=== PATIENT | male | born 1955 | race Caucasian/White ===

== ENCOUNTER 2023-03-21 21:50 | Outpatient (REF) | payer MEDICARE, SELFPAY | END 2023-03-21 21:51 | disposition home or self-care (01) | LOC: LAB 21:50 | PROVIDERS: PCP Internal Medicine; Visit Provider Internal Medicine | DX: N39.0 Urinary tract infection, site not specified (principal) | CPT/HCPCS: 87086; 87150; 87186 ==

== ENCOUNTER 2023-05-19 14:03 | Observation (INO) | payer MEDICARE, SELFPAY ==
[2023-05-19] VITALS (22 sets, daily range): BP systolic 132–186; BP diastolic 87–101; PULSE 75–129; RESP 13–24; TEMP 36.4–36.9; O2SAT 94–99; BMI 35.9; BMI 35.3
--- NOTE | 2023-05-19 14:08 | ECG_ITS ---
[facility] Test Date: 2023-05-19 Pat Name: SUSANNE GARCIA Department: Room: - Gender: Male Perch Machine Inspector: : 1955 Requested By: SHAIKH CELESTINO Order Number: [id number] Reading MD: JAMEL ARAIZA Measurements Intervals [place] Rate: 125 P: -30 CA: 144 QRS: 58 QRSD: 88 T: 58 QT: 298 QTc: 372 Interpretive Statements 1120 Sinus tachycardia 1574 with frequent ventricular premature complexes 4068 Nonspecific Twave abnormality 9140 abnormal rhythm ECG No previous ECG available for comparison Electronically Signed On 05-20-2023 7:05:56 EDT by JAMEL ARAIZA
--- NOTE | 2023-05-19 14:08 | ED.CHESTPAI1 ---
HPI - Chest Pain General Chief Complaint: Chest Pain Stated Complaint: chest pain Time Seen by Provider: 05/19/23 14:07 History of Present Illness HPI narrative: patient is a 68-year-old male with a history of hypertension, hyperlipidemia presents to the Emergency Room for an episode of feeling clammy with the low blood pressure and chest tightness that began just prior to arrival. He states he and his for [employer] when he had this episode, he states he is feeling better at this time. He states the chest tightness has been coming and going for a while, but it seems to be lasting longer recently. He has not had any fevers, cough, congestion. He denies any peripheral edema. He has no history of coronary artery disease or CVA. He is not a smoker. no medications taken prior to arrival Risk Factors Coronary artery disease risk factors: hyperlipidemia and hypertension Related Data Home Medications Medication Instructions Recorded Confirmed alfuzosin 10 mg tablet,extended 10 mg PO DAILY 05/19/23 05/19/23 release 24 hr allopurinol 300 mg tablet 300 mg PO DAILY 05/19/23 05/19/23 atorvastatin 20 mg tablet 20 mg PO DAILY 05/19/23 05/19/23 losartan 100 mg tablet 100 mg PO DAILY 05/19/23 05/19/23 Allergies Allergy/AdvReac Type Severity Reaction Status Date / Time Penicillins Allergy Severe Verified 05/19/23 14:05 sulfamethoxazole Allergy Severe Verified 05/19/23 14:12 [From Bactrim] trimethoprim [From Bactrim] Allergy Severe Verified 05/19/23 14:12 Review of Systems ROS Constitutional Denies: fever or chills Ears, nose, mouth, and throat Denies: throat pain Cardiovascular Reports: chest pain Respiratory Denies: shortness of breath or cough Gastrointestinal Denies: nausea or vomiting Musculoskeletal Denies: back pain, neck pain or extremity swelling Neurological Denies: headache Hematologic/Lymphatic Denies: easy bruising Allergic/Immunologic Denies: hives PFSH PFSH Social History Smoking status: Never smoker Exam Narrative Exam Narrative: Gen.: Awake, alert, in no distress Head: Normocephalic, atraumatic ENT: Moist mucous membranes Respiratory: No respiratory distress, lungs clear bilaterally Cardio: Regular rate and rhythm Gastrointestinal: Abdomen is soft, nondistended and nontender to palpation Extremities: Moves extremities equally, no pedal edema Psych: Normal mood and affect Neuro: No focal neuro deficit Skin: Warm, dry, intact Constitutional Vital Signs, click to edit/add: Last Vital Signs Temp 97.5 F L 05/19/23 14:06 Pulse 108 H 05/19/23 16:00 Resp 16 05/19/23 16:00 BP 156/91 H 05/19/23 16:00 Pulse Ox 94 L 05/19/23 16:00 O2 Del Method Room Air 05/19/23 14:06 Course Vital Signs Vital signs: Vital Signs Temperature 97.5 F L 05/19/23 14:06 Pulse Rate 129 H 05/19/23 14:06 Respiratory Rate 20 05/19/23 14:06 Blood Pressure 186/96 H 05/19/23 14:06 Pulse Oximetry 97 05/19/23 14:06 Oxygen Delivery Method Room Air 05/19/23 14:06 Temperature 97.5 F L 05/19/23 14:06 Pulse Rate 108 H 05/19/23 16:00 Respiratory Rate 16 05/19/23 16:00 Blood Pressure 156/91 H 05/19/23 16:00 Pulse Oximetry 94 L 05/19/23 16:00 Oxygen Delivery Method Room Air 05/19/23 14:06 MDM - Chest Pain MDM Narrative Medical decision making narrative: patient with risk factors, no severe chest pain in the Emergency Room but he was tachycardic. He was treated with aspirin and fluids with some improvement. CTA of the chest with no evidence of acute process. Repeat troponin is pending. Case was discussed with Dr. De La Vega who revealed that the patient has had a stress test in the last year, he is agreeable to admission, patient will be admitted to stepdown for further evaluation and treatment with cardiac rule out. Stable at this time on reevaluation by attending physician. Medical Records Data Attestation: I reviewed the patient's medical records. Lab Data Attestation: I reviewed the patient's lab results. Labs: Lab Results 05/19/23 05/19/23 Range/Units 14:16 15:41 WBC 10.0 (4.0-11.0) 10^3/uL RBC 5.38 (4.70-6.10) 10^6/uL Hgb 16.3 (14.0-18.0) g/dL Hct 48.4 (42.0-54.0) % MCV 90.0 (80.0-94.0) fL MCH 30.3 (25.9-34.0) pg MCHC 33.7 (29.9-35.2) g/dL RDW 12.9 (11.0-15.0) % Plt Count 179 (150-450) 10^3/uL MPV 11.5 (9.5-13.5) fL Neut % (Auto) 66.5 (43.0-75.0) % Lymph % (Auto) 23.5 (20.5-60.0) % [place] % (Auto) 8.8 (1.7-12.0) % Eos % (Auto) 0.4 L (0.9-7.0) % Baso % (Auto) 0.3 (0.2-2.0) % Neut # (Auto) 6.7 H (1.4-6.5) 10^3/uL Lymph # (Auto) 2.4 (1.2-3.8) 10^3/uL [place] # (Auto) 0.9 H (0.3-0.8) 10^3/uL Eos # (Auto) 0.0 (0.0-0.7) 10^3/uL Baso # (Auto) 0.0 (0.0-0.1) 10^3/uL Abs Immat Gran (auto) 0.05 H (0.00-0.03) 10^3/uL Imm/Tot Granulo (auto) 0.5 (0.0-0.5) % PT 10.6 (9.0-11.6) sec INR 1.00 APTT 25.2 (22.3-36.2) sec Sodium 137 (136-145) mmol/L Potassium 3.0 L (3.5-5.1) mmol/L Chloride 100 (98-107) mmol/L Carbon Dioxide 29.4 (21.0-32.0) mmol/L Anion Gap 10.6 BUN 14.0 (7.0-18.0) mg/dL Creatinine 1.25 (0.70-1.30) mg/dL Est GFR ( Amer) >60 (>=60) Est GFR (Non-Af Amer) 58 L (>=60) BUN/Creatinine Ratio 11.2 Glucose 166 H (74-106) mg/dL Calcium 9.3 (8.5-10.1) mg/dL Total Bilirubin 1.3 H (0.2-1.0) mg/dL AST 22 (15-37) U/L ALT 37 (16-63) U/L Alkaline Phosphatase 81 (46-116) U/L Troponin I High Sens 8.5 8.4 (4.0-76.1) pg/mL NT-Pro-B Natriuret Pep 9.0 (<=900.0) pg/mL Total Protein 7.1 (6.4-8.2) g/dL Albumin 4.2 (3.4-5.0) g/dL Globulin 2.9 g/dL Albumin/Globulin Ratio 1.[address] scan - chest: Attestation: I have reviewed the pertinent imaging results. Radiologist's impression: Procedure: CT angio chest EXAM: CT angio chest; [id number] REASON FOR EXAM: PE, Tachycardia, chest pain/hypotension TECHNIQUE: Helical CT images of the chest were obtained after the administration of IV contrast. Multiplanar reformats and maximum intensity projection images were created at the scanner. Dose reduction technique used: Automated exposure control and/or adjustment of the mA and/or kV according to patient size and/or use of iterative reconstruction technique. COMPARISON: None. FINDINGS: Technical quality: Adequate. Chest: Support devices: None. Visualized Thyroid: No nodules. Chest wall: Within normal limits. Maryuri/mediastinum/esophagus: No mass. Thoracic lymph nodes: No enlarged supraclavicular, mediastinal, hilar or axillary lymph nodes. Heart and vasculature: -No pulmonary artery filling defect to suggest pulmonary embolism. -No pericardial effusion or aortic aneurysm. -Severe coronary artery calcifications versus stents. Visualized portions of the upper abdomen: Within normal limits. Musculoskeletal: No acute abnormality or suspicious osseous lesion. Lungs/airways: -No significant nodule or infiltrate. -The central airways are patent. Pleura: No pleural effusion or pneumothorax. IMPRESSION: Negative exam. No pulmonary embolism or any acute cardiopulmonary abnormality demonstrated. Electronically authenticated by: SALVADOR REENE Date: 05/19/2023 15:56 ECG Data Attestation: I personally reviewed and interpreted this ECG as follows: (sinus tachycardia at a rate of 125, frequent PVCs with no acute ST elevation. EKG reviewed by attending physician) ECG interpretation date: 05/19/23 ECG interpretation time: 14:18 Heart Score History: Moderatly Suspicious ECG: Normal Age: >65 years Risk Factors: >3 Risk Factors/ HX of CAD:2 Troponin: <Normal Limit Total Heart Score Recommendations & Risks:: 5 Discharge Plan Discharge Chief Complaint: Chest Pain Clinical Impression: Chest pain Time of Disposition Decision: 16:13 Prescriptions / Home Meds: No Action allopurinol 300 mg tablet 300 mg PO DAILY losartan 100 mg tablet 100 mg PO DAILY atorvastatin 20 mg tablet 20 mg PO DAILY alfuzosin 10 mg tablet extended release 24 hr 10 mg PO DAILY Stand Alone Forms: Portal Instructions Referrals: Shaikh De La Vega MD [Primary Care Provider] - 1 week
[2023-05-19] MEDS: 0.9 % SODIUM CHLORIDE 1,000 ML 1000 ML IV (14:23)
[2023-05-19] MEDS: ASPIRIN 81 MG TAB.CHEW 162 MG PO (14:24)
[2023-05-19 14:25] LABS: Basophils Percent Auto 0.3 % (0.2-2.0); Eosinophils Percent Auto 0.4 % (0.9-7.0); Hematocrit 48.4 % (42.0-54.0); Hemoglobin 16.3 g/dL (14.0-18.0); Immature Granulocytes Abs Auto 0.05 10^3/uL (0.00-0.03); Immature Granulocytes Pct Auto 0.5 % (0.0-0.5); Lymphocytes Absolute Auto 2.4 10^3/uL (1.2-3.8); Lymphocytes Percent Auto 23.5 % (20.5-60.0); Mean Corpuscular HGB Conc 33.7 g/dL (29.9-35.2); Mean Corpuscular Hemoglobin 30.3 pg (25.9-34.0); Mean Platelet Volume 11.5 fL (9.5-13.5); Monocytes Absolute Auto 0.9 10^3/uL (0.3-0.8); Monocytes Percent Auto 8.8 % (1.7-12.0); Neutrophils Absolute Auto 6.7 10^3/uL (1.4-6.5); Neutrophils Percent Auto 66.5 % (43.0-75.0); Platelet Count 179 10^3/uL (150-450); Red Blood Count 5.38 10^6/uL (4.70-6.10); Red Cell Distribution Width 12.9 % (11.0-15.0)
[2023-05-19 14:40] LABS: Partial Thromboplastin Time 25.2 sec (22.3-36.2); Prothrombin Time 10.6 sec (9.0-11.6)
[2023-05-19 15:03] LABS: Alanine Aminotransferase 37 U/L (16-63); Albumin Globulin Ratio 1.4; Albumin Level 4.2 g/dL (3.4-5.0); Alkaline Phosphatase 81 U/L (46-116); Anion Gap 10.6; Aspartate Amino Transferase 22 U/L (15-37); BUN Creatinine Ratio 11.2; Bilirubin Total 1.3 mg/dL (0.2-1.0); Calcium 9.3 mg/dL (8.5-10.1); Carbon Dioxide 29.4 mmol/L (21.0-32.0); Chloride 100 mmol/L (98-107); Estimated GFR (African America >60 (>=60); Estimated GFR (Non-African Ame 58 (>=60); Globulin 2.9 g/dL; Glucose 166 mg/dL (74-106); Sodium 137 mmol/L (136-145); Total Protein 7.1 g/dL (6.4-8.2); Troponin I High Sensitivity 8.5 pg/mL (4.0-76.1)
--- NOTE | 2023-05-19 15:39 | CT_ITS ---
The [address] [address] Patient Name: SUSANNE GARCIA MRN: [id number] date: 1955 Sex: M Assigned Patient Location: ER Current Patient Location: Accession/Order Number: [id number] Exam Date: 05/19/2023 15:30 Report Date: 05/19/2023 15:56 At the request of: JEMAL ANDREW Procedure: CT angio chest EXAM: CT angio chest; [id number] REASON FOR EXAM: PE, Tachycardia, chest pain/hypotension TECHNIQUE: Helical CT images of the chest were obtained after the administration of IV contrast. Multiplanar reformats and maximum intensity projection images were created at the scanner. Dose reduction technique used: Automated exposure control and/or adjustment of the mA and/or kV according to patient size and/or use of iterative reconstruction technique. COMPARISON: None. FINDINGS: Technical quality: Adequate. Chest: Support devices: None. Visualized Thyroid: No nodules. Chest wall: Within normal limits. Maryuri/mediastinum/esophagus: No mass. Thoracic lymph nodes: No enlarged supraclavicular, mediastinal, hilar or axillary lymph nodes. Heart and vasculature: -No pulmonary artery filling defect to suggest pulmonary embolism. -No pericardial effusion or aortic aneurysm. -Severe coronary artery calcifications versus stents. Visualized portions of the upper abdomen: Within normal limits. Musculoskeletal: No acute abnormality or suspicious osseous lesion. Lungs/airways: -No significant nodule or infiltrate. -The central airways are patent. Pleura: No pleural effusion or pneumothorax. CT/CT angio chest IMPRESSION: Negative exam. No pulmonary embolism or any acute cardiopulmonary abnormality demonstrated. Electronically authenticated by: SALVADOR RENEE Date: 05/19/2023 15:56
[2023-05-19 16:13] LABS: Troponin I High Sensitivity 8.4 pg/mL (4.0-76.1)
--- NOTE | 2023-05-19 17:05 | CA_ITS ---
Patient: SUSANNE GARCIA Exam Date: 05/20/2023 : 1955 Gender:M Ordering : SHAIKH Miguel TIRADO . Admission #: [id number] Family : Order #: [id number] CLICK HERE TO VIEW EXAM ECHOCARDIOGRAM REPORT PROCEDURE: CA ECHO DOPPLER COMPLETE INDICATIONS: chest pain COMPARISON: None. DESCRIPTION: COMPLETE ECHOCARDIOGRAM Real-time transthoracic echocardiography with 2D, M-mode, spectral and color flow Doppler performed. QUALITY: Technical quality was good. LEFT VENTRICLE: Normal chamber size. Mild concentric left ventricular hypertrophy. LV EF: Global left ventricular systolic function is normal. Calculated left ventricular ejection fraction is 57%. No significant wall motion abnormalities. DIASTOLIC: Diastolic function is indeterminate. ATRIAL SEPTUM: Inadequately seen. LEFT ATRIUM: Normal chamber size. RIGHT ATRIUM: Mild dilatation. RIGHT VENTRICLE: Normal chamber size. Normal right ventricular systolic function. TRICUSPID VALVE: Normal mobility and thickness. No stenosis with trivial regurgitation. No evidence of pulmonary hypertension. RVSP 25mmHg MITRAL VALVE: Normal mobility and thickness. No evidence of mitral valve stenosis. There is no mitral annular calcification. Trivial mitral regurgitation. AORTIC VALVE: Normal trileaflet appearance. Normal leaflet mobility. No evidence of aortic valve stenosis. No aortic regurgitation. AORTIC ROOT: Normal diameter and appearance. PULMONIC VALVE: Normal thickness and mobility. No stenosis. Mild regurgitation. PERICARDIUM: Anterior free space; trivial effusion versus fat pad. IVC: Not well visualized. CONCLUSION: 1. Global left ventricular systolic function is normal; visually estimated ejection fraction is 55 to 60% 2. Left ventricular wall thickness is mildly increased 3. Diastolic function is indeterminate 4. Right atrium is mildly dilated 5. Right ventricle is normal in size and systolic function 6. Mild pulmonic regurgitation 7. Anterior free space; trivial effusion versus fat pad Adult Echocardiography Procedure Report Left Ventricle LVEDD (3.7 - 5.6 cm): 4.61 cm LVESD (2.2 - 4.0 cm): 3.11 cm LVIVS thickness (0.6 - 1.2 cm): 1.34 cm LVPW thickness (0.5 - 1.0 cm): 1.32 cm e': 0.06 m/s E - e': 8.19 LVOT Max Gradient: 2.04 mm[Hg] LVOT Area (cm2): 0.71 m/s Peak Velocity (LVOT): 0.71 m/s Mean Velocity (LVOT): 0.47 m/s LVOT Diameter 2.21 cm Left Ventricular Ejection Fraction: 57.03 % Left Atrium LA Volume Index (2D A2C): 33.50 ml/m2 Left Atrium Systolic Dimension: 3.82 cm Mitral Valve MV E to A Ratio: 0.64 Mitral Valve A-Wave Peak Velocity: 0.75 m/s Mitral Valve E-Wave Peak Velocity: 0.48 m/s Right Ventricle RV Internal Diastolic Dimension: 3.57 cm Aorta AO Root Diam: 3.22 cm Ascending Ao Diam: 3.14 cm Aortic Valve AoV Area (Peak Rangel): 2.82 cm2, 2.82 cm2 AoV Area (VTI): 2.62 cm2, 2.62 cm2 Peak Velocity(Antegrade Flow): 0.97 m/s Peak Gradient(Antegrade Flow): 3.77 mm[Hg] Mean Velocity(Antegrade Flow): 0.66 m/s Mean Gradient(Antegrade Flow): 2.00 mm[Hg] Velocity Time Integral: 18.72 cm Tricuspid Valve Peak Velocity (Regurgitant Flow): 2.23 m/s, 2.38 m/s Pulmonic Valve Mean Gradient: 1.15 mm[Hg], 1.13 mm[Hg], 2.68 mm[Hg] Mean Velocity: 0.53 m/s, 0.52 m/s, 0.78 m/s Peak Velocity: 0.79 m/s Peak Gradient: 1.55 mm[Hg], 1.55 mm[Hg], 5.01 mm[Hg] Right Atrium Right Atrium Systolic Pressure: 50.87 ml, 50.87 ml Dictated by: Rowena Sauer M.D. on 05/20/2023 at 15:13 Approved by: Rowena Sauer M.D. on 05/20/2023 at 15:20
[2023-05-19] MEDS: POTASSIUM CHLORIDE 10 MEQ ER TABLET 40 MEQ PO (17:48)
[2023-05-19 18:01] LABS: Estimated Average Glucose 114 mg/dL; Glycohemoglobin A1C 5.6 % (4.5-6.2)
[2023-05-19 21:12] LABS: Glucometer 96 mg/dL (74-106)
[2023-05-19] MEDS: ENOXAPARIN SODIUM 40 MG/0.4 ML SYRINGE SUBQ (21:12)
[2023-05-19] MEDS: CARVEDILOL 25 MG TABLET PO (21:12)
[2023-05-20] VITALS (11 sets, daily range): BP systolic 138–177; BP diastolic 84–99; PULSE 74–93; RESP 16–18; TEMP 36.6; O2SAT 95–97
[2023-05-20 05:46] LABS: Alanine Aminotransferase 31 U/L (16-63); Albumin Globulin Ratio 1.5; Albumin Level 3.8 g/dL (3.4-5.0); Alkaline Phosphatase 68 U/L (46-116); Anion Gap 9.1; Aspartate Amino Transferase 18 U/L (15-37); BUN Creatinine Ratio 13.6; Bilirubin Total 1.4 mg/dL (0.2-1.0); Calcium 8.4 mg/dL (8.5-10.1); Carbon Dioxide 31.5 mmol/L (21.0-32.0); Chloride 104 mmol/L (98-107); Estimated GFR (African America >60 (>=60); Estimated GFR (Non-African Ame >60 (>=60); Globulin 2.5 g/dL; Glucose 105 mg/dL (74-106); Potassium 3.6 mmol/L (3.5-5.1); Sodium 141 mmol/L (136-145); Total Protein 6.3 g/dL (6.4-8.2)
[2023-05-20 08:08] LABS: Glucometer 109 mg/dL (74-106)
--- NOTE | 2023-05-20 08:51 | CM.NOTE ---
Medicare Outpatient Observation Notice discussed with pt, pt verbalizes understanding and signs paper. Original given to pt and copy placed on pt's chart.
[2023-05-20] MEDS: ALLOPURINOL 300 MG TABLET PO (10:01)
[2023-05-20] MEDS: ALFUZOSIN HCL 10 MG TAB.ER.24H PO (10:01)
[2023-05-20] MEDS: HYDROCHLOROTHIAZIDE 25 MG TABLET PO (10:02)
[2023-05-20] MEDS: ATORVASTATIN CALCIUM 20 MG TABLET PO (10:02)
[2023-05-20] MEDS: CARVEDILOL 25 MG TABLET PO (10:02)
[2023-05-20] MEDS: LOSARTAN POTASSIUM 50 MG TABLET 100 MG PO (10:04)
--- NOTE | 2023-05-20 11:36 | CM.NOTE ---
Rounds made with ron Sharma to discharge pt to home. No discharge needs identified.
--- NOTE | 2023-05-20 12:10 | PM.HP ---
H&P: HPI History of Present Illness Chief complaint: Chest pain Narrative: HPI and Hospital Course 68 y o m with hx of HTN, HLD presents with chest discomfort, associated diaphoresis, palpitations that resolved on its own but wanted to come to ED just to be sure. He reports intermittent chest discomfort and chest tightness usually associated with food intake. At the same time, he has noticed on his smart watch that his heart rates regularly goes upto 140/150 range with exertion and when that happens he feels chest pressure. He is otherwise fairly active and exercise regularly. He had Holter monitor placed last year for intermittent palpitations that showed frequent PVCs but no SVT. He also had outpatient exercise stress test and an ECHO that was unremarkable. However, he was unable to achieve target HR on it. Given his symptoms, risk factors, I ordered a nuclear stress test but he refused because of claustrophobia and mentioned that he can't even if he was given an anxiolytic prior. Patient since admission has been in NSR, remained chest pain free and negative cardiac markers. 2D ECHO also is negative for any sig structural abnormality. Patient also seems to have an underlying anxiety disorder but is not on any medications for it. On arrival because of Sinus tachycardia - ED ordered CTA to r/o PE. CTA chest was negative for any PE but showed severe coronary vascular calcifications. 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 Admission Diagnosis Chest pain r/o ACS HTN HLD BPH Discharge diagnosis as above Discharge status stable Review of Systems ROS Status of ROS 10 or more systems reviewed and unremarkable except as noted in history and below [facility] Medical History Surgical History Social History (Updated 05/20/23 @ 12:21 by Shaikh Ceferino MD) Within the past year, how often did you have a drink containing alcohol: never Score interpretation: A score less than 4 is consistent with normal alcohol consumption. Smoking status: Never smoker Non-prescribed substance use: denies use Previous occupational history: retired Known occupational exposures/hazards: No Highest level of school completed/degree received: high school graduate Little interest or pleasure in doing things: not at all Feeling down, depressed, or hopeless: not at all Feel stressed/tense/nervous/anxious/difficulty sleeping: not at all Do you think of yourself as: straight/heterosexual Gender Identity: male Meds Home Medications and Allergies Home Medications Medication Instructions Recorded Confirmed Type alfuzosin 10 mg tablet,extended 10 mg PO DAILY 05/19/23 05/19/23 History release 24 hr allopurinol 300 mg tablet 300 mg PO DAILY 05/19/23 05/19/23 History atorvastatin 20 mg tablet 20 mg PO DAILY 05/19/23 05/19/23 History losartan 100 mg tablet 100 mg PO DAILY 05/19/23 05/19/23 History carvedilol 25 mg tablet 25 mg PO BID #60 tabs 05/20/23 Rx hydrochlorothiazide 25 mg tablet 25 mg PO DAILY #30 tabs 05/20/23 Rx potassium chloride 20 mEq 20 meq PO DAILY #30 tabs 05/20/23 Rx tablet,extended release Allergies Allergy/AdvReac Type Severity Reaction Status Date / Time Penicillins Allergy Severe Verified 05/19/23 14:05 sulfamethoxazole Allergy Severe Verified 05/19/23 14:12 [From Bactrim] trimethoprim [From Bactrim] Allergy Severe Verified 05/19/23 14:12 Exam Constitutional Vital Signs, click to edit/add: Last Vital Signs Temp 97.8 F 05/20/23 09:08 Pulse 78 05/20/23 10:16 Resp 18 05/20/23 09:08 BP 177/99 H 05/20/23 10:02 Pulse Ox 96 05/20/23 09:08 O2 Del Method Room Air 05/20/23 09:08 Documenting provider has reviewed patient's vital signs: yes Common normals: no apparent distress and oriented x3 General appearance: cooperative HENMT Common normals: normocephalic and head/scalp atraumatic Head and scalp: normocephalic and atraumatic Eye Common normals: conjunctivae normal and no scleral icterus Conjunctiva: conjunctiva(e) normal Respiratory Common normals: normal respiratory effort and clear to auscultation bilaterally Effort & inspection: able to speak in complete sentences Auscultation: clear to auscultation bilaterally Cardio Common normals: regular rate, S1 normal heart sound and S2 normal heart sound Rate: regular rate Heart sounds: S1 normal and S2 normal GI Common normals: Normal to inspection, nondistended, normoactive bowel sounds present, soft to palpation, non-tender and no hepatosplenomegaly Palpation: soft and no hepatosplenomegaly Extremity Common normals: no clubbing, cyanosis or edema Neuro Common normals: oriented x3, moves all extremities and no focal motor deficits Psych Common normals: mental status grossly normal, denies hallucinations, denies homicidal ideation and denies suicidal ideation Results Labs Labs: Short CBC 05/19/23 Range/Units 14:16 WBC 10.0 (4.0-11.0) 10^3/uL Hgb 16.3 (14.0-18.0) g/dL Hct 48.4 (42.0-54.0) % Plt Count 179 (150-450) 10^3/uL BMP 05/19/23 05/20/23 14:16 04:53 Sodium 137 141 Potassium 3.0 L 3.6 Chloride 100 104 Carbon Dioxide 29.4 31.5 BUN 14.0 12.0 Creatinine 1.25 0.88 Glucose 166 H 105 Calcium 9.3 8.4 L Liver Function 05/19/23 05/20/23 Range/Units 14:16 04:53 Total Bilirubin 1.3 H 1.4 H (0.2-1.0) mg/dL AST 22 18 (15-37) U/L ALT 37 31 (16-63) U/L Alkaline Phosphatase 81 68 (46-116) U/L Albumin 4.2 3.8 (3.4-5.0) g/dL Assessment and Plan Assessment and Plan (1) Chest pain: Qualifiers: Chest pain type: unspecified Qualified Code(s): R07.9 - Chest pain, unspecified (2) HTN (hypertension), benign: (3) High cholesterol: Plan EKG, tele, Trop and 2D ECHO - all unremarkable. Remains CP free since admission. Normal ETT 07/20. CTA chest negative for PE. But shows extensive coronary calcifications. Since, he has noticed intermittent palpitations and tachycardia with HR in 140-150 range - will d/c the patient with Holter monitor. No abnormality noted on Tele while inpatient. F.u next week as outpatient. Instructed to return to ED if persistent CP SOB, palpitations or abnormal HR.
--- NOTE | 2023-05-20 12:15 | CA_ITS ---
The [facility] Test Date: 2023-08-15 Pat Name: SUSANNE GARCIA Department: Room: [facility] Gender: Male Consignee: : 1955 Requested By: [id number] Order Number: [id number] Reading MD: JAMEL ARAIZA Interpretive Statements Predominant rhythm is sinus with average rate of 72 bpm Tachycardia - max rate of 175 bpm (associated with PSVT) - 3 episodes of PSVT with longest duration of 7 beats - longest episode of 1min 11sec with rates between 102-103 bpm Bradycardia - min rate of 42 bpm - 1 pause of 2.5sec duration Ventricular ectopy - 581 total (<1%) - 579 PVC - 2 couplets Patient triggered events: none Impression: Predominant rhythm is sinus with first degree AV block and average rate of 72 bpm Fastest rate of 175 bpm(PSVT) and slowest rate of 42 bpm 579 PVC, 2 couplets No atrial fib 1 pause of 2.5sec duration Electronically Signed On 08-18-2023 7:30:22 EST by JAMEL ARAIZA
--- NOTE | 2023-05-23 14:44 | CM.DCFOLLOWU ---
Person spoke with: pt's , pt was driving How are you feeling? well How is your pain? no pain Did you understand your discharge instructions? yes Do you have any questions about your discharge instructions? no Were you given any prescriptions at discharge? yes Were you able to get your prescriptions filled? only able to get one filled, the 2 others were not received by [facility]. Pt's has called Dr. De La Vega's office and left message. Will send a message to Dr. De La Vega as well to notify him. Do you understand how to take your medications as ordered? yes Do you have any questions about your follow up appointment and do you plan to keep your follow up appointment? no questions, will follow up Is there anything else that you would like to discuss? no, appreciative of care received at [facility] Questions/Comments/Concerns/Other:
== END 2023-05-20 12:20 | disposition home or self-care (01) ==
LOC: ER 16:15 → ICU 16:58
PROVIDERS: Physician Assistant; Admitting Provider Internal Medicine; Emergency Provider Emergency Medicine; PCP Internal Medicine; Visit Provider Internal Medicine
DX: R07.9 Chest pain, unspecified (principal); I10 Essential (primary) hypertension; E78.00 Pure hypercholesterolemia, unspecified; N40.0 Benign prostatic hyperplasia without lower urinary tract symptoms; Z79.899 Other long term (current) drug therapy
CPT/HCPCS: 36415; 71275; 80053; 82948; 83036; 83880; 84484; 85025; 85610; 85730; 93005; 93242; 93306; 94761; 96372; 99285; G0378; Q9967

== ENCOUNTER 2023-07-26 10:27 | Emergency (ER) | payer MEDICARE, SELFPAY ==
[2023-07-26] VITALS (16 sets, daily range): BP systolic 153–210; BP diastolic 83–131; PULSE 69–81; RESP 10–25; TEMP 36.4; O2SAT 95–98; BMI 35.3
--- NOTE | 2023-07-26 10:50 | ECG_ITS ---
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
--- NOTE | 2023-07-26 10:51 | ED_ITS ---
HPI - General Adult General Chief complaint: Weakness Stated complaint: GENERAL WEAKNESS Time Seen by Provider: 07/26/23 10:43 Source: patient and family Mode of arrival: walk-in Limitations: no limitations History of Present Illness HPI narrative: 68-year-old male presents for intermittent palpitations and dizziness. This has been an ongoing issue apparently for years. He was admitted to this hospital last month and he states they ran a lot of tests and didn't find anything. He has not been on any new medications in the past few days and nothing out of the ordinary has been happening in his life. Related Data Home Medications Medication Instructions Recorded Confirmed alfuzosin 10 mg tablet,extended 10 mg PO DAILY 05/19/23 07/26/23 release 24 hr allopurinol 300 mg tablet 300 mg PO DAILY 05/19/23 07/26/23 atorvastatin 20 mg tablet 20 mg PO DAILY 05/19/23 07/26/23 losartan 100 mg tablet 100 mg PO DAILY 05/19/23 07/26/23 pantoprazole 40 mg tablet,delayed 40 mg PO DAILY 07/26/23 07/26/23 release Previous Rx's Medication Instructions Recorded carvedilol 25 mg tablet 25 mg PO BID #60 tabs 05/20/23 potassium chloride 20 mEq 20 meq PO DAILY #30 tabs 05/20/23 tablet,extended release Allergies Allergy/AdvReac Type Severity Reaction Status Date / Time Penicillins Allergy Severe Verified 05/19/23 14:05 sulfamethoxazole Allergy Severe Verified 05/19/23 14:12 [From Bactrim] trimethoprim [From Bactrim] Allergy Severe Verified 05/19/23 14:12 Review of Systems ROS Narrative A ten point review of systems is negative except as noted above. [facility] Medical History Surgical History Social History (Updated 05/20/23 @ 12:21 by Shaikh Ceferino MD) Within the past year, how often did you have a drink containing alcohol: never Score interpretation: A score less than 4 is consistent with normal alcohol consumption. Smoking status: Never smoker Non-prescribed substance use: denies use Previous occupational history: retired Known occupational exposures/hazards: No Highest level of school completed/degree received: high school graduate Little interest or pleasure in doing things: not at all Feeling down, depressed, or hopeless: not at all Feel stressed/tense/nervous/anxious/difficulty sleeping: not at all Do you think of yourself as: straight/heterosexual Gender Identity: male Exam Narrative Exam Narrative: Nurses note and vital signs reviewed and patient is not hypoxic. General: The patient appears well and in no apparent distress. Patient is resting comfortably on cart. Skin: Warm, dry, no pallor noted. There is no rash noted. Head: Normocephalic, atraumatic Eye: Normal conjunctiva, no drainage Ears, Nose, Mouth, and Throat: oral mucosa is moist. Nares patent. Cardiovascular: Regular Rate and Rhythm Respiratory: Patient is in no distress, no accessory muscle use, lungs are clear to auscultation, no wheezing, rales or rhonchi Back: non-tender GI: soft and nontender Musculoskeletal: The patient has no evidence of calf tenderness, no pitting edema, symmetrical pulses noted bilaterally Neurological: A&O, normal speech Psychiatric: Cooperative Constitutional Vital Signs, click to edit/add: Last Vital Signs Temp 97.6 F 07/26/23 10:31 Pulse 74 07/26/23 11:50 Resp 25 H 07/26/23 11:50 BP 153/88 H 07/26/23 11:41 Pulse Ox 97 07/26/23 11:50 O2 Del Method Room Air 07/26/23 10:31 Course Vital Signs Vital signs: Vital Signs Temperature 97.6 F 07/26/23 10:31 Pulse Rate 76 07/26/23 10:31 Respiratory Rate 18 07/26/23 10:31 Pulse Oximetry 98 07/26/23 10:31 Oxygen Delivery Method Room Air 07/26/23 10:31 Temperature 97.6 F 07/26/23 10:31 Pulse Rate 74 07/26/23 11:50 Respiratory Rate 25 H 07/26/23 11:50 Blood Pressure 153/88 H 07/26/23 11:41 Pulse Oximetry 97 07/26/23 11:50 Oxygen Delivery Method Room Air 07/26/23 10:31 Medical Decision Making MDM Narrative Medical decision making narrative: The patient has had some PVCs here and at times had bigeminy. His laboratory analysis is negative and he had a recent echo that was showing no acute findings. 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 Treatment diagnosis and follow-up were discussed with the patient and his . Differential Diagnosis Differential Diagnosis: PVCs, fibrillation, atrial flutter Lab Data Lab results reviewed: Yes I reviewed the patient's lab results Labs: Lab Results 07/26/23 Range/Units 10:45 WBC 7.5 (4.0-11.0) 10^3/uL RBC 5.38 (4.70-6.10) 10^6/uL Hgb 15.8 (14.0-18.0) g/dL Hct 48.0 (42.0-54.0) % MCV 89.2 (80.0-94.0) fL MCH 29.4 (25.9-34.0) pg MCHC 32.9 (29.9-35.2) g/dL RDW 13.2 (11.0-15.0) % Plt Count 144 L (150-450) 10^3/uL MPV 11.8 (9.5-13.5) fL Neut % (Auto) 63.5 (43.0-75.0) % Lymph % (Auto) 24.9 (20.5-60.0) % [place] % (Auto) 9.2 (1.7-12.0) % Eos % (Auto) 1.2 (0.9-7.0) % Baso % (Auto) 0.4 (0.2-2.0) % Neut # (Auto) 4.7 (1.4-6.5) 10^3/uL Lymph # (Auto) 1.9 (1.2-3.8) 10^3/uL [place] # (Auto) 0.7 (0.3-0.8) 10^3/uL Eos # (Auto) 0.1 (0.0-0.7) 10^3/uL Baso # (Auto) 0.0 (0.0-0.1) 10^3/uL Abs Immat Gran (auto) 0.06 H (0.00-0.03) 10^3/uL Imm/Tot Granulo (auto) 0.8 H (0.0-0.5) % Sodium 139 (136-145) mmol/L Potassium 3.5 (3.5-5.1) mmol/L Chloride 100 (98-107) mmol/L Carbon Dioxide 29.9 (21.0-32.0) mmol/L Anion Gap 12.6 BUN 11.0 (7.0-18.0) mg/dL Creatinine 0.93 (0.70-1.30) mg/dL Est GFR ( Amer) >60 (>=60) Est GFR (Non-Af Amer) >60 (>=60) BUN/Creatinine Ratio 11.8 Glucose 154 H (74-106) mg/dL Calcium 8.7 (8.5-10.1) mg/dL TSH 4.059 H (0.358-3.740) uIU/mL Imaging Data Chest x-ray: Radiologist's impression: Procedure: XR chest 1V EXAMINATION: XR chest 1V HISTORY: palpitations COMPARISON: No relevant comparison available. FINDINGS: LUNGS: Underexpanded lungs. No significant pulmonary parenchymal abnormalities. VASCULATURE: No increased pulmonary vasculature. PLEURA: No pneumothorax, effusion, or pleural thickening. CARDIAC: No cardiomegaly or cardiac silhouette abnormality. MEDIASTINUM: No visible mass or adenopathy. BONES: No fracture or visible bone lesion. OTHER: Negative. IMPRESSION: 1. Low lung volume examination; no appreciable acute cardiopulmonary process. Electronically authenticated by: SIMONE CALIX Date: 07/26/2023 11:35 ECG Data Attestation: I personally reviewed and interpreted this ECG as follows: (EKG on my interpretation shows sinus rhythm with PVCs) Discharge Plan Discharge Chief Complaint: Weakness Clinical Impression: Frequent PVCs Patient Disposition: Home, Self-Care Time of Disposition Decision: 11:53 Condition: Good Mode of Transportation: Private Vehicle Prescriptions / Home Meds: No Action pantoprazole 40 mg tablet,delayed release (DR/EC) 40 mg PO DAILY allopurinol 300 mg tablet 300 mg PO DAILY losartan 100 mg tablet 100 mg PO DAILY atorvastatin 20 mg tablet 20 mg PO DAILY alfuzosin 10 mg tablet extended release 24 hr 10 mg PO DAILY carvedilol 25 mg tablet 25 mg PO BID Qty: 60 0RF Rx Instructions: must administer with a meal/food potassium chloride 20 mEq tablet extended release 20 meq PO DAILY Qty: 30 0RF Instructions: Premature Ventricular Contractions (ED) Additional Instructions: Follow-up with your machine riveter Stand Alone Forms: Portal Instructions Referrals: Shaikh De La Vega MD [Primary Care Provider] - 1 week Discharge Date/Time: 07/26/23 12:23
--- NOTE | 2023-07-26 11:00 | XR_ITS ---
The [address] [address] Patient Name: SUSANNE GARCIA MRN: [id number] date: 1955 Sex: M Assigned Patient Location: ER Current Patient Location: ER Accession/Order Number: [id number] Exam Date: 07/26/2023 10:55 Report Date: 07/26/2023 11:35 At the request of: CAROL SURESH Procedure: XR chest 1V EXAMINATION: XR chest 1V HISTORY: palpitations COMPARISON: No relevant comparison available. FINDINGS: LUNGS: Underexpanded lungs. No significant pulmonary parenchymal abnormalities. VASCULATURE: No increased pulmonary vasculature. PLEURA: No pneumothorax, effusion, or pleural thickening. CARDIAC: No cardiomegaly or cardiac silhouette abnormality. MEDIASTINUM: No visible mass or adenopathy. BONES: No fracture or visible bone lesion. OTHER: Negative. XR/XR chest 1V IMPRESSION: 1. Low lung volume examination; no appreciable acute cardiopulmonary process. Electronically authenticated by: SIMONE CALIX Date: 07/26/2023 11:35
[2023-07-26 11:01] LABS: Basophils Percent Auto 0.4 % (0.2-2.0); Eosinophils Absolute Auto 0.1 10^3/uL (0.0-0.7); Eosinophils Percent Auto 1.2 % (0.9-7.0); Hemoglobin 15.8 g/dL (14.0-18.0); Immature Granulocytes Abs Auto 0.06 10^3/uL (0.00-0.03); Immature Granulocytes Pct Auto 0.8 % (0.0-0.5); Lymphocytes Absolute Auto 1.9 10^3/uL (1.2-3.8); Lymphocytes Percent Auto 24.9 % (20.5-60.0); Mean Corpuscular HGB Conc 32.9 g/dL (29.9-35.2); Mean Corpuscular Hemoglobin 29.4 pg (25.9-34.0); Mean Corpuscular Volume 89.2 fL (80.0-94.0); Mean Platelet Volume 11.8 fL (9.5-13.5); Monocytes Absolute Auto 0.7 10^3/uL (0.3-0.8); Monocytes Percent Auto 9.2 % (1.7-12.0); Neutrophils Absolute Auto 4.7 10^3/uL (1.4-6.5); Neutrophils Percent Auto 63.5 % (43.0-75.0); Platelet Count 144 10^3/uL (150-450); Red Blood Count 5.38 10^6/uL (4.70-6.10); Red Cell Distribution Width 13.2 % (11.0-15.0); White Blood Count 7.5 10^3/uL (4.0-11.0)
[2023-07-26 11:32] LABS: Anion Gap 12.6; BUN Creatinine Ratio 11.8; Calcium 8.7 mg/dL (8.5-10.1); Carbon Dioxide 29.9 mmol/L (21.0-32.0); Chloride 100 mmol/L (98-107); Estimated GFR (African America >60 (>=60); Estimated GFR (Non-African Ame >60 (>=60); Glucose 154 mg/dL (74-106); Potassium 3.5 mmol/L (3.5-5.1); Sodium 139 mmol/L (136-145); Thyroid Stimulating Hormone 4.059 uIU/mL (0.358-3.740)
== END 2023-07-26 12:23 | disposition home or self-care (01) ==
PROVIDERS: Emergency Provider Emergency Medicine; PCP Internal Medicine
DX: I49.3 Ventricular premature depolarization (principal); Z79.899 Other long term (current) drug therapy
CPT/HCPCS: 36415; 71045; 80048; 84443; 85025; 93005; 99285

== ENCOUNTER 2023-10-03 08:53 | Outpatient (OUT) | payer MEDICARE, SELFPAY ==
--- OUTSIDE RECORDS SUMMARY | 2023-10-03 08:55 | XMS_ITS | CCD ---
Author Name Unknown Address [address] [facility] [address] [place] [address] Organization [facility] Care Team Providers Care Director Of Rehabilitative Services Name Role Phone Famónicad, Martinez Unavailable Unavailable Unavailable Farhana Polo Unavailable Haley Veridn Unavailable Aime Uribe II Referring Unavailable Rony ASKEW, Aime Attending Unavailable RONY ASKEW, Dr. SALOMON Attending Unavaila manoj URIBE II, Dr. SALOMON Referring Unavaila ble FAWWAD, MARTINEZ Primary Care Physician FAWWAD, MARTINEZ H Attending Unavailable FAWWAD, MARTINEZ H Admitting Unavailable FAWWAD, MARTINEZ H Consulting Unavailable FAWWAD, MARTINEZ H Primary Care Unavailable FAWWAD, MARTINEZ H Admitting Unavailable FAWWAD, MARTINEZ H Attending Unavailable FAWWAD, MARTINEZ H Consulting Unavailable FAWWAD, MARTINEZ H Primary Care Unavailable FAWWAD, MARTINEZ H Admitting Unavailable FAWWAD, MARTINEZ H Attending Unavailable FAWWAD, MARTINEZ H Consulting Unavailable FAWWAD, MARTINEZ H Primary Care Unavailable ALMA Nguyen, DR WEBB Consulting Unavailable ALMA ., DR WEBB Admitting Unavailable ALMA Nguyen, DR WEBB Attending Unavailable FAWWAD, MARTINEZ H Primary Care Unavailable AICHHOLZ, [facility] CONSULTANT YANNI Admitting Unavailable AICHHOLZ, [facility] CONSULTANT YANNI Attending Unavailable AICHHOLZ, [facility] CONSULTANT YANNI Consulting Unavailable FAWWAD, MARTINEZ H Primary Care Unavailable FAWWAD, MARTINEZ H Attending Unavailable FAWWAD, MARTINEZ H Admitting Unavailable FAWWAD, MARTINEZ H Consulting Unavailable FAWWAD, MARTINEZ H Primary Care Unavailable DR SIMONE CALIX Consulting Unavailable FAWWAD, MARTINEZ H Attending Unavailable FAWWAD, MARTINEZ H Admitting Unavailable FAWWAD, MARTINEZ H Primary Care Unavailable FAWWAD, MARTINEZ H Consulting Unavailable FAWWAD, MARTINEZ H Primary Care Unavailable FAWWAD, MARTINEZ H Admitting Unavailable FAWWAD, MARTINEZ H Attending Unavailable FAWWAD, MARTINEZ H Consulting Unavailable FAWWAD, MARTINEZ H Attending Unavailable FAWWAD, MARTINEZ H Admitting Unavailable FAWWAD, MARTINEZ H Consulting Unavailable FAWWAD, MARTINEZ H Primary Care Unavailable Isidro CHAPIN Attending Unavailable ALMA, Isidro Alvarado Attending Unavailable FAWWAD, MARTINEZ Primary Care Unavailable Isidro CHAPIN Attending Unavailable FAWWAD, MARTINEZ Primary Care Unavailable Isidro CHAPIN Attending Unavailable FAWWAD, MARTINEZ Primary Care Unavailable FAWWAD, MARTINEZ Referring Unavailable Allergies Allergy Classification Reported Allergen(s) Allergy Type Date of Onset Reaction(s) Facility (8 sources) Penicillins; Translations: [Penicillins] Allergy to drug (finding) Difficulty breathing (finding) [facility] (2 sources) Penicillin V Drug Allergy [facility] Other (1 source) Penicillin Drug Allergy [facility] Other (2 sources) Sulfamethoxazole / Trimethoprim; Translations: [sulfamethoxazole-tr imethoprim] Drug Allergy Skin irritation (disorder) [facility] Medications Current Medications Medication Drug Class(es) Dates Sig (Normalized) Sig (Original) 24 hr alfuzosin hydrochloride 10 mg extended release oral tablet (4 sources) alpha-Adrenergic Brooke Start: 07-29-2023 take 1 tablet by mouth once daily alfuzosin 10 mg ER Tab 10 mg = 1 tab(s), Oral, Daily, # 90 tab(s), Refills(s) 3, Pharmacy: [facility] [id number], 184, cm, 07/29/23 8:36:00 EST, Height/Length Dosing, 122.5, kg, 07/29/23 8:36:00 EST, Weight Dosing Start Date: 07/29/23 Status: Ordered Start: 10-29-2022 take 1 tablet by sujit th once daily alfuzosin 10 mg ER Tab 10 mg = 1 tab(s), Oral, Daily, # 30 tab(s), Refills(s) 11, Pharmacy: [facility] [id number], 184, cm, 10/29/22 9:27:00 EST, Height/Length Dosing, 122, kg, 10/29/22 9:27:00 EST, Weight Dosing Start Date: 10/29/22 Status: Ordered Allopurinol (4 sources) Xanthine Oxidase Inhibitor Start: 10-29-2022 allopurinol 300 mg, Refills(s) 0 Start Date: 10/29/22 Status: Ordered Start: 10-29-2022 allopurinol Re fills(s) 0 Start Date: 10/29/22 Status: Ordered take 1 tablet by sujit th every twenty-four hours Allopurinol 300 MG 1 tablet Orally Once a day Active amLODIPine 5 mg oral tablet (1 source) Dihydropyridine Calcium Channel Brooke Start: 01-10-2023 amLODIPine 5 mg Tab Refills(s) 0 Start Date: 01/10/23 Status: Ordered Atenolol (2 sources) beta-Adrenergic Brooke Start: 10-29-2022 atenol ol 100 mg, Refills(s) 0 Start Date: 10/29/22 Status: Ordered Start: 10-29-2022 atenolol Refil ls(s) 0 Start Date: 10/29/22 Status: Ordered atorvastatin (10 sources) HMG-CoA Reductase Inhibitor Start: 10-29-2022 atorvastatin 20 mg, Refills(s) 0 Start Date: 10/29/22 Status: Ordered Start: 10-29-2022 atorvastatin R efills(s) 0 Start Date: 10/29/22 Status: Ordered Atorvastatin Joaquin cium Active take 1 tablet by sujit th at bedtime Atorvastatin Calcium 20 MG Oral Tablet TAKE 1 TABLET AT BEDTIME. Quantity: 0 Refills: 0 Ordered: 29-Mar-2022 DO Active carvedilol 25 mg oral tablet (2 sources) alpha-Adrenergic Brooke, beta-Adrenergic Brooke Start: 07-29-2023 carvedilol 25 mg Tab Refills(s) 0 Start Date: 07/29/23 Status: Ordered take 1 tablet by sujit th every twelve hours Carvedilol 12.5 MG 1 tablet with food Orally Twice a day Active famotidine 40 mg oral tablet (5 sources) Histamine-2 Receptor Antagonist Start: 01-10-2023 famotidine 40 mg Tab Refills(s) 0 Start Date: 01/10/23 Status: Ordered Start: 04-23-2022 take 1 tablet by sujit th once daily Famotidine 40 MG Oral Tablet TAKE 1 TABLET DAILY. Quantity: 90 Refills: 3 Ordered: 23-Apr-2022 Aime Uribe MD Start : 23-Apr-2022 Active Famotidine Not-T aking Famotidine Activ e Losartan (4 sources) Angiotensin 2 Receptor Brooke Start: 10-29-2022 losartan 100 mg, Refills(s) 0 Start Date: 10/29/22 Status: Ordered Start: 10-29-2022 losartan Refil ls(s) 0 Start Date: 10/29/22 Status: Ordered take 1 tablet by sujit every twenty-four hours Losartan Potassium 100 MG 1 tablet Orally Once a day Active ofloxacin 3 mg/ml ophthalmic solution (1 source) Quinolone Antimicrobial Start: 03-07-2023 Ofloxacin 0.3 % 10 drops into affected ear Otic Once a day for 7 day(s) Feb, Active pantoprazole 40 mg delayed release oral tablet (1 source) Proton Pump Inhibitor Start: 07-29-[address] Tab Refills(s) 0 Start Date: 07/29/23 Status: Ordered Paxlovid (300/100) 20 x 150 MG & 10 x 100MG (1 source) Paxlovid (300/10 0) 20 x 150 MG & 10 x 100MG as directed Orally twice daily for 5 days Active potassium chloride 20 meq oral tablet (8 sources) Start: 07-29-2023 Potassium Chlo ride (Eqv-K-Tab) 20 mEq oral tablet, extended release Refills(s) 0 Start Date: 07/29/23 Status: Ordered Klor-Con M20 20 MEQ Oral for 90 Days Not-Taking sulfamethoxazole 800 mg / trimethoprim 160 mg oral tablet (1 source) Dihydrofolate Reductase Inhibitor Antibacterial, Sulfonamide Antimicrobial Start: 10-29-2022 take 1 tablet by mouth twice daily Bactrim D.S. 800 mg-160 mg Tab 1 tab(s), Oral, BID, 42 tab(s), Refill(s) 0, [facility] [id number], 184, cm, 10/29/22 9:27:00 EST, Height/Length Dosing, 122, kg, 10/29/22 9:27:00 EST, Weight Dosing Start Date: 10/29/22 Status: Ordered Completed/Discontinued Medications Medication Drug Class(es) Dates Sig (Normalized) Sig (Original) Atenolol / Chlorthalidone (7 sources) Thiazide-like Diuretic, beta-Adrenergic Brooke Atenolol-Chlorthali done Not-Taking Atenolol-Chlorth alidone Active take 1 tablet by mouth once lu y Atenolol-Chlorthalidone 100-25 MG Oral Tablet TAKE 1 TABLET DAILY. Quantity: 0 Refills: 0 Ordered: 29-Mar-2022 DO Active predniSONE 10 mg oral tablet (2 sources) Start: 05-27-2022 take 3 tablets by mouth every twenty-four hours prednisone 10 MG 3 tablets Orally daily for 5 days Apr, Not-Taking Problems Active Problems Problem Classification Problem Date Documented Da te Episodic/Chronic Calculus of urinary tract (6 sources) History of calculus of kidney; Translations: [Personal history of urinary calculi] Onset: 10-29-2022 Episodic Cardiac dysrhythmias (5 sources) Ventricular premature beats; Translations: [Other premature beats] Onset: 04-21-2022 Chronic Cardiac dysrhythmias (7 sources) Intermittent palpitations; Translations: [Palpitations] Onset: 02-09-2022 10-22-2022 Episodic Disorders of lipid metabolism (5 sources) Hyperlipidemia; Translations: [Other and unspecified hyperlipidemia] Onset: 06-03-2022 Chronic Essential hypertension (8 sources) Hypertensive disorder; Translations: [Unspecified essential hypertension] Onset: 02-11-2022 10-22-2022 Chronic Gout and other crystal arthropathies (10 sources) Gout; Translations: [Gout, unspecified] Onset: 05-31-2022 Chronic Hyperplasia of prostate (10 sources) Benign prostatic hypertrophy with outflow obstruction; Translations: [Benign prostatic hyperplasia with lower urinary tract symptoms] Onset: 10-29-2022 Chronic Inflammatory conditions of male genital organs (4 sources) Prostatitis; Translations: [Inflammatory disease of prostate, unspecified] Onset: 10-29-2022 Episodic Nonspecific chest pain (5 sources) Chest pain; Translations: [Other chest pain] Onset: 04-21-2022 Episodic Other ear and sense organ disorders (1 source) Swimmer's ear, right ear Episodic Other ear and sense organ disorders (1 source) Impacted cerumen, right ear Episodic Other male genital disorders (2 sources) H/O: male genital disorder; Translations: [Personal history of other diseases of male genital organs] Onset: 01-10-2023 Episodic Other male genital disorders (1 source) History of prostatitis 07-29-2023 Episodic Other non-traumatic joint disorders (3 sources) Knee pain 10-22-2022 Episodic Other nutritional; endocrine; and metabolic disorders (7 sources) Obesity; Translations: [Obesity, unspecified] 10-22-2022 Chronic Other nutritional; endocrine; and metabolic disorders (1 source) Obese class II; Translations: [Body mass index (BMI) 36.0-36.9, adult] Onset: 01-10-2023 Chronic Other screening for suspected conditions (not mental disorders or infectious disease) (1 source) Encounter for screening for malignant neoplasm of prostate; Translations: [Screening for malignant neoplasm done] Onset: 07-29-2023 Episodic Unclassified (1 source) Patient encounter status 07-29-2023 Urinary tract infections (10 sources) Recurrent urinary tract infection; Translations: [Urinary tract infectious disease] Onset: 09-16-2022 10-29-2022 Episodic Past or Other Problems Problem Classification Problem Date Documented Date Episodic/Chronic Fluid and electrolyte disorders (5 sources) Hypokalemia; Translations: [HYPOKALEMIA] Onset: 04-12-2022 Episodic Genitourinary symptoms and ill-defined conditions (4 sources) Unspecified symptoms and signs involving the genitourinary system; Translations: [UNS SYMPTOMS SIGNS INVLV SYSTEM] Onset: 09-09-2022 Episodic Immunizations and screening for infectious disease (4 sources) Patient encounter status; Translations: [Other specified vaccination] Resolved: 03-29-2022 Episodic Other non-traumatic joint disorders (4 sources) Pain in right knee; Translations: [PAIN IN RIGHT KNEE] Onset: 06-23-2022 Episodic Unclassified (4 sources) Never smoked tobacco; Translations: [Never a smoker] Unclassified (1 source) Contact with and (suspected) exposure to covid-19 Z20.822 Onset: 05-14-2022 Resolved: 05-14-2022 Viral infection (1 source) COVID-19 Onset: 05-14-2022 Resolved: 05-14-2022 Results Test Name Value Interpretation Reference Range Facility Ambulatory Visit Summaryon 1 09-29-2022 Ambulatory Visit Summary SUSANNE GARCIA :1955 Visit Date:07/29/2023 Ambulatory Visit Instructions Your Diagnosis BPH with urinary obstruction History of kidney stones History of prostatitis Screening PSA (prostate specific antigen) Tests Performed Urnls Dip Stick Auto w/o Microscopy POC [id number] Your Care Team Attending Physician - Isidro CHAPIN MD Primary Care Physician - SHAIKH DE LA VEGA MD This Is Your Medications List alfuzosin (alfuzosin 10 mg ER Tab) Contact prescribing physician if questions or concerns allopurinol atorvastatin carvedilol (carvedilol 25 mg Tab) losartan pantoprazole (Pantoprazole [address] Tab) potassium chloride (Potassium Chloride (Eqv-K-Tab) 20 mEq oral tablet, extended release) Procedures Performed Foot, Tonsillectomy. Discharge Vitals Heart Rate (Peripheral) 79 Respiratory Rate 16 Blood Pressure 132/89 Height 184 cm Height 72 in Weight 122.5 kg Weight 269.5 lb BMI 36.18 What to do next Scheduled Follow-Up Appointments Tuesday 8:45 AM EST With: ALMA RAE, Isidro Alvarado Where: [facility] Patient Educationon 07-29-20 23 Patient Education Urology Benign Prostatic Hyperplasia Benign prostatic hyperplasia (BPH) is an enlarged prostate gland that is caused by the normal aging process. The prostate may get bigger as a man gets older. The condition is not caused by cancer. The prostate is a walnut-sized gland that is involved in the production of semen. It is located in front of the rectum and below the bladder. The bladder stores urine. The urethra carries stored urine out of the body. An enlarged prostate can press on the urethra. This can make it harder to pass urine. The buildup of urine in the bladder can cause infection. Back pressure and infection may progress to bladder damage and kidney (renal) failure. What are the causes? This condition is part of the normal aging process. However, not all men develop problems from this condition. If the prostate enlarges away from the urethra, urine flow will not be blocked. If it enlarges toward the urethra and compresses it, there will be problems passing urine. What increases the risk? This condition is more likely to develop in men older than 50 years. What are the signs or symptoms? Symptoms of this condition include: ? Getting up often during the night to urinate. ? Needing to urinate frequently during the day. ? Difficulty starting urine flow. ? Decrease in size and strength of your urine stream. ? Leaking (dribbling) after urinating. ? Inability to pass urine. This needs immediate treatment. ? Inability to completely empty your bladder. ? Pain when you pass urine. This is more common if there is also an infection. ? Urinary tract infection (UTI). How is this diagnosed? This condition is diagnosed based on your medical history, a physical exam, and your symptoms. Tests will also be done, such as: ? A post-void bladder scan. This measures any amount of urine that may remain in your bladder after you finish urinating. ? A digital rectal exam. In a rectal exam, your health care provider checks your prostate by putting a lubricated, gloved finger into your rectum to feel the back of your prostate gland. This exam detects the size of your gland and any abnormal lumps or growths. ? An exam of your urine (urinalysis). ? A prostate specific antigen (PSA) screening. This is a blood test used to screen for prostate cancer. ? An ultrasound. This test uses sound waves to electronically produce a picture of your prostate gland. Your health care provider may refer you to a specialist in kidney and prostate diseases (urologist). How is this treated? Once symptoms begin, your health care provider will monitor your condition (active surveillance or watchful waiting). Treatment for this condition will depend on the severity of your condition. Treatment may include: ? Observation and yearly exams. This may be the only treatment needed if your condition and symptoms are mild. ? Medicines to relieve your symptoms, including: ? Medicines to shrink the prostate. ? Medicines to relax the muscle of the prostate. ? Surgery in severe cases. Surgery may include: ? Prostatectomy. In this procedure, the prostate tissue is removed completely through an open incision or with a laparoscope or robotics. ? Transurethral resection of the prostate (TURP). In this procedure, a tool is inserted through the opening at the tip of the penis (urethra). It is used to cut away tissue of the inner core of the prostate. The pieces are removed through the same opening of the penis. This removes the blockage. ? Transurethral incision (TUIP). In this procedure, small cuts are made in the prostate. This lessens the prostate's pressure on the urethra. ? Transurethral microwave thermotherapy (TUMT). This procedure uses microwaves to create heat. The heat destroys and removes a small amount of prostate tissue. ? Transurethral needle ablation (TUNA). This procedure uses radio frequencies to destroy and remove a small amount of prostate tissue. ? Interstitial laser coagulation (ILC). This procedure uses a laser to destroy and remove a small amount of prostate tissue. ? Transurethral electrovaporization (TUVP). This procedure uses electrodes to destroy and remove a small amount of prostate tissue. ? Prostatic urethral lift. This procedure inserts an implant to push the lobes of the prostate away from the urethra. Follow these instructions at home: ? Take fixz-gfl-nfvwndi and prescription medicines only as told by your health care provider. ? Monitor your symptoms for any changes. Contact your health care provider with any changes. ? Avoid drinking large amounts of liquid before going to bed or out in public. ? Avoid or reduce how much caffeine or alcohol you drink. ? Give yourself time when you urinate. ? Keep all follow-up visits. This is important. Contact a health care provider if: ? You have unexplained back pain. ? Your symptoms do not get better with treatment. ? You develop side effects from the medicine (more content not included)... Normal [facility] Urology Office/Clinic Noteon 07-29-2023 Urology Office/Clinic Note Chief Complaint BPH with urinary obstruction HPI Staff Pt is here for 6 month f/u. Previous dx of BPH with urinary obstruction, hx of kidney stones and hx of prostatitis. Dysuria: no Incomplete bladder emptying: pt feels he is emptying well Hematuria: no Frequency: no Urgency: no Nocturia: 0-1x Stream: good steady stream Leaking: no Post void dripping: no Wearing pads/ Depends: no Urge incontinence: no Stress incontinence: no Incontinence without Sensory Awareness: no Abdominal pain: no Flank pain: no Sexual complaints: no History of Present Illness Tests reviewed: reviewed UA. I have reviewed the previous health record information and history for this patient from Dr. Chapin. I have reviewed and verified the staff HPI to be accurate for this encounter. There have been no associated fever, chills, flank pain, or blood in the urine. Denies any urinary infections since last encounter. Review of Systems PHQ Score Initial Depression Screen Score: 0 SCORE ROS - Provider Constitutional: denies weight loss, denies hot flashes. Eyes: denies eye problems. Gastrointestinal: denies nausea, denies vomiting. Cardiovascular: denies chest pain or angina. Integumentary: no dryness Musculoskeletal: denies musculoskeletal symptoms. ENMT: denies otolaryngeal symptoms. Respiratory: no shortness of breath. Heme/Lymph: denies easy bleeding tendency, denies easy bruising tendency. Psychiatric: no confusion, no anxiety. Genitourinary: See HPI. Physical Exam Vitals & Measurements HR: 79(Peripheral) RR: 16 BP: 132/89 HT: 72 in HT: 184 cm WT: 122.5 kg WT: 269.5 lb BMI: 36.18 General Appearance: alert, no distress, well nourished, well developed male. Genitourinary: normal scrotum, normal testes, normal urethra, normal epididymis, normal vas deferens/spermatic cord. Flank Pain: none. Bladder: nonpalpable. Assessment/Plan Pt here with today 1. BPH with urinary obstruction (N40.1: Benign prostatic hyperplasia with lower urinary tract symptoms) Pt continues Alfuzosin 10mg qd. Denies issues with stream or emptying. Typically gets up once during the night, sometimes none. Nocturia has improved since starting med. Denies side effects. Refill sent today to pharm on file. -Cont Alfuzosin as directed -Follow up in 1 year 2. History of kidney stones (Z87.442: Personal history of urinary calculi) Last stone episode was years ago. No recent imaging. Denies pain. Pt states he drinks 1 bottle of powerade and usually a few bottles of water. Recommended pt to increase fluid intake to ten to twelve 16oz bottles a day; preferably water, clear pop, and sugar free lemonade. 3. History of prostatitis (Z87.438: Personal history of other diseases of male genital organs) No recent infections. UA today neg. Asymptomatic. 4. Screening PSA (prostate specific antigen) (Z12.5: Encounter for screening for malignant neoplasm of prostate) PSA: 12/23/22 - 0.79 [place] 01/10/23: 40g, benign -Cont to monitor PSA -PSA prior to 1 year appt Follow-up With When Contact Information ALMA RAE, Isidro Alvarado, [address] [place] [address]- Additional Instructions: 1 year w/ PSA Patient Education Benign Prostatic Hyperplasia I, Melanie Waterman, personally scribed for Dr. Chapin on 07/29/2023 09:08:49. . Documentation recorded by the scribe, Melanie Waterman, accurately reflects the services(s) I performed and decisions made by me. Authenticated by Dr. Chapin on 07/29/2023 09:11:33. Problem List/Past Medical History Ongoing BPH with urinary obstruction Gout History of kidney stones History of prostatitis Hypertension Intermittent palpitations Obesity Prostatitis Recurrent UTI Right knee pain Screening PSA (prostate specific antigen) UTI (urinary tract infection) Historical No qualifying data Procedure/Surgical History Foot, Tonsillectomy. Medications alfuzosin 10 mg ER Tab, 10 mg= 1 tab(s), Oral, Daily, 11 refills allopurinol, 300 mg atorvastatin, 20 mg carvedilol 25 mg Tab losartan, 100 mg Pantoprazole [address] Tab Potassium Chloride (Eqv-K-Tab) 20 mEq oral tablet, extended release Allergies Bactrim (Skin irritation) penicillins (Difficulty breathing) Social History Tobacco Never (less than 100 in lifetime) Tobacco Use:. Never Smokeless Tobacco Use:., 01/10/2023 Family History Hypertension: Negative: Mother, Father and Sister. Immunizations Vaccine Date Status SARS-CoV-2 (COVID-19) [id number] 07/28/2022 Recorded influenza virus vaccine, inactivated 06/17/2022 Recorded SARS-CoV-2 (COVID-19) mRNA BNT-162b2 vax 06/09/2021 Recorded influenza virus vaccine, inactivated 05/29/2021 Recorded influenza virus vaccine, inactivated 05/15/2021 Recorded SARS-CoV-2 (COVID-19) mRNA BNT-162b2 vax 11/26/2020 Recorded SARS-CoV-2 (COVID-19) mRNA BNT-162b2 vax 11/05/2020 Recor (more content not included)... Normal [facility] Comment on above: Result Comment: Elec tronically Signed By: Isidro CHAPIN MD\.br\Date and Time Signed: 07/29/23 09:11 EST\.br\Electronically Co-Signed By: Melanie Waterman\.br\Date and Time Co-Signed: 07/29/23 09:09 EST CBC AUTO DIFFon 01-26-2023 BASO # 0.0 103/ul Normal 0.0-0.[address] [facility] Comment on above: Performed By: #### C MP, URIC, LIPID #### [facility] [address] [place] [address] Dr. Toma Lemon Basophils/100 WBC (Bld) 0.5 % Normal 0.2-2.[address] [facility] Comment on above: Performed By: #### C MP, URIC, LIPID #### [facility] [address] [place] [address] Dr. Toma Lemon EO # 0.1 103/ul Normal 0.0-0.[address] [facility] Comment on above: Performed By: #### C MP, URIC, LIPID #### [facility] [address] [place] [address] Dr. Toma Lemon Eosinophils/100 WBC (Bld) 1.0 % Normal 0.9-7.[address] [facility] Comment on above: Performed By: #### C MP, URIC, LIPID #### [facility] [address] [place] [address] Dr. Toma Lemon Erythrocyte distribution width (RBC) [Ratio] 12.9 % Normal 11.0-15.[address] [facility] Comment on above: Performed By: #### C MP, URIC, LIPID #### [facility] [address] [address] [address] Toma Lemon Hematocrit (Bld) [Volume fraction] 47.8 % Normal 42.0-54.[address] [facility] Comment on above: Performed By: #### C MP, URIC, LIPID #### [facility] [address] [address] Dr. Toma Lemon Hemoglobin (Bld) [Mass/Vol] 15.7 g/dL Normal 14.0-18.[address] [facility] Comment on above: Performed By: #### C MP, URIC, LIPID #### [facility] [address] [address] [address] Toma Lemon IG # 0.03 10e3/ul Normal 0.00-0.[address] [facility] Comment on above: Performed By: #### C MP, URIC, LIPID #### [facility] [address] [place] [address] Dr. Toma Lemon IG % 0.5 % Normal 0.0-0.[address] [facility] Comment on above: Performed By: #### C MP, URIC, LIPID #### [facility] [address] [address] [address] Toma Lemon LYMPH # 2.1 103/ul Normal 1.2-3.[address] [facility] Comment on above: Performed By: #### C MP, URIC, LIPID #### [facility] [address] [address] [address] Toma Lemon Lymphocytes/100 WBC (Bld) 35.1 % Normal 20.5-60.[address] [facility] Comment on above: Performed By: #### C MP, URIC, LIPID #### [facility] [address] [address] [address] Toma Lemon MANUAL DIFF REQ NO Normal [facility] Comment on above: Performed By: #### C MP, URIC, LIPID #### [facility] [address] [address] [address] Toma Lemon MCH (RBC) [Entitic mass] 29.7 pg Normal 25.9-34.[address] [facility] Comment on above: Performed By: #### C MP, URIC, LIPID #### [facility] [address] [place] [address] Dr. Toma Lemon MCHC (RBC) [Mass/Vol] 32.8 g/dL Normal 29.9-35.[address] [facility] Comment on above: Performed By: #### C MP, URIC, LIPID #### [facility] [address] [place] [address] Dr. Toma Lemon MCV (RBC) [Entitic vol] 90.5 fL Normal 80.0-94.[address] [facility] Comment on above: Performed By: #### C MP, URIC, LIPID #### [facility] [address] [place] [address] Dr. Toma Lemon MONO # 0.6 103/ul Normal 0.3-0.[address] [facility] Comment on above: Performed By: #### C MP, URIC, LIPID #### [facility] [address] [place] [address] Dr. Toma Lemon Monocytes/100 WBC (Bld) 9.7 % Normal 1.7-12.[address] [facility] Comment on above: Performed By: #### C MP, URIC, LIPID #### [facility] [address] [place] [address] Dr. Toma Lemon NEUT # 3.1 103/ul Normal 1.4-6.[address] [facility] Comment on above: Performed By: #### C MP, URIC, LIPID #### [facility] [address] [place] [address] Dr. Toma Lemon Neutrophils/100 WBC (Bld) 53.2 % Normal 43.0-75.0 [facility] Comment on above: Performed By: #### C MP, URIC, LIPID #### [facility] [address] [place] [address] Dr. Toma Lemon Platelet mean volume (Bld) [Entitic vol] 11.0 fL Normal 9.5-13.[address] [facility] Comment on above: Performed By: #### C MP, URIC, LIPID #### [facility] [address] [place], [place] [id number] Dr. Toma Lemon PLT 150 103/ul Normal 150-450 [facility] Comment on above: Performed By: #### C MP, URIC, LIPID #### [facility] [address] [address] [address] Toma Lemon RBC 5.28 106/ul Normal 4.70-6.10 [facility] Comment on above: Performed By: #### C MP, URIC, LIPID #### [facility] [address] [address] [address] Toma Lemon WBC 5.9 103/ul Normal 4.0-11.0 [facility] Comment on above: Performed By: #### C MP, URIC, LIPID #### [facility] [address] [address] [address] Toma Lemon LIPID PROFILEon 01-26-2023 CHOL-HDL RATIO NORM SEE BELOW Normal [facility] Comment on above: Result Comment: 3.3 - 4.4 LOW RISK 4.4 - 7.1 AVERAGE RISK 7.1 - 11.0 MODERATE RISK >11.0 HIGH RISK Performed By: #### C MP, URIC, LIPID #### [facility] [address] [address] [address] Toma Lemon Cholesterol [Mass/Vol] 171 mg/dL Normal <=[address] [facility] Comment on above: Performed By: #### C MP, URIC, LIPID #### [facility] [address] [address] [address] Toma Lemon Cholesterol in HDL [Mass/Vol] 36 mg/dL Critically low 40-60 [facility] Comment on above: Performed By: #### C MP, URIC, LIPID #### [facility] [address] [address] [address] Toma Lemon Cholesterol in LDL [Mass/Vol] 90.0 mg/dL Normal [facility] Comment on above: Performed By: #### C MP, URIC, LIPID #### [facility] [address] [place] [address] Dr. Toma Lemon Cholesterol.total /Cholesterol in HDL [Mass ratio] 4.8 {ratio} Normal [facility] Comment on above: Performed By: #### C MP, URIC, LIPID #### [facility] [address] [address] [address] Toma Lemon HDL NORMAL > or = 60 mg/dl - LO W CARDIOVASCULAR RISK <40 mg/dl - HIGH CARDIOVASCULAR RISK Normal [facility] Comment on above: Performed By: #### C MP, URIC, LIPID #### [facility] [address] [address] [address] Toma Lemon LDL CALC NORMAL SEE BELOW Normal [facility] Comment on above: Result Comment: <100 mg/dl OPTIMAL 100 - 129 mg/dl NEAR OR ABOVE OPTIMAL 130 - 159 mg/dl BORDERLINE HIGH 160 - 189 mg/dl HIGH >190 mg/dl VERY HIGH Performed By: #### C MP, URIC, LIPID #### [facility] [address] [address] [address] Toma Lemon Triglyceride [Mass/Vol] 225 mg/dL Critically high <=[address] [facility] Comment on above: Performed By: #### C MP, URIC, LIPID #### [facility] [address] [address] [address] Toma Lemon VLDL CALC 45.0 mg/dL Normal [facility] Comment on above: Performed By: #### C MP, URIC, LIPID #### [facility] [address] [address] [address] Toma Lemon PROF 14(COMP METB)on 023 Albumin [Mass/Vol] 4.1 g/dL Normal 3.4-5.[address] [facility] Comment on above: Performed By: #### C MP, URIC, LIPID #### [facility] [address] [address] [address] Toma Lemon Albumin/Globulin [Mass ratio] 1.4 {ratio} Normal [facility] Comment on above: Performed By: #### C MP, URIC, LIPID #### [facility] [address] [address] [address] Toma Lemon ALP [Catalytic activity/Vol] 63 U/L Normal 46-[address] [facility] Comment on above: Performed By: #### C MP, URIC, LIPID #### [facility] [address] [address] [address] Toma Lemon ALT [Catalytic activity/Vol] 38 U/L Normal 16-63 [facility] Comment on above: Performed By: #### C MP, URIC, LIPID #### [facility] [address] [address] [address] Toma Lemon Anion gap [Moles/Vol] 13.2 mmol/L Normal [facility] Comment on above: Performed By: #### C MP, URIC, LIPID #### [facility] [address] [address] [address] Toma Lemon AST [Catalytic activity/Vol] 22 U/L Normal 15-37 [facility] Comment on above: Performed By: #### C MP, URIC, LIPID #### [facility] [address] [place] [address] Dr. Toma Lemon Bilirubin [Mass/Vol] 1.1 mg/dL Critically high 0.2-1.[address] [facility] Comment on above: Performed By: #### C MP, URIC, LIPID #### [facility] [address] [address] [address] Toma Lemon Calcium [Mass/Vol] 8.8 mg/dL Normal 8.5-10.1 [facility] Comment on above: Performed By: #### C MP, URIC, LIPID #### [facility] [address] [address] [address] Toma Lemon Chloride [Moles/Vol] 102 mmol/L Normal 98-107 [facility] Comment on above: Performed By: #### C MP, URIC, LIPID #### [facility] [address] [address] [address] Toma Lemon CO2 [Moles/Vol] 29.9 mmol/L Normal 21.0-32.0 [facility] Comment on above: Performed By: #### C MP, URIC, LIPID #### [facility] [address] [address] [address] Toma Lemon Creatinine [Mass/Vol] 0.91 mg/dL Normal 0.70-1.30 [facility] Comment on above: Performed By: #### C MP, URIC, LIPID #### [facility] [address] [address] [address] Toma Lemon EGFR-AF CROATIAN >60 Normal >=60 [facility] Comment on above: Performed By: #### C MP, URIC, LIPID #### [facility] [address] [address] [address] Toma Lemon EGFR-NON AF CROATIAN >60 Normal >=[address] [facility] Comment on above: Performed By: #### C MP, URIC, LIPID #### [facility] [address] [address] [address] Toma Lemon Globulin (S) [Mass/Vol] 2.9 g/dL Normal [facility] Comment on above: Performed By: #### C MP, URIC, LIPID #### [facility] [address] [address] [address] Toma Lemon Glucose [Mass/Vol] 120 mg/dL Critically high 74-[address] [facility] Comment on above: Performed By: #### C MP, URIC, LIPID #### [facility] [address] [address] [address] Toma Lemon Potassium [Moles/Vol] 4.1 mmol/L Normal 3.5-5.[address] [facility] Comment on above: Performed By: #### C MP, URIC, LIPID #### [facility] [address] [address] [address] Toma Lemon Protein [Mass/Vol] 7.0 g/dL Normal 6.4-8.2 [facility] Comment on above: Performed By: #### C MP, URIC, LIPID #### [facility] [address] [address] [address] Toma Lemon Sodium [Moles/Vol] 141 mmol/L Normal 136-145 [facility] Comment on above: Performed By: #### C MP, URIC, LIPID #### [facility] [address] [address] [address] Toma Lemon Urea nitrogen [Mass/Vol] 11.0 mg/dL Normal 7.0-18.[address] [facility] Comment on above: Performed By: #### C MP, URIC, LIPID #### [facility] [address] [place] [address] Dr. Toma Lemon Urea nitrogen/Creatini ne [Mass ratio] 12.1 mg/mg Normal [facility] Comment on above: Performed By: #### C MP, URIC, LIPID #### [facility] [address] [place] [address] Dr. Toma Lemon URIC ACID SERUMon 01-26-2023 Urate [Mass/Vol] 4.1 mg/dL Normal 3.5-7.2 [facility] Comment on above: Performed By: #### C MP, URIC, LIPID #### [facility] [address] [place] [address] Dr. Toma Lemon Patient Educationon 01-11-20 Patient Education Urology Benign Prostatic Hyperplasia Benign prostatic hyperplasia (BPH) is an enlarged prostate gland that is caused by the normal aging process. The prostate may get bigger as a man gets older. The condition is not caused by cancer. The prostate is a walnut-sized gland that is involved in the production of semen. It is located in front of the rectum and below the bladder. The bladder stores urine. The urethra carries stored urine out of the body. An enlarged prostate can press on the urethra. This can make it harder to pass urine. The buildup of urine in the bladder can cause infection. Back pressure and infection may progress to bladder damage and kidney (renal) failure. What are the causes? This condition is part of the normal aging process. However, not all men develop problems from this condition. If the prostate enlarges away from the urethra, urine flow will not be blocked. If it enlarges toward the urethra and compresses it, there will be problems passing urine. What increases the risk? This condition is more likely to develop in men older than 50 years. What are the signs or symptoms? Symptoms of this condition include: ? Getting up often during the night to urinate. ? Needing to urinate frequently during the day. ? Difficulty starting urine flow. ? Decrease in size and strength of your urine stream. ? Leaking (dribbling) after urinating. ? Inability to pass urine. This needs immediate treatment. ? Inability to completely empty your bladder. ? Pain when you pass urine. This is more common if there is also an infection. ? Urinary tract infection (UTI). How is this diagnosed? This condition is diagnosed based on your medical history, a physical exam, and your symptoms. Tests will also be done, such as: ? A post-void bladder scan. This measures any amount of urine that may remain in your bladder after you finish urinating. ? A digital rectal exam. In a rectal exam, your health care provider checks your prostate by putting a lubricated, gloved finger into your rectum to feel the back of your prostate gland. This exam detects the size of your gland and any abnormal lumps or growths. ? An exam of your urine (urinalysis). ? A prostate specific antigen (PSA) screening. This is a blood test used to screen for prostate cancer. ? An ultrasound. This test uses sound waves to electronically produce a picture of your prostate gland. Your health care provider may refer you to a specialist in kidney and prostate diseases (urologist). How is this treated? Once symptoms begin, your health care provider will monitor your condition (active surveillance or watchful waiting). Treatment for this condition will depend on the severity of your condition. Treatment may include: ? Observation and yearly exams. This may be the only treatment needed if your condition and symptoms are mild. ? Medicines to relieve your symptoms, including: ? Medicines to shrink the prostate. ? Medicines to relax the muscle of the prostate. ? Surgery in severe cases. Surgery may include: ? Prostatectomy. In this procedure, the prostate tissue is removed completely through an open incision or with a laparoscope or robotics. ? Transurethral resection of the prostate (TURP). In this procedure, a tool is inserted through the opening at the tip of the penis (urethra). It is used to cut away tissue of the inner core of the prostate. The pieces are removed through the same opening of the penis. This removes the blockage. ? Transurethral incision (TUIP). In this procedure, small cuts are made in the prostate. This lessens the prostate's pressure on the urethra. ? Transurethral microwave thermotherapy (TUMT). This procedure uses microwaves to create heat. The heat destroys and removes a small amount of prostate tissue. ? Transurethral needle ablation (TUNA). This procedure uses radio frequencies to destroy and remove a small amount of prostate tissue. ? Interstitial laser coagulation (ILC). This procedure uses a laser to destroy and remove a small amount of prostate tissue. ? Transurethral electrovaporization (TUVP). This procedure uses electrodes to destroy and remove a small amount of prostate tissue. ? Prostatic urethral lift. This procedure inserts an implant to push the lobes of the prostate away from the urethra. Follow these instructions at home: ? Take yfco-azl-krutdcn and prescription medicines only as told by your health care provider. ? Monitor your symptoms for any changes. Contact your health care provider with any changes. ? Avoid drinking large amounts of liquid before going to bed or out in public. ? Avoid or reduce how much caffeine or alcohol you drink. ? Give yourself time when you urinate. ? Keep all follow-up visits. This is important. Contact a health care provider if: ? You have unexplained back pain. ? Your symptoms do not get better with treatment. ? You develop side effects from the medicine (more content not included)... Normal [facility] Progress Note-Nurseon 2022 Progress Note-Nurse SUSANNE GARCIA :1955 Visit Date:01/10/2023 Ambulatory Visit Instructions Your Diagnosis BPH with urinary obstruction BMI 36.0-36.9,adult History of kidney stones History of prostatitis Tests Performed Urnls Dip Stick Auto w/o Microscopy POC 04550 Your Care Team Attending Physician - Isidro CHAPIN MD Primary Care Physician - SHAIKH DE LA VEGA This Is Your Medications List alfuzosin (alfuzosin 10 mg ER Tab) Contact prescribing physician if questions or concerns allopurinol amlodipine (amLODIPine 5 mg Tab) atenolol atorvastatin famotidine (famotidine 40 mg Tab) losartan [Image Removed: STOP]Stop taking these medications sulfamethoxazole-trimet hoprim (Bactrim D.S. 800 mg-160 mg Tab) Procedures Performed Foot, Tonsillectomy. Discharge Vitals Heart Rate (Peripheral) 103 Blood Pressure 145/80 Height 184 cm Height 72 in Weight 122 kg Weight 268.4 lb BMI 36.03 What to do next Scheduled Follow-Up Appointments Tuesday 8:30 AM EST With: ALMA RAE, Isidro Alvarado Where: [facility] Leisa Normal [facility] Urology Office/Clinic Noteon 01-10-2023 Urology Office/Clinic Note Chief Complaint 2 mo fu HPI Staff 2m [place] & PSA due to Prostatitis & BPH. Additional DX: Hx of Kidney Stones (years ago per last encounter) *Was Tx'd with Bactrim DS BID x3wks & started on Alfuzosin 10mg ER QD at last encounter. PSA done 12/23/22- 0.79 Dysuria: no Incomplete bladder emptying: no Hematuria: no Frequency: no Urgency:no Nocturia: 1x night Stream: good stream Leaking: no Post void dripping: no Wearing pads/ Depends: no Urge incontinence: no Stress incontinence: no Incontinence without Sensory Awareness: no Abdominal pain: no Flank pain: no Sexual complaints: no History of Present Illness Tests Reviewed: Reviewed UA. I have reviewed and verified the staff HPI to be accurate for this encounter. I have reviewed the previous health record information and history for this patient from Dr. Chapin There have been no associated fever, chills, flank pain, or blood in the urine. Denies any urinary infections since last encounter. Review of Systems PHQ Score Initial Depression Screen Score: 0 ROS - Provider Constitutional: denies weight loss, denies hot flashes. Eyes: denies eye problems. Gastrointestinal: denies nausea, denies vomiting. Cardiovascular: denies chest pain or angina. Integumentary: no dryness Musculoskeletal: denies musculoskeletal symptoms. ENMT: denies otolaryngeal symptoms. Respiratory: no shortness of breath. Heme/Lymph: denies easy bleeding tendency, denies easy bruising tendency. Psychiatric: no confusion, no anxiety. Genitourinary: denies dysuria, denies hematuria, denies discharge, denies urinary frequency, denies urinary hesitancy, mild nocturia, denies incontinence, denies genital sores, denies decreased libido, and denies erectile dysfunction. Physical Exam Vitals & Measurements HR: 103(Peripheral) BP: 145/80 HT: 72 in HT: 184 cm WT: 122 kg WT: 268.4 lb BMI: 36.03 General Appearance: alert, no distress, well nourished, well developed male. Flank Pain: none. Bladder: nonpalpable. Prostate: normal prostate, estimated weight 40 gms, no hard nodule observed. Assessment/Plan 1. BPH with urinary obstruction (N40.1: Benign prostatic hyperplasia with lower urinary tract symptoms) Good stream, feels empty. UA done today is negative for blood and infection. PSA was done 12/23/22 0.79. Patient was started on Alfuzosin 10mg therapy. It is working well for him. All questions and concerns were discussed and answered with patient. Will continue to monitor. 2. BMI 36.0-36.9,adult (Z68.36: Body mass index [BMI] 36.0-36.9, adult) 3. History of kidney stones (Z87.442: Personal history of urinary calculi) Patient reports he had stones many years ago. 4. History of prostatitis (Z87.438: Personal history of other diseases of male genital organs) Was treated with abx x 3 weeks and then had PSA level done. I have reviewed the previous health history and record for this patient with Dr. Chapin. f/u in 6 months Follow-up With When Contact Information ALMA RAE, JARRED Almazan In 6 months [facility] [address], [place] [address]- [phone] Additional Instructions: f/u in 6 months Patient Education Benign Prostatic Hyperplasia IAshely, personally scribed for Dr. Chapin on 01/10/2023 10:40:58. . Documentation recorded by the scribe, jessica Owens, accurately reflects the services(s) I performed and decisions made by me. Authenticated by Dr. Chapin on 01/10/2023 10:42:09. Problem List/Past Medical History Ongoing BPH with urinary obstruction Gout History of kidney stones Hypertension Intermittent palpitations Obesity Prostatitis Recurrent UTI Right knee pain UTI (urinary tract infection) Historical No qualifying data Procedure/Surgical History Foot, Tonsillectomy. Medications alfuzosin 10 mg ER Tab, 10 mg= 1 tab(s), Oral, Daily, 11 refills allopurinol, 300 mg amLODIPine 5 mg Tab atenolol, 100 mg, Not taking atorvastatin, 20 mg famotidine 40 mg Tab losartan, 100 mg Allergies penicillins (Difficulty breathing) Social History Tobacco Never (less than 100 in lifetime) Tobacco Use:. Never Smokeless Tobacco Use:., 01/10/2023 Family History Hypertension: Negative: Mother, Father and Sister. Immunizations Vaccine Date Status SARS-CoV-2 (COVID-19) mRNAMUL.ORD![id number] 07/28/2022 Recorded influenza virus vaccine, inactivated 06/17/2022 Recorded SARS-CoV-2 (COVID-19) mRNA BNT-162b2 vax 06/09/2021 Recorded influenza virus vaccine, inactivated 05/29/2021 Recorded influenza virus vaccine, inactivated 05/15/2021 Recorded SARS-CoV-2 (COVID-19) mRNA BNT-162b2 vax 11/26/2020 Recorded SARS-CoV-2 (COVID-19) mRNA BNT-162b2 vax 11/05/2020 Recorded influenza virus vaccine, inactivated 06/27/2019 Recorded Lab Results Test Name Test Result Date/Time PSA, External 0.79 ng/mL 12/23/2022 10:06 EDT Ambulatory Point of Care Re (more content not included)... [facility] Comment on above: Result Comment: Elec tronically Signed By: Isidro CHAPIN MD\.br\Date and Time Signed: 01/10/23 10:42 EDT\.br\Electronically Co-Signed By: Ashely Owens\.br\Date and Time Co-Signed: 01/10/23 10:41 EDT Lab Reportson 12-27-2022 Lab Reports [id number] D:127 [facility] Formson 11-02-2022 Forms [id number] D:127 [facility] Physician Referralon 023 Physician Referral [id number] D:127 [facility] Screenson 11-02-2022 Screens [id number] D:127 [facility] Patient Educationon 10-30-19 Patient Education Infectious Disease Prostatitis Prostatitis is swelling or inflammation of the prostate gland. The prostate is a walnut-sized gland that is involved in the production of semen. It is located below a man's bladder, in front of the rectum. There are four types of prostatitis: ? Chronic nonbacterial prostatitis. This is the most common type of prostatitis. It may be associated with a viral infection or autoimmune disorder. ? Acute bacterial prostatitis. This is the least common type of prostatitis. It starts quickly and is usually associated with a bladder infection, high fever, and shaking chills. It can occur at any age. ? Chronic bacterial prostatitis. This type usually results from acute bacterial prostatitis that happens repeatedly (is recurrent) or has not been treated properly. It can occur in men of any age but is most common among middle-aged men whose prostate has begun to get larger. The symptoms are not as severe as symptoms caused by acute bacterial prostatitis. ? Prostatodynia or chronic pelvic pain syndrome (CPPS). This type is also called pelvic floor disorder. It is associated with increased muscular tone in the pelvis surrounding the prostate. What are the causes? Bacterial prostatitis is caused by infection from bacteria. Chronic nonbacterial prostatitis may be caused by: ? Urinary tract infections (UTIs). ? Nerve damage. ? A response by the body?s disease-fighting system (autoimmune response). ? Chemicals in the urine. The causes of the other types of prostatitis are usually not known. What are the signs or symptoms? Symptoms of this condition vary depending upon the type of prostatitis. If you have acute bacterial prostatitis, you may experience: ? Urinary symptoms, such as: ? Painful urination. ? Burning during urination. ? Frequent and sudden urges to urinate. ? Inability to start urinating. ? A weak or interrupted stream of urine. ? Vomiting. ? Nausea. ? Fever. ? Chills. ? Inability to empty the bladder completely. ? Pain in the: ? Muscles or joints. ? Lower back. ? Lower abdomen. If you have any of the other types of prostatitis, you may experience: ? Urinary symptoms, such as: ? Sudden urges to urinate. ? Frequent urination. ? Difficulty starting urination. ? Weak urine stream. ? Dribbling after urination. ? Discharge from the urethra. The urethra is a tube that opens at the end of the penis. ? Pain in the: ? Testicles. ? Penis or tip of the penis. ? Rectum. ? Area in front of the rectum and below the scrotum (perineum). ? Problems with sexual function. ? Painful ejaculation. ? Bloody semen. How is this diagnosed? This condition may be diagnosed based on: ? A physical and medical exam. ? Your symptoms. ? A urine test to check for bacteria. ? An exam in which a health care provider uses a finger to feel the prostate (digital rectal exam). ? A test of a sample of semen. ? Blood tests. ? Ultrasound. ? Removal of prostate tissue to be examined under a microscope (biopsy). ? Tests to check how your body handles urine (urodynamic tests). ? A test to look inside your bladder or urethra (cystoscopy). How is this treated? Treatment for this condition depends on the type of prostatitis. Treatment may involve: ? Medicines to relieve pain or inflammation. ? Medicines to help relax your muscles. ? Physical therapy. ? Heat therapy. ? Techniques to help you control certain body functions (biofeedback). ? Relaxation exercises. ? Antibiotic medicine, if your condition is caused by bacteria. ? Warm water baths (sitz baths). Sitz baths help with relaxing your pelvic floor muscles, which helps to relieve pressure on the prostate. Follow these instructions at home: ? Take mdlw-oae-lrpquis and prescription medicines only as told by your health care provider. ? If you were prescribed an antibiotic, take it as told by your health care provider. Do not stop taking the antibiotic even if you start to feel better. ? If physical therapy, biofeedback, or relaxation exercises were prescribed, do exercises as instructed. ? Take sitz baths as directed by your health care provider. For a sitz bath, sit in warm water that is deep enough to cover your hips and buttocks. ? Keep all follow-up visits as told by your health care provider. This is important. Contact a health care provider if: ? Your symptoms get worse. ? You have a fever. Get help right away if: ? You have chills. ? You feel nauseous. ? You vomit. ? You feel light-headed or feel like you are going to faint. ? You are unable to urinate. ? You have blood or blood clots in your urine. This information is not intended to replace advice given to you by your health care provider. Make sure you discuss any questions you have with your health care provider. Document Released: 08/12/2001 Document Revised: 10/28/2018 Docum (more content not included)... Normal [facility] CULTURE URINEon 09-18-2022 CULTURE URINE Isolate 1 Escherichia coli >100,000 cfu/ml of ORGANISM 1 Escherichia coli ANTIBIOTIC M.I.C RX STATUS Ampicillin >=32 R F Ampicillin/Sulbactam 16 I F Piperacillin/Tazobactam <=4 S F Cefazolin <=4 S F Ceftazidime <=1 S F Ceftriaxone <=1 S F Ertapenem <=0.5 S F Imipenem <=0.25 S F Amikacin 4 S F Gentamicin <=1 S F Tobramycin <=1 S F Ciprofloxacin <=0.25 S F Levofloxacin <=0.12 S F Nitrofurantoin <=16 S F Trimethoprim/Sulfametho xazole <=20 S F Normal [facility] Comment on above: Performed By: #### U RCX #### [facility] [address] [place] [address] Dr. Toma Lemon UA RANDOM W/MICROSCOPICon BACTERIA SMALL Abnormal NONE SEEN [facility] Comment on above: Performed By: #### C MP, URIC, LIPID #### [facility] [address] [place] [address] Dr. Toma Lemon Bilirubin Ql (U) SMALL Abnormal NEGATIVE [facility] Comment on above: Performed By: #### C MP, URIC, LIPID #### [facility] [address] [address] [address] Toma Lemon CAST NONE SEEN Normal NONE SEEN [facility] Comment on above: Performed By: #### C MP, URIC, LIPID #### [facility] [address] [place] [address] Dr. Toma Lemon Clarity (U) CLEAR Normal CLEAR [facility] Comment on above: Performed By: #### C MP, URIC, LIPID #### [facility] [address] [address] [address] Toma Lemon Color (U) YELLOW Normal YELLOW [facility] Comment on above: Performed By: #### C MP, URIC, LIPID #### [facility] [address] [place] [address] Dr. Toma Lemon Crystals LM Nom (Urine sed) NONE SEEN Normal NONE SEEN [facility] Comment on above: Performed By: #### C MP, URIC, LIPID #### [facility] [address] [address] [address] Toma Lemon Epithelial cells LM Ql (Urine sed) FEW Abnormal NONE SEEN /RARE [facility] Comment on above: Performed By: #### C MP, URIC, LIPID #### [facility] [address] [place] [address] Dr. Toma Lemon Glucose Ql (U) Negative Normal NEGATIVE [facility] Comment on above: Performed By: #### C MP, URIC, LIPID #### [facility] [address] [place] [address] Dr. Toma Lemon Hemoglobin Ql (U) TRACE-INTACT Abnormal NEGATIVE [facility] Comment on above: Performed By: #### C MP, URIC, LIPID #### [facility] [address] [place] [address] Dr. Toma Lemon Ketones Ql (U) Negative Normal NEGATIVE [facility] Comment on above: Performed By: #### C MP, URIC, LIPID #### [facility] [address] [place] [address] Dr. Toma Lemon LEUKOCYTES SMALL Abnormal NEGATIVE [facility] Comment on above: Performed By: #### C MP, URIC, LIPID #### [facility] [address] [address] [address] Toma Lemon MUCOUS TRACE Abnormal NONE SEEN [facility] Comment on above: Performed By: #### C MP, URIC, LIPID #### [facility] [address] [place] [address] Dr. Toma Lemon Nitrite Ql (U) Negative Normal NEGATIVE [facility] Comment on above: Performed By: #### C MP, URIC, LIPID #### [facility] [address] [address] [address] Toma Lemon pH (U) 6.0 [pH] Normal 5-9 [facility] Comment on above: Performed By: #### C MP, URIC, LIPID #### [facility] [address] [address] [address] Toma Lemon RBC 0-2 Normal 0-2 [facility] Comment on above: Performed By: #### C MP, URIC, LIPID #### [facility] [address] [address] [address] Toma Lemon SPEC GRAVITY 1.025 Normal 1.005-<=1.025 [facility] Comment on above: Performed By: #### C MP, URIC, LIPID #### [facility] [address] [address] [address] Toma Lemon UA PROTEIN TRACE Normal NEGATIVE/ TRACE [facility] Comment on above: Performed By: #### C MP, URIC, LIPID #### [facility] [address] [address] [address] Toma Lemon Urobilinogen Qn (U) 0.2 {Beverly'U}/dL Normal 0.2 - 1.0 [facility] Comment on above: Performed By: #### C MP, URIC, LIPID #### [facility] [address] [address] [address] Toma Lemon WBC 5-10 Abnormal NONE SEEN [facility] Comment on above: Performed By: #### C MP, URIC, LIPID #### [facility] [address] [address] [address] Toma Lemon CULTURE URINEon 09-11-2022 CULTURE URINE Isolate 1 Escherichia coli >100,000 cfu/mL of ORGANISM 1 Escherichia coli ANTIBIOTIC M.I.C RX STATUS Ampicillin >=32 R F Ampicillin/Sulbactam >=32 R F Piperacillin/Tazobactam 16 S F Cefazolin 8 R F Ceftazidime 2 R F Ceftriaxone 4 R F Ertapenem <=0.5 S F Imipenem 1 S F Amikacin 8 S F Gentamicin 4 S F Tobramycin 2 S F Ciprofloxacin <=0.25 S F Levofloxacin <=0.12 S F Nitrofurantoin <=16 S F Trimethoprim/Sulfametho xazole <=20 S F Normal [facility] Comment on above: Performed By: #### C MP, URIC, LIPID #### [facility] [address] [address] [address] Toma Lemon UA RANDOM W/MICROSCOPICon BACTERIA LARGE Abnormal NONE SEEN [facility] Comment on above: Performed By: #### U AMIC #### [facility] [address] [address] [address] Toma Lemon Bilirubin Ql (U) Negative Normal NEGATIVE [facility] Comment on above: Performed By: #### U AMIC #### [facility] [address] [place] [address] Dr. Toma Lemon CAST NONE SEEN Normal NONE SEEN [facility] Comment on above: Performed By: #### U AMIC #### [facility] [address] [address] [address] Toma Lemon Clarity (U) CLOUDY Abnormal CLEAR [facility] Comment on above: Performed By: #### U AMIC #### [facility] [address] [address] [address] Toma Lemon Color (U) LT. YELLOW Normal YELLOW [facility] Comment on above: Performed By: #### U AMIC #### [facility] [address] [address] [address] Toma Lemon Crystals LM Nom (Urine sed) NONE SEEN Normal NONE SEEN [facility] Comment on above: Performed By: #### U AMIC #### [facility] [address] [address] [address] Toma Lemon Epithelial cells LM Ql (Urine sed) FEW Abnormal NONE SEEN /RARE [facility] Comment on above: Performed By: #### U AMIC #### [facility] [address] [address] [address] Toma Lemon Glucose Ql (U) Negative Normal NEGATIVE [facility] Comment on above: Performed By: #### U AMIC #### [facility] [address] [address] [address] Toma Lemon Hemoglobin Ql (U) LARGE Abnormal NEGATIVE [facility] Comment on above: Performed By: #### U AMIC #### [facility] [address] [address] [address] Toma Lemon Ketones Ql (U) Negative Normal NEGATIVE [facility] Comment on above: Performed By: #### U AMIC #### [facility] [address] [address] [address] Toma Lemon LEUKOCYTES LARGE Abnormal NEGATIVE [facility] Comment on above: Performed By: #### U AMIC #### [facility] [address] [address] [address] Toma Lemon MUCOUS NONE SEEN Normal NONE SEEN [facility] Comment on above: Performed By: #### U AMIC #### [facility] [address] [place] [address] Dr. Toma Lemon Nitrite Ql (U) Negative Normal NEGATIVE [facility] Comment on above: Performed By: #### U AMIC #### [facility] [address] [place] [address] Dr. Toma Lemon pH (U) 7.0 [pH] Normal 5-9 [facility] Comment on above: Performed By: #### U AMIC #### [facility] [address] [place] [address] Dr. Toma Lemon RBC 20-50 Abnormal 0-2 [facility] Comment on above: Performed By: #### U AMIC #### [facility] [address] [place] [address] Dr. Toma Lemon SPEC GRAVITY 1.015 Normal 1.005-<=1.025 [facility] Comment on above: Performed By: #### U AMIC #### [facility] [address] [place] [address] Dr. Toma Lemon UA PROTEIN TRACE Normal NEGATIVE/ TRACE [facility] Comment on above: Performed By: #### U AMIC #### [facility] [address] [place] [address] Dr. Toma Lemon Urobilinogen Qn (U) 1.0 {Beverly'U}/dL Normal 0.2 - 1.[address] [facility] Comment on above: Performed By: #### U AMIC #### [facility] [address] [address] [address] Toma Lemon WBC (U) [#/Vol] /uL Abnormal NONE SEEN [facility] Comment on above: Performed By: #### U AMIC #### [facility] [address] [address] [address] Toma Lemon LIPID PROFILEon 05-31-2022 CHOL-HDL RATIO NORM SEE BELOW Normal [facility] Comment on above: Result Comment: 3.3 - 4.4 LOW RISK 4.4 - 7.1 AVERAGE RISK 7.1 - 11.0 MODERATE RISK >11.0 HIGH RISK Performed By: #### C MP, URIC, LIPID #### [facility] [address] [address] [address] Toma Lemon Cholesterol [Mass/Vol] 184 mg/dL Normal <=[address] [facility] Comment on above: Performed By: #### C MP, URIC, LIPID #### [facility] [address] [address] [address] Toma Lemon Cholesterol in HDL [Mass/Vol] 40 mg/dL Normal 40-[address] [facility] Comment on above: Performed By: #### C MP, URIC, LIPID #### [facility] [address] [address] [address] Toma Lemon Cholesterol in LDL [Mass/Vol] 108.2 mg/dL Normal [facility] Comment on above: Performed By: #### C MP, URIC, LIPID #### [facility] [address] [address] [address] Toma Lemon Cholesterol.total /Cholesterol in HDL [Mass ratio] 4.6 {ratio} Normal [facility] Comment on above: Performed By: #### C MP, URIC, LIPID #### [facility] [address] [address] [address] Toma Lemon HDL NORMAL > or = 60 mg/dl - LO W CARDIOVASCULAR RISK <40 mg/dl - HIGH CARDIOVASCULAR RISK Normal [facility] Comment on above: Performed By: #### C MP, URIC, LIPID #### [facility] [address] [address] [address] Toma Lemon LDL CALC NORMAL SEE BELOW Normal [facility] Comment on above: Result Comment: <100 mg/dl OPTIMAL 100 - 129 mg/dl NEAR OR ABOVE OPTIMAL 130 - 159 mg/dl BORDERLINE HIGH 160 - 189 mg/dl HIGH >190 mg/dl VERY HIGH Performed By: #### C MP, URIC, LIPID #### [facility] [address] [address] [address] Toma Lemon Triglyceride [Mass/Vol] 179 mg/dL Critically high <=150 [facility] Comment on above: Performed By: #### C MP, URIC, LIPID #### [facility] [address] [address] [address] Toma Lemon VLDL CALC 35.8 mg/dL Normal [facility] Comment on above: Performed By: #### C MP, URIC, LIPID #### [facility] [address] [place] [address] Dr. Toma Lemon PROF CHEM 8 (BAS METB)on Anion gap [Moles/Vol] 12.8 mmol/L Normal [facility] Comment on above: Performed By: #### C MP, URIC, LIPID #### [facility] [address] [place] [address] Dr. Toma Lemon Calcium [Mass/Vol] 9.7 mg/dL Normal 8.5-10.1 [facility] Comment on above: Performed By: #### C MP, URIC, LIPID #### [facility] [address] [address] [address] Toma Lemon Chloride [Moles/Vol] 98 mmol/L Normal 98-107 [facility] Comment on above: Performed By: #### C MP, URIC, LIPID #### [facility] [address] [address] [address] Toma Lemon CO2 [Moles/Vol] 30.8 mmol/L Normal 21.0-32.0 [facility] Comment on above: Performed By: #### C MP, URIC, LIPID #### [facility] [address] [address] [address] Toma Lemon Creatinine [Mass/Vol] 0.86 mg/dL Normal 0.70-1.[address] [facility] Comment on above: Performed By: #### C MP, URIC, LIPID #### [facility] [address] [address] [address] Toma Lemon EGFR-AF CROATIAN >60 Normal >=60 [facility] Comment on above: Performed By: #### C MP, URIC, LIPID #### [facility] [address] [address] [address] Toma Lemon EGFR-NON AF CROATIAN >60 Normal >=[address] [facility] Comment on above: Performed By: #### C MP, URIC, LIPID #### [facility] [address] [address] [address] Toma Lemon Glucose [Mass/Vol] 122 mg/dL Critically high 74-[address] [facility] Comment on above: Performed By: #### C MP, URIC, LIPID #### [facility] [address] [address] [address] Toma Lemon Potassium [Moles/Vol] 3.6 mmol/L Normal 3.5-5.[address] [facility] Comment on above: Performed By: #### C MP, URIC, LIPID #### [facility] [address] [address] [address] Toma Lemon Sodium [Moles/Vol] 138 mmol/L Normal 136-145 [facility] Comment on above: Performed By: #### C MP, URIC, LIPID #### [facility] [address] [address] [address] Toma Lemon Urea nitrogen [Mass/Vol] 16.0 mg/dL Normal 7.0-18.[address] [facility] Comment on above: Performed By: #### C MP, URIC, LIPID #### [facility] [address] [address] [address] Toma Lemon Urea nitrogen/Creatini ne [Mass ratio] 18.6 mg/mg Normal [facility] Comment on above: Performed By: #### C MP, URIC, LIPID #### [facility] [address] [place], [place] [address] Dr. Toma Lemon URIC ACID SERUMon 05-31-2022 Urate [Mass/Vol] 7.4 mg/dL Critically high 3.5-7.[address] [facility] Comment on above: Performed By: #### C MP, URIC, LIPID #### [facility] [id number] Toma Lemon SARS-CoV-2 (COVID-19) RNA NA A+probe Ql (Resp)on 05-14-2022 SARS-CoV-2 (COVID-19) RNA ALEXX+probe Ql (Unsp spec) Positive [employer] Other Cardiac Stress Teston 2021 Cardiac Stress Test [address], [address] [facility], [place] [address] Exercise Stress Test Patient Name: SUSANNE [id number] Study Date: 04/21/2022 Reading Physician: [id number] Emily Skaggs MD MRN/PID: [id number] Supervising [id number] Kar Sanchez MD, Physician: [facility] Accession/Order#: [id number] Referring Physician: Lazaro URIBE Date of : 1955 PCP: Gender: M Fellow: Height: 182.88 cm Nurse: Clarissa Stevenson RN Weight: 120.66 kg [employer]en Suiting Shrinker: JAY BSA: 2.40 m2 Technologist: BMI: 36.08 kg/m2 Additional Staff: Age: 67 years cc report to: Patient Location: cc report to: [id number] Uribe MD Study Type: Cardiac Stress Test Diagnosis/ICD: R07.89-Other chest pain; I49.3-Ventricular premature depolarization Indication: Chest Pain Atypical Procedure/CPT: Stress Test Interpretation-[id number]; Stress Test Supervision-[id number] Falls Risk: Low: Patient has low risk for sustaining a fall; environmental safety interventions in place. Study Details: Correct procedure and correct patient verified verbally. Patient Performance: The peak heart rate achieved was 106 bpm, which was 69 % of the age predicted target heart rate of 154 bpm. The resting blood pressure was 142/82 mmHg with a heart rate of 60 bpm. The standing blood pressure was 136/78 mmHg with a heart rate of 67 bpm. The patient's functional capacity was average. The blood pressure response was normal. The test was terminated due to: leg fatigue and musculoskeletal weakness. Mild sinus tachycardia. Baseline ECG: Normal sinus rhythm. Stress Stage Data: + +---+ ------+-------+ HR Sys BP Esqueda BP + +---+ ------+-------+ Baseline Resting 60 142 82 + +---+ ------+-------+ Baseline Standing 67 136 78 + +---+ ------+-------+ Stage I 87 158 82 + +---+ ------+-------+ Stage II 95 166 78 + +---+ ------+-------+ Stage III 106 174 78 + +---+ ------+-------+ Recovery ECG: The heart rate recovery was normal. + +---+----- -+-------+ HR Sys BP Esqueda BP + +---+----- -+-------+ Recovery I 105 168 80 + +---+----- -+-------+ Recovery II 98 166 78 + +---+----- -+-------+ Recovery III 77 142 78 + +---+----- -+-------+ Recovery IV 75 130 78 + +---+----- -+-------+ Summary: 1. Submaximal graded exercise test without diagnostic ST-T changes for ischemia. 2. No provoked chest pain. 3. Submaximal exercise stress test with patient able to achieve only 68% of maximum predicted heart rate. 4. Blunted heart rate to response to exercise. 5. Normal heart rate recovery phase. 6. Few PVCs noted during exercise. 7. The adequate level of stress was achieved. [id number] Emily Skaggs MD Electronically signed on 04/21/2022 at 6:01:26 PM Final Normal [facility] Cardiac Stress Test -[facility] 600 DO Work Phone: PROF CHEM 8 ([facility])on Anion gap [Moles/Vol] 12.3 mmol/L Normal [facility] Comment on above: Performed By: #### B MP #### [facility] [address] [address] [address] Toma Lemon Calcium [Mass/Vol] 9.1 mg/dL Normal 8.5-10.1 [facility] Comment on above: Performed By: #### B MP #### [facility] [address] [address] [address] Toma Lemon Chloride [Moles/Vol] 100 mmol/L Normal 98-107 [facility] Comment on above: Performed By: #### B MP #### [facility] [address] [address] [address] Toma Lemon CO2 [Moles/Vol] 32.3 mmol/L Critically high 21.0-32.0 [facility] Comment on above: Performed By: #### B MP #### [facility] [address] [address] [address] Toma Lemon Creatinine [Mass/Vol] 0.87 mg/dL Normal 0.70-1.[address] [facility] Comment on above: Performed By: #### B MP #### [facility] [address] [address] [address] Toma Lemon EGFR-AF CROATIAN >60 Normal >=60 [facility] Comment on above: Performed By: #### B MP #### [facility] [address] [address] [address] Toma Lemon EGFR-NON AF CROATIAN >60 Normal >=[address] [facility] Comment on above: Performed By: #### B MP #### [facility] [address] [address] [address] Toma Lemon Glucose [Mass/Vol] 116 mg/dL Critically high 74-[address] [facility] Comment on above: Performed By: #### B MP #### [facility] [address] [address] [address] Toma Lemon Potassium [Moles/Vol] 3.6 mmol/L Normal 3.5-5.[address] [facility] Comment on above: Performed By: #### B MP #### [facility] [address] [address] [address] Toma Lemon Sodium [Moles/Vol] 141 mmol/L Normal 136-145 [facility] Comment on above: Performed By: #### B MP #### [facility] [address] [address] [address] Toma Lemon Urea nitrogen [Mass/Vol] 10.0 mg/dL Normal 7.0-18.0 [facility] Comment on above: Performed By: #### B MP #### [facility] [address] [address] [address] Toma Lemon Urea nitrogen/Creatini ne [Mass ratio] 11.5 mg/mg Normal [facility] Comment on above: Performed By: #### B MP #### [facility] [address] [address] [address] Toma Lemon Office Visit (Cardiology)on 03-29-2022 Follow-up visit Diagnoses/Problems Assessed PVC (premature ventricular contraction) (427.69) (I49.3) Burning chest pain (786.59) (R07.89) Hypertension (401.9) (I10) Hyperlipidemia (272.4) (E78.5) Class 2 obesity with body mass index (BMI) of 36.0 to 36.9 in adult (278.00,V85.36) (E66.9,Z68.36) Never a smoker Orders Burning chest pain, PVC (premature ventricular contraction) Cardiac Stress Test; Status:Hold For - Scheduling; Requested for:29Mar2022; Class 2 obesity with body mass index (BMI) of 36.0 to 36.9 in adult Healthy Weight Tips; Status:Complete; Done: 29Mar2022 Some eating tips that can help you lose weight.; Status:Complete; Done: 29Mar2022 PVC (premature ventricular contraction) IO EKG Electrocardiogram- 12 Lead; Status:Complete; Done: 29Mar2022 SocHx: Never a smoker Tobacco Use Screening; Status:Complete; Done: 29Mar2022 Patient Instructions Please bring all medicines, vitamins, and herbal supplements with you when you come to the office. Prescriptions will not be filled unless you are compliant with your follow up appointments or have a follow up appointment scheduled as per instruction of your physician. Refills should be requested at the time of your visit Follow up as needed only I, Sandra Wilkins LPN, am scribing for and in the presence of, Dr. Aime Uribe MD Chief Complaint SUSANNE GARCIA is being seen for a cardiovascular evaluation . FAWWAD ABN HM SVT FREQ ECTOPY. History of Present Illness Patient is seen saltation at the request of his primary care physician for arrhythmia complaints. Recently had some palpitations and a Holter monitor was done demonstrating PACs PVCs and a 5 beat run of SVT and is seen in this regard. We discussed in tremendous detail and I believe the arrhythmia to be benign. He has had no syncope near syncope or other arrhythmia symptoms and he has no manifestations of heart failure. The Holter monitor was benign. He is treated for hyperlipidemia and hypertension. Treatment appears good. I suggested to him that hypokalemia could be increasing ventricular ectopy and he acknowledges that recently was told by his primary care that he was hypokalemic and they are treating it with supplement. I encouraged him to pursue that matter with primary care and also suggested that in the future he may have to abandon the chlorthalidone therapy in favor of a different blood pressure medicine if potassium continues to be a problem. Interestingly, though, the patient states he has chest burning. Further discussion and review with him reveals that it occurs with aerobic workload, typically after an evening meal when he and his walk 2 or 3 miles at a brisk pace. I advised him that this actually sounds like angina and is more concerning than the arrhythmia complaint and because of this I recommended treadmill testing. Follow-up will be arranged after stress test is done and I encouraged him to seek emergency care if he had unrelenting burning and go to the emergency room if such symptoms arise. Surgical History Problems Denied: History of Colonoscopy History of Foot surgery History of Tonsillectomy Past Medical History Problems History of Encounter for immunization (V03.89) (Z23) Resolved Date: 29 Mar 2022 Current Meds Medication NameInstruction Atenolol-Chlorthalidone 100-25 MG Oral TabletTAKE 1 TABLET DAILY. Atorvastatin Calcium 20 MG Oral TabletTAKE 1 TABLET AT BEDTIME. Potassium Chloride 20 MEQ TBCRTAKE 1 TABLET DAILY. Allergies Medication Penicillins Recorded By: Aysha Jaurez; 03/29/2022 8:05:41 AM Family History Father Family history of cardiomegaly (V17.49) (Z82.49) Social History Problems Caffeine use (V49.89) (Z78.9) 1 SODA DAILY Never a smoker No alcohol use No illicit drug use Review of Systems Constitutional: not feeling tired. Eyes: no eyesight problems. ENT: no hearing loss and no nosebleeds. Cardiovascular: no intermittent leg claudication and as noted in HPI. Respiratory: no chronic cough and no shortness of breath. Gastrointestinal: no change in bowel habits and no blood in stools. Genitourinary: no urinary frequency and no hematuria. Skin: no skin rashes. Neurological: no seizures and no frequent falls. Psychiatric: no depression and not suicidal. All other systems have been reviewed and are negative for complaint. Vitals Vital Signs Recorded: 29Mar2022 08:12AMRecorded: [id number] 08:09AM Ibfakpmb950, LUE, Iyhbyzg562, RUE, Sitting Xtialdeok79, LUE, Yafzxqy01, RUE, Sitting Heart Rate67, Apical Height6 ft Mkxycr188 lb 12.8 oz BMI Osjrmzoruz22.18 kg/m2 BSA Calculated2.41 Tobacco Useb) No PHQ-2 #1. Over the last 2 weeks have you felt down, depressed or hopeless? (If yes, answer PHQ-9 below)No PHQ-2 #2. Over the last 2 weeks have you felt little interest or pleasure in doing things? (If yes, answer PHQ-9 below)No Falls Screening (Age 18+)a) No falls within the last year EKG done in office today. Phy (more content not included)... Normal [facility] Tobacco Screening.on 022 Adult depression screening assessment No [facility] 250 DO Work Phone: Fall risk assessment a) No falls within the last year [facility] 250 DO Work Phone: Tobacco use status CPHS b) No [facility] 250 DO Work Phone: CBC AUTO DIFFon 02-09-2022 BASO # 0.0 103/ul Normal 0.0-0.[address] [facility] Comment on above: Performed By: #### C MP, URIC, LIPID #### [facility] [address] [address] [address] Toma Lemon Basophils/100 WBC (Bld) 0.4 % Normal 0.2-2.0 [facility] Comment on above: Performed By: #### C MP, URIC, LIPID #### [facility] [address] [address] [address] Toma Lemon EO # 0.1 103/ul Normal 0.0-0.7 [facility] Comment on above: Performed By: #### C MP, URIC, LIPID #### [facility] [address] [address] [address] Toma Lemon Eosinophils/100 WBC (Bld) 0.8 % Critically low 0.9-7.[address] [facility] Comment on above: Performed By: #### C MP, URIC, LIPID #### [facility] [address] [address] [address] Toma Lemon Erythrocyte distribution width (RBC) [Ratio] 13.0 % Normal 11.0-15.[address] [facility] Comment on above: Performed By: #### C MP, URIC, LIPID #### [facility] [address] [place] [address] Dr. Toma Lemon Hematocrit (Bld) [Volume fraction] 51.4 % Normal 42.0-54.[address] [facility] Comment on above: Performed By: #### C MP, URIC, LIPID #### [facility] [address] [place] [address] Dr. Toma Lemon Hemoglobin (Bld) [Mass/Vol] 16.9 g/dL Normal 14.0-18.[address] [facility] Comment on above: Performed By: #### C MP, URIC, LIPID #### [facility] [address] [place] [address] Dr. Toma Lemon IG # 0.05 10e3/ul Critically high 0.00-0.03 [facility] Comment on above: Performed By: #### C MP, URIC, LIPID #### [facility] [address] [place] [address] Dr. Toma Lemon IG % 0.5 % Normal 0.0-0.[address] [facility] Comment on above: Performed By: #### C MP, URIC, LIPID #### [facility] [address] [place] [address] Dr. Toma Lemon LYMPH # 2.3 103/ul Normal 1.2-3.[address] [facility] Comment on above: Performed By: #### C MP, URIC, LIPID #### [facility] [address] [place] [address] Dr. Toma Lemon Lymphocytes/100 WBC (Bld) 24.5 % Normal 20.5-60.[address] [facility] Comment on above: Performed By: #### C MP, URIC, LIPID #### [facility] [address] [place] [address] Dr. Toma Lemon MANUAL DIFF REQ NO Normal [facility] Comment on above: Performed By: #### C MP, URIC, LIPID #### [facility] [address] [place] [address] Dr. Toma Lemon MCH (RBC) [Entitic mass] 29.6 pg Normal 25.9-34.[address] [facility] Comment on above: Performed By: #### C MP, URIC, LIPID #### [facility] [address] [place] [address] Dr. Toma Lemon MCHC (RBC) [Mass/Vol] 32.9 g/dL Normal 29.9-35.2 [facility] Comment on above: Performed By: #### C MP, URIC, LIPID #### [facility] [address] [place] [address] Dr. Toma Lemon MCV (RBC) [Entitic vol] 90.0 fL Normal 80.0-94.0 [facility] Comment on above: Performed By: #### C MP, URIC, LIPID #### [facility] [address] [place] [address] Dr. oTma Lemon MONO # 0.9 103/ul Critically high 0.3-0.8 [facility] Comment on above: Performed By: #### C MP, URIC, LIPID #### [facility] [address] [place] [address] Dr. Toma Lemon Monocytes/100 WBC (Bld) 9.6 % Normal 1.7-12.0 [facility] Comment on above: Performed By: #### C MP, URIC, LIPID #### [facility] [address] [place] [address] Dr. Toma Lemon NEUT # 6.0 103/ul Normal 1.4-6.5 [facility] Comment on above: Performed By: #### C MP, URIC, LIPID #### [facility] [address] [place] [address] Dr. Toma Lemon Neutrophils/100 WBC (Bld) 64.2 % Normal 43.0-75.0 [facility] Comment on above: Performed By: #### C MP, URIC, LIPID #### [facility] [address] [address] [address] Toma Lemon Platelet mean volume (Bld) [Entitic vol] 12.0 fL Normal 9.5-13.[address] [facility] Comment on above: Performed By: #### C MP, URIC, LIPID #### [facility] [address] [address] [address] Toma Lemon PLT 174 103/ul Normal 150-450 [facility] Comment on above: Performed By: #### C MP, URIC, LIPID #### [facility] [address] [address] [address] Toma Lemon RBC 5.71 106/ul Normal 4.70-6.10 [facility] Comment on above: Performed By: #### C MP, URIC, LIPID #### [facility] [address] [place] [address] Dr. Toma Lemon WBC 9.3 103/ul Normal 4.0-11.[address] [facility] Comment on above: Performed By: #### C MP, URIC, LIPID #### [facility] [address] [place] [address] Dr. Toma Lemon LIPID PROFILEon 02-09-2022 CHOL-HDL RATIO NORM SEE BELOW Normal [facility] Comment on above: Result Comment: 3.3 - 4.4 LOW RISK 4.4 - 7.1 AVERAGE RISK 7.1 - 11.0 MODERATE RISK >11.0 HIGH RISK Performed By: #### C MP, TSH, LIPID #### [facility] [address] [place] [address] Dr. Toma Lemon Cholesterol [Mass/Vol] 162 mg/dL Normal <=200 [facility] Comment on above: Performed By: #### C MP, TSH, LIPID #### [facility] [address] [place] [address] Dr. Toma Lemon Cholesterol in HDL [Mass/Vol] 32 mg/dL Critically low 40-60 [facility] Comment on above: Performed By: #### C MP, TSH, LIPID #### [facility] [address] [place] [address] Dr. Toma Lemon Cholesterol in LDL [Mass/Vol] 57.2 mg/dL Normal [facility] Comment on above: Performed By: #### C MP, TSH, LIPID #### [facility] [address] [address] [address] Toma Lemon Cholesterol.total /Cholesterol in HDL [Mass ratio] 5.1 {ratio} Normal [facility] Comment on above: Performed By: #### C MP, TSH, LIPID #### [facility] [address] [address] [address] Toma Lemon HDL NORMAL > or = 60 mg/dl - LO W CARDIOVASCULAR RISK <40 mg/dl - HIGH CARDIOVASCULAR RISK Normal [facility] Comment on above: Performed By: #### C MP, TSH, LIPID #### [facility] [address] [place] [address] Dr. Toma Lemon LDL CALC NORMAL SEE BELOW Normal [facility] Comment on above: Result Comment: <100 mg/dl OPTIMAL 100 - 129 mg/dl NEAR OR ABOVE OPTIMAL 130 - 159 mg/dl BORDERLINE HIGH 160 - 189 mg/dl HIGH >190 mg/dl VERY HIGH Performed By: #### C MP, TSH, LIPID #### [facility] [address] [place] [address] Dr. Toma Lemon Triglyceride [Mass/Vol] 364 mg/dL Critically high <=[address] [facility] Comment on above: Performed By: #### C MP, TSH, LIPID #### [facility] [address] [place] [address] Dr. Toma Lemon VLDL CALC 72.8 mg/dL Normal [facility] Comment on above: Performed By: #### C MP, TSH, LIPID #### [facility] [address] [address] [address] Toma Lemon PROF 14(COMP METB)on 022 Albumin [Mass/Vol] 4.2 g/dL Normal 3.4-5.[address] [facility] Comment on above: Performed By: #### C MP, TSH, LIPID #### [facility] [address] [place] [address] Dr. Toma Lemon Albumin/Globulin [Mass ratio] 1.4 {ratio} Normal [facility] Comment on above: Performed By: #### C MP, TSH, LIPID #### [facility] [address] [place] [address] Dr. Toma Lemon ALP [Catalytic activity/Vol] 88 U/L Normal 46-[address] [facility] Comment on above: Performed By: #### C MP, TSH, LIPID #### [facility] [address] [place] [address] Dr. Toma Lemon ALT [Catalytic activity/Vol] 53 U/L Normal 16-63 [facility] Comment on above: Performed By: #### C MP, TSH, LIPID #### [facility] [address] [place] [address] Dr. Toma Lemon Anion gap [Moles/Vol] 13.0 mmol/L Normal [facility] Comment on above: Performed By: #### C MP, TSH, LIPID #### [facility] [address] [place] [address] Dr. Toma Lemon AST [Catalytic activity/Vol] 29 U/L Normal 15-[address] [facility] Comment on above: Performed By: #### C MP, TSH, LIPID #### [facility] [address] [place] [address] Dr. Toma Lemon Bilirubin [Mass/Vol] 1.7 mg/dL Critically high 0.2-1.[address] [facility] Comment on above: Performed By: #### C MP, TSH, LIPID #### [facility] [address] [place] [address] Dr. Toma Lemon Calcium [Mass/Vol] 8.9 mg/dL Normal 8.5-10.1 [facility] Comment on above: Performed By: #### C MP, TSH, LIPID #### [facility] [address] [place] [address] Dr. Toma Lemon Chloride [Moles/Vol] 99 mmol/L Normal 98-107 [facility] Comment on above: Performed By: #### C MP, TSH, LIPID #### [facility] [address] [place] [address] Dr. Toma Lemon CO2 [Moles/Vol] 31.2 mmol/L Normal 21.0-32.0 [facility] Comment on above: Performed By: #### C MP, TSH, LIPID #### [facility] [address] [address] [address] Toma Lemon Creatinine [Mass/Vol] 1.01 mg/dL Normal 0.70-1.30 [facility] Comment on above: Performed By: #### C MP, TSH, LIPID #### [facility] [address] [address] [address] Toma Lemon EGFR-AF CROATIAN >60 Normal >=60 [facility] Comment on above: Performed By: #### C MP, TSH, LIPID #### [facility] [address] [address] [address] Toma Lemon EGFR-NON AF CROATIAN >60 Normal >=60 [facility] Comment on above: Performed By: #### C MP, TSH, LIPID #### [facility] [address] [address] [address] Toma Lemon Globulin (S) [Mass/Vol] 3.0 g/dL Normal [facility] Comment on above: Performed By: #### C MP, TSH, LIPID #### [facility] [address] [address] [address] Toma Lemon Glucose [Mass/Vol] 122 mg/dL Critically high 74-[address] [facility] Comment on above: Performed By: #### C MP, TSH, LIPID #### [facility] [address] [address] [address] Toma Lemon Potassium [Moles/Vol] 3.2 mmol/L Critically low 3.5-5.1 [facility] Comment on above: Performed By: #### C MP, TSH, LIPID #### [facility] [address] [address] [address] Toma Lemon Protein [Mass/Vol] 7.2 g/dL Normal 6.4-8.2 [facility] Comment on above: Performed By: #### C MP, TSH, LIPID #### [facility] [address] [address] [address] Toma Lemon Sodium [Moles/Vol] 140 mmol/L Normal 136-145 [facility] Comment on above: Performed By: #### C MP, TSH, LIPID #### [facility] [address] [address] [address] Toma Lemon Urea nitrogen [Mass/Vol] 12.0 mg/dL Normal 7.0-18.[address] [facility] Comment on above: Performed By: #### C MP, TSH, LIPID #### [facility] [address] [address] [address] Toma Lemon Urea nitrogen/Creatini ne [Mass ratio] 11.9 mg/mg Normal [facility] Comment on above: Performed By: #### C MP, TSH, LIPID #### [facility] [address] [place] [address] Dr. Toma Lemon TSHon 02-09-2022 TSH 3.060 uIU/mL Normal 0.358-3.740 [facility] Comment on above: Performed By: #### C MP, TSH, LIPID #### [facility] [address] [place] [address] Dr. Toma Lemon TSH RANGE SEE BELOW Normal [facility] Comment on above: Result Comment: <0.3 4 UIU/ml HYPERTHYROID 0.34-5.60 UIU/ml EUTHYROID >5.60 UIU/ml HYPOTHYROID Performed By: #### C MP, TSH, LIPID #### [facility] [address] [place] [address] Dr. Toma Lemon Vital Signs Date Time Vital Sign Value Performing Clinician Facility 07-29-2023 08:28-0500 Blood Pressure Location Isidro CHAPIN [facility] 07-29-2023 08:28-0500 Diastolic blood pressure 89 mm[Hg] Isidro CHAPIN [facility] 07-29-2023 08:28-0500 Heart rate 79 /min Isidro CHAPIN [facility] 07-29-2023 08:28-0500 Respiratory rate 16 /min Isidro CHAPIN [facility] 07-29-2023 08:28-0500 Systolic blood pressure 132 mm[Hg] Isidro CHAPIN [facility] 03-07-2023 10:10-0400 Body height 182.88 cm Haley Verdin Other [employer] Other 03-07-2023 10:10-0400 Body mass index (BMI) [Ratio] 34.72 kg/m2 Haley Verdin Other [employer] Other 03-07-2023 10:10-0400 Body temperature 97.5 [degF] Haley Verdin Other [employer] Other 03-07-2023 10:10-0400 Body weight 116.12 kg Haley Verdin Other [employer] Other 03-07-2023 10:10-0400 Diastolic blood pressure 86 mm[Hg] Haley Verdin Other [employer] Other 03-07-2023 10:10-0400 Respiratory rate 18 /min Haley Verdin Other [employer] Other 03-07-2023 10:10-0400 SaO2% (BldA) [Mass fraction] 97 % Haley Verdin Other [employer] Other 03-07-2023 10:10-0400 Systolic blood pressure 179 mm[Hg] Haley Verdin Other [employer] Other 01-10-2023 09:27-0400 Blood Pressure Location Isidrodenis CHAPIN [facility] 01-10-2023 09:27-0400 Diastolic blood pressure 80 mm[Hg] Isidro CHAPIN [facility] 01-10-2023 09:27-0400 Heart rate 103 /min Isidro CHAPIN [facility] 01-10-2023 09:27-0400 Systolic blood pressure 145 mm[Hg] Isidro CHAPIN [facility] 10-29-2022 09:22-0500 Blood Pressure Location Isidro CHAPIN [facility] 10-29-2022 09:22-0500 Diastolic blood pressure 100 mm[Hg] Isidro CHAPIN [facility] 10-29-2022 09:22-0500 Heart rate 62 /min Isidro CHAPIN [facility] 10-29-2022 09:22-0500 Systolic blood pressure 156 mm[Hg] Isidro CHAPIN [facility] 05-27-2022 12:00-0400 Body height 182.88 cm Haley Verdin Other [employer] Other 05-27-2022 12:00-0400 Body mass index (BMI) [Ratio] 35.94 kg/m2 Haley Verdin Other [employer] Other 05-27-2022 12:00-0400 Body temperature 97.7 [degF] Haley Verdin Other [employer] Other 05-27-2022 12:00-0400 Body weight 120.2 kg Haley Verdin Other [employer] Other 05-27-2022 12:00-0400 Diastolic blood pressure 74 mm[Hg] Haley Verdin Other [employer] Other 05-27-2022 12:00-0400 Respiratory rate 18 /min Haley Verdin Other [employer] Other 05-27-2022 12:00-0400 SaO2% (BldA) [Mass fraction] 98 % Haley Verdin Other [employer] Other 05-27-2022 12:00-0400 Systolic blood pressure 152 mm[Hg] Haley Verdin Other [employer] Other 05-14-2022 17:30-0400 Body height 182.88 cm Farhana Polo Other [employer] Other 05-14-2022 17:30-0400 Body mass index (BMI) [Ratio] 35.94 kg/m2 Farhana Polo Other [employer] Other 05-14-2022 17:30-0400 Body temperature 98.7 [degF] Farhana Polo Other [employer] Other 05-14-2022 17:30-0400 Body weight 120.2 kg Farhana Polo Other [employer] Other 05-14-2022 17:30-0400 Respiratory rate 18 /min Farhana Polo Other [employer] Other 05-14-2022 17:30-0400 SaO2% (BldA) [Mass fraction] 97 % Farhana Polo Other [facility] [employer] Other 03-29-2022 08:12-0400 Diastolic blood pressure 86 mm[Hg] Shaikh Bogdanwad Work Phone: [facility] 250 DO Work Phone: 03-29-2022 08:12-0400 Systolic blood pressure 138 mm[Hg] Shaikh Markiewwad Work Phone: [facility] 250 DO Work Phone: 03-29-2022 08:09-0400 Body height 182.88 cm Shaikh Bogdanwad Work Phone: [facility] 250 DO Work Phone: 03-29-2022 08:09-0400 Body mass index (BMI) [Ratio] 36.18 kg/m2 Shaikh Bogdanwad Work Phone: [facility] 250 DO Work Phone: 03-29-2022 08:09-0400 Body surface area Derived from formula 2.41 m2 Shaikh Bogdanwad Work Phone: [facility] 250 DO Work Phone: 03-29-2022 08:09-0400 Body weight 121.02 kg Shaikh Bogdanwad Work Phone: [facility] 250 DO Work Phone: 03-29-2022 08:09-0400 Diastolic blood pressure 80 mm[Hg] Martinez Markiewwad Work Phone: [facility] 250 DO Work Phone: 03-29-2022 08:09-0400 Heart rate 67 /min Shaikh Celestino Work Phone: [facility] 250 DO Work Phone: 03-29-2022 08:09-0400 Systolic blood pressure 150 mm[Hg] Shaikh Celestino Work Phone: [facility] 250 DO Work Phone: Encounters Encounter Date Encounter Type Care Provider Facility Start: 07-30-2024 ambulatory Isidro CHAPIN Facili ty:[facility] Start: 07-29-2023 End: 07-30-2023 ambulatory Isidro CHAPIN Facility:[facility] Start: 07-29-2023 End: 07-29-2023 Patient encounter procedure Isidro CHAPIN [facility] Start: 03-07-2023 End: 03-07-2023 ambulatory Haley Verdin Other [facility] [employer] Other Start: 03-07-2023 Office outpatient vi sit 15 minutes Haley Verdin [facility] Start: 01-26-2023 ambulatory MARTINEZ H CELESTINO Encarnacion y:[facility] Start: 01-10-2023 End: 01-11-2023 ambulatory Isidro CHAPIN Facility:[facility] Start: 01-10-2023 End: 01-10-2023 Patient encounter procedure Isidro CHAPIN [facility] Start: 12-23-2022 End: 12-24-[address] ISIDRO CHAPIN . Facility:[facility] Start: 10-29-2022 End: 10-30-2022 ambulatory Isidro CHAPIN Facility:[facility] Start: 10-29-2022 End: 10-29-2022 Patient encounter procedure [facility] [facility] [employer] Start: 09-23-2022 ambulatory Isidro CHAPIN Facility :[facility] Start: 09-16-2022 End: 09-17-2022 ambulatory CAROLE YANNI AVILEZ Facility:[facility]1 Start: 09-09-2022 End: 09-10-2022 ambulatory MARTINEZ H FAWWAD Facility:[facility]1 Start: 06-23-2022 End: 06-24-[address] SIMONE CALIX Facility:[facility] Start: 05-31-2022 End: 06-01-2022 ambulatory MARTINEZ H FAWWAD Facility:[facility] Start: 05-27-2022 End: 05-27-2022 ambulatory Haley Lambert Other [employer] Other Start: 05-27-2022 Office outpatient vi sit 15 minutes Haley Verdin [facility] Start: 05-14-2022 End: 05-14-2022 ambulatory Farhana Polo Other [employer] Other Start: 05-14-2022 Office outpatient ne w 20 minutes Farhana Polo [facility] Start: 04-23-2022 Telephone encounter Shaikh Bogdan wad Work Phone: [facility] 600 DO Work Phone: Start: 04-21-[address] AIME PORRAS II Facility:[id number] Start: 04-12-2022 End: 04-13-2022 ambulatory MARTINEZ H FAWWAD Facility:[facility] Start: 03-29-2022 Office consultation new/estab patient 60 min Martinez Fawwad Work Phone: [facility] 250 DO Work Phone: Start: 03-29-2022 Office outpatient ne w 45 minutes Martinez Fawwad Work Phone: [facility] Work Phone: Start: 03-29-2022 ambulatory Aime Uribe II Faci lity: Start: 03-09-2022 ambulatory Aime Uribe II Faci lity:[facility] Start: 02-09-2022 End: 02-10-2022 ambulatory SHAIKH Reza DE [place] Facility:[facility]1 Start: 02-09-2022 End: 02-10-2022 ambulatory SHAIKH Reza DE LA [place]GA Facility: Procedures Date Procedure Procedure Detail Performing Clinician Start: 12-23-2022 PSA screening SHAIKH MARKIE MIKKI Comment on above: Performed By: #### P SAD #### [facility] [address] [place] [address] Dr. Toma Lemon ft (qualifier value) Isidro CHAPIN Operative procedure on foot Shaikh Markiemikki Work Phone: Tonsillectomy Shaikh Queagustín Work Phone: Tonsillectomy Isidro CHAPIN NEGATED: Highlighted row has not occurred! Colonoscopy Shaikh Celestino Work Phone: Plan of Treatment Date Care Activity Detail Author Start: 04-21-2022 STRESS MYLENE, Provider : GERONIMO BECERRA NUCLEAR 01,[id number], Status: Pen, Time: 11:00 AM STRESS MYLENE, Provider: GERONIMO MURILLOI NUCLEAR 01,[id number], Status: Pen, Time: 11:00 AM [facility] 250 DO Work Phone: Immunizations Immunization Date Immunization Notes Care Provider [facility] 07-28-2022 SARS-CoV-2 (COVID-19 ) [id number] Isidro CHAPIN [facility] 06-17-2022 influenza virus vaccine, unspecified formulation Isidro CHAPIN [facility] 06-09-2021 Pfizer-BioNTech COVID-19 Vacc 30 MCG/0.3ML Intramuscular Suspension Shaikh Markiemikki Work Phone: [facility] Comment on above: Series: 05-29-2021 influenza virus vaccine, unspecified formulation Isidrodenis CHAPIN [facility] 05-29-2021 influenza, seasonal, injectable Shaikh Markiewwad Work Phone: [facility] 250 DO Work Phone: Comment on above: Series: 05-15-2021 Fluzone High-Dose Quadrivalent 0.7 ML Intramuscular Suspension Prefilled Syringe Bogdanwad Work Phone: [facility] Work Phone: 05-15-2021 influenza virus vaccine, unspecified formulation Isidrodenis CHAPIN [facility] 11-26-2020 Pfizer-BioNTech COVID-19 Vacc 30 MCG/0.3ML Intramuscular Suspension Shaikh Markiewwad Work Phone: [facility] Comment on above: Series: 11-05-2020 Pfizer-BioNTech COVID-19 Vacc 30 MCG/0.3ML Intramuscular Suspension Shaikh Markiewwad Work Phone: [facility] Comment on above: Series: 06-27-2019 influenza virus vaccine, unspecified formulation Isidrodenis CHAPIN [facility] 06-27-2019 Seasonal, quadrivale nt, recombinant, injectable influenza vaccine, preservative free Martinez Fawwad Work Phone: [facility] Work Phone: Payers Date Payer Category Payer Medicare [id number] 2.1 [id number] 1959 Unknown [id number] 2.1 [id number] 1956 Unknown [id number] 2.16. [id number] 1956 Unknown [id number] 2.16.8 [id number] 1956 Unknown [id number] 2.16.84 0.1.096947.3.579.2.593 1956 Unknown [id number] 2.16.84 0.1.844633.3.579.2.593 1956 Unknown [id number] 2.16.84 0.1.823650.3.579.2.593 1956 Unknown [id number] 2.16.84 0.1.100610.3.579.2.593 1956 Unknown [id number] 2.16.84 0.1.260019.3.579.2.593 1956 Unknown [id number] 2.16.84 0.1.780855.3.579.2.593 1956 Unknown [id number] 2.16.84 0.1.011347.3.579.2.593 1956 Unknown [id number] 2.16.84 0.1.716096.3.579.2.593 1956 Unknown [id number] 2.16.84 0.1.695384.3.579.2.593 1956 Unknown [id number] 2.16.8 40.1.143019.3.579.2.727 1956 Unknown [id number] 2.16.8 40.1.075598.3.579.2.727 1956 Unknown [id number] 2.16.8 40.1.104990.3.579.2.727 1956 Unknown [id number] 2.16.8 40.1.412869.3.579.2.727 Medicare [id number] Unknown Social History Date Type Detail Facility No alcohol use No alcohol use [facility] 250 DO Work Phone: Comment on above: 1 SODA DAILY; Sex Assigned At [facility] Start: 10-29-2022 End: 01-10-2023 Tobacco smoking status Never smoked tobacco (finding) [facility] Tobacco smoking status Never [facility] Functional Status Date Assessment Result Facility 07-29-2023 Functional Status N/A [facility] 01-10-2023 Functional Status N/A [facility] 10-29-2022 Functional Status N/A [facility] Clinical Notes 05-14-2022 to 07-29-2023 Note Date & Type Note Facility 07-29-2023 Hospital Discharge instructions Patient Education 07/29/2023 09:01:05 Benign Prostatic Hyperplasia Benign Prostatic Hyperplasia Benign prostatic hyperplasia (BPH) is an enlarged prostate gland that is caused by the normal aging process. The prostate may get bigger as a man gets older. The condition is not caused by cancer. The prostate is a walnut-sized gland that is involved in the production of semen. It is located in front of the rectum and below the bladder. The bladder stores urine. The urethra carries stored urine out of the body. An enlarged prostate can press on the urethra. This can make it harder to pass urine. The buildup of urine in the bladder can cause infection. Back pressure and infection may progress to bladder damage and kidney (renal) failure. What are the causes? This condition is part of the normal aging process. However, not all men develop problems from this condition. If the prostate enlarges away from the urethra, urine flow will not be blocked. If it enlarges toward the urethra and compresses it, there will be problems passing urine. What increases the risk? This condition is more likely to develop in men older than 50 years. What are the signs or symptoms? Symptoms of this condition include: Getting up often during the night to urinate. Needing to urinate frequently during the day. Difficulty starting urine flow. Decrease in size and strength of your urine stream. Leaking (dribbling) after urinating. Inability to pass urine. This needs immediate treatment. Inability to completely empty your bladder. Pain when you pass urine. This is more common if there is also an infection. Urinary tract infection (UTI). How is this diagnosed? This condition is diagnosed based on your medical history, a physical exam, and your symptoms. Tests will also be done, such as: A post-void bladder scan. This measures any amount of urine that may remain in your bladder after you finish urinating. A digital rectal exam. In a rectal exam, your health care provider checks your prostate by putting a lubricated, gloved finger into your rectum to feel the back of your prostate gland. This exam detects the size of your gland and any abnormal lumps or growths. An exam of your urine (urinalysis). A prostate specific antigen (PSA) screening. This is a blood test used to screen for prostate cancer. An ultrasound. This test uses sound waves to electronically produce a picture of your prostate gland. Your health care provider may refer you to a specialist in kidney and prostate diseases (urologist). How is this treated? Once symptoms begin, your health care provider will monitor your condition (active surveillance or watchful waiting). Treatment for this condition will depend on the severity of your condition. Treatment may include: Observation and yearly exams. This may be the only treatment needed if your condition and symptoms are mild. Medicines to relieve your symptoms, including: ?Medicines to shrink the prostate. ?Medicines to relax the muscle of the prostate. Surgery in severe cases. Surgery may include: ?Prostatectomy. In this procedure, the prostate tissue is removed completely through an open incision or with a laparoscope or robotics. ?Transurethral resection of the prostate (TURP). In this procedure, a tool is inserted through the opening at the tip of the penis (urethra). It is used to cut away tissue of the inner core of the prostate. The pieces are removed through the same opening of the penis. This removes the blockage. ?Transurethral incision (TUIP). In this procedure, small cuts are made in the prostate. This lessens the prostate's pressure on the urethra. ?Transurethral microwave thermotherapy (TUMT). This procedure uses microwaves to create heat. The heat destroys and removes a small amount of prostate tissue. ?Transurethral needle ablation (TUNA). This procedure uses radio frequencies to destroy and remove a small amount of prostate tissue. ?Interstitial laser coagulation (ILC). This procedure uses a laser to destroy and remove a small amount of prostate tissue. ?Transurethral electrovaporization (TUVP). This procedure uses electrodes to destroy and remove a small amount of prostate tissue. ?Prostatic urethral lift. This procedure inserts an implant to push the lobes of the prostate away from the urethra. Follow these instructions at home: Take pnmz-syf-skocswe and prescription medicines only as told by your health care provider. Monitor your symptoms for any changes. Contact your health care provider with any changes. Avoid drinking large amounts of liquid before going to bed or out in public. Avoid or reduce how much caffeine or alcohol you drink. Give yourself time when you urinate. Keep all follow-up visits. This is important. Contact a health care provider if: You have unexplained back pain. Your symptoms do not get better with treatment. You develop side effects from the medicine you are taking. Your urine becomes very dark or has a bad smell. Your lower abdomen becomes distended and you have trouble passing urine. Get help right away if: You have a fever or chills. You suddenly cannot urinate. You feel light-headed or very dizzy, or you faint. There are large amounts of blood or clots in your urine. Your urinary problems become hard to manage. You develop moderate to severe low back or flank pain. The flank is the side of your body between the ribs and the hip. These symptoms may be an emergency. Get help right away. Call 911. Do not wait to see if the symptoms will go away. Do not drive yourself to the hospital. Summary Benign prostatic hyperplasia (BPH) is an enlarged prostate that is caused by the normal aging process. It is not caused by cancer. An enlarged prostate can press on the urethra. This can make it hard to pass urine. This condition is more likely to develop in men older than 50 years. Get help right away if you suddenly cannot urinate. This information is not intended to replace advice given to you by your health care provider. Make sure you discuss any questions you have with your health care provider. Document Revised: 03/03/2022 Document Reviewed: 03/03/2022 [employer] Patient Education 2022 [employer] Follow Up Care 01/10/2023 10:41:16 With:ALMA RAE, Isidro Alvarado, URL Address: [address] [place] [address]- When: Unknown [facility] 03-07-2023 Evaluation note Encounter Date Diagnosis Assessment Notes Feb, Acute swimmer's ear of right side (ICD-10 - H60.331) Discussed diagnosis with patient. Use ear drops as prescribed. Discussed proper installation of ear drops, drops should be at room temperature before instilling, lie down with affected ear facing up. After instilling drops gently wiggle ear to help drops reach ear canal, lay with affected ear facing up for 3-5 minutes. Supportive care as discussed, increase fluid intake, Tylenol/Motrin as needed for discomfort, warm compress. Proper ear hygiene discussed. Avoid putting anything inside the ear such as Q-tips, do not use other OTC ear drops unless directed by a provider. Avoid submerging head underwater, avoid water sports for 7-10 days, when showering place cotton ball lightly coated with petroleum jelly as ear plug to prevent water from going into ear, if water inside ear after shower may use chair post machine operator on lowest cool setting to blow dry. Follow up with PCP or UC if no improvement in the next 2-3 days if symptoms do not improve. Immediate eval for severe ear pain, severe headache, neck pain/stiffness, pain, erythema, or swelling behind the ear, fever, N/V, hearing loss, fever, or any other new or concerning symptoms. Patient verbalizes understanding and is agreeable to treatment plan. Feb, Impacted cerumen of right ear (ICD-10 - H61.21) Ear lavage in office today. Discussed proper ear hygiene. Avoid putting anything inside the ear such as Q-tips, etc. Patient may use OTC wax softeners (Debrox) as directed as needed. Follow up with UC or PCP as needed. Immediate eval for ear drainage, pain, loss of hearing, ringing, dizziness, fever, redness, swelling, and pain behind the ear, headache, neck pain, or any other new or concerning symptoms. Patient verbalizes understanding and is agreeable to treatment plan [employer] Other 05-15-2023 Hospital Discharge instructions Patient Education 01/10/2023 10:39:09 Benign Prostatic Hyperplasia Benign Prostatic Hyperplasia Benign prostatic hyperplasia (BPH) is an enlarged prostate gland that is caused by the normal agingprocess. The prostate may get bigger as a man gets older. The condition is not caused by cancer. The prostate is a walnut-sized gland that is involved in the production of semen. It is located in front of the rectum and below the bladder. The bladder stores urine. The urethra carries stored urine ou t of the body. An enlarged prostate can press on the urethra. This can make it harder to pass urine. The buildup of urine in the bladder can cause infection. Back pressure and infection may progress to bladder damage and kidney (renal) failure. What are the causes? This condition is part of the normal aging process. However, not all men develop problems from thiscondition. If the prostate enlarges away from the urethra, urine flow will not be blocked. If it enlarges toward the urethra and compresses it, there will be problems passing urine. What increases the risk? This condition is more likely to develop in men older than 50 years. What are the signs or symptoms? Symptoms of this condition include: Getting up often during the night to urinate. Needing to urinate frequently during the day. Difficulty starting urine flow. Decrease in size and strength of your urine stream. Leaking (dribbling) after urinating. Inability to pass urine. This needs immediate treatment. Inability to completely empty your bladder. Pain when you pass urine. This is more common if there is also an infection. Urinary tract infection (UTI). How is this diagnosed? This condition is diagnosed based on your medical history, a physical exam, and your symptoms. Tests will also be done, such as: A post-void bladder scan. This measures any amount of urine that may remain in your bladder after you finish urinating. A digital rectal exam. In a rectal exam, your health care provider checks your prostate by putting a lubricated, gloved finger into your rectum to feel the back of your prostate gland. This exam detects the size of your gland and any abnormal lumps or growths. An exam of your urine (urinalysis). A prostate specific antigen (PSA) screening. This is a blood test used to screen for prostate cancer. An ultrasound. This test uses sound waves to electronically produce a picture of your prostate gland. Your health care provider may refer you to a specialist in kidney and prostate diseases (urologist). How is this treated? Once symptoms begin, your health care provider will monitor your condition (active surveillance or watchful waiting). Treatment for this condition will depend on the severity of your condition. Treatment may include: Observation and yearly exams. This may be the only treatment needed if your condition and symptoms are mild. Medicines to relieve your symptoms, including: ?Medicines to shrink the prostate. ?Medicines to relax the muscle of the prostate. Surgery in severe cases. Surgery may include: ?Prostatectomy. In this procedure, the prostate tissue is removed completely through an open incision or with a laparoscope or robotics. ?Transurethral resection of the prostate (TURP). In this procedure, a tool is inserted through the opening at the tip of the penis (urethra). It is used to cut away tissue of the inner core of the prostate. The pieces are removed through the same opening of the penis. This removes the blockage. ?Transurethral incision (TUIP). In this procedure, small cuts are made in the prostate. This lessens the prostate's pressure on the urethra. ?Transurethral microwave thermotherapy (TUMT). This procedure uses microwaves to create heat. The heat destroys and removes a small amount of prostate tissue. ?Transurethral needle ablation (TUNA). This procedure uses radio frequencies to destroy and remove a small amount of prostate tissue. ?Interstitial laser coagulation (ILC). This procedure uses a laser to destroy and remove a small amount of prostate tissue. ?Transurethral electrovaporization (TUVP). This procedure uses electrodes to destroy and remove a small amount of prostate tissue. ?Prostatic urethral lift. This procedure inserts an implant to push the lobes of the prostate away from the urethra. Follow these instructions at home: Take efih-dim-arsneoi and prescription medicines only as told by your health care provider. Monitor your symptoms for any changes. Contact your health care provider with any changes. Avoid drinking large amounts of liquid before going to bed or out in public. Avoid or reduce how much caffeine or alcohol you drink. Give yourself time when you urinate. Keep all follow-up visits. This is important. Contact a health care provider if: You have unexplained back pain. Your symptoms do not get better with treatment. You develop side effects from the medicine you are taking. Your urine becomes very dark or has a bad smell. Your lower abdomen becomes distended and you have trouble passing urine. Get help right away if: You have a fever or chills. You suddenly cannot urinate. You feel light-headed or very dizzy, or you faint. There are large amounts of blood or clots in your urine. Your urinary problems become hard to manage. You develop moderate to severe low back or flank pain. The flank is the side of your body between the ribs and the hip. These symptoms may be an emergency. Get help right away. Call 911. Do not wait to see if the symptoms will go away. Do not drive yourself to the hospital. Summary Benign prostatic hyperplasia (BPH) is an enlarged prostate that is caused by the normal aging process. It is not caused by cancer. An enlarged prostate can press on the urethra. This can make it hard to pass urine. This condition is more likely to develop in men older than 50 years. Get help right away if you suddenly cannot urinate. This information is not intended to replace advice given to you by your health care provider. Make sure you discuss any questions you have with your health care provider. Document Revised: 03/03/2022 Document Reviewed: 03/03/2022 [employer] Patient Education 2022 [employer]. Follow Up Care 10/29/2022 10:07:00 With:ALMA RAE, Isidro Alvarado, URL Address: [facility] [address] [place] [address]- [phone] When:Within 6 Month(s) Comments:f/u in 6 months [facility] [place] 03-03-2023 NoteChief Complaint New pt referral for UTI's HPI Staff New patient referral Dr. Shaikh De La Vega. Dx: UTI, dysuria and frequency. Patient states he gets a UTI 1x a year. Patient states this was an issue back in August 2022 and he completed antibiotics and is better now. He took Bactrim Ds to treat UTI. Patient states he feels better now. IPSS=3 Dysuria: denies Incomplete bladder emptying: denies Hematuria: denies Frequency: patient states normal Urgency: denies Nocturia: 1x Stream: strong Leaking: denies Post void dripping: denies Wearing pads/ Depends: denies Urge incontinence: denies Stress incontinence: denies Incontinence without Sensory Awareness: denies Abdominal pain: denies Flank pain: denies History of Present Illness Tests reviewed: reviewed UA & referral records. I have reviewed the previous health record information and history for this patient from Dr. Chapin. I have reviewed and verified the staff HPI to be accurate for this encounter. There have been no associated fever, chills, flank pain, or blood in the urine. Denies any urinary infections since last encounter. Review of Systems PHQ Score Initial Depression Screen Score: 0 ROS - Provider Constitutional: denies weight loss, denies hot flashes. Eyes: denies eye problems. Gastrointestinal: denies nausea, denies vomiting. Cardiovascular: denies chest pain or angina. Integumentary: no dryness Musculoskeletal: denies musculoskeletal symptoms. ENMT: denies otolaryngeal symptoms. Respiratory: no shortness of breath. Heme/Lymph: denies easy bleeding tendency, denies easy bruising tendency. Psychiatric: no confusion, no anxiety. Genitourinary: denies dysuria, denies hematuria, denies discharge, denies urinary frequency, deniesurinary hesitancy, denies nocturia, denies incontinence, denies genital sores, denies decreased libido, and denies erectile dysfunction. Physical Exam Vitals & Measurements HR: 62(Peripheral) BP: 156/100 HT: 72 in HT: 184 cm WT: 122 kg WT: 268.4 lb BMI: 36.03 General Appearance: alert, no distress, well nourished, well developed male. Head: normocephalic . Eyes: normal orbit and globe. ENMT: normal examination of external ears. Chest: Lungs CTA, respirations non labored. Cardiovascular: regular rate and rhythm. Abdomen: soft, non distended, no tenderness, no mass or organomegaly, no hernia. Genitourinary: normal scrotum, normal testes, normal urethra, normal epididymis, normal vas deferens/spermatic cord. Flank Pain: none. Bladder: nonpalpable. Penis: normal shaft, normal glans. Lymph Nodes: unremarkable palpation of the cervical area. Skin: warm, dry, no bruising. Psychiatric: cooperative, affect appropriate for age, normal judgement, euthymic mood. Assessment/Plan 1. Prostatitis (N41.9: Inflammatory disease of prostate, unspecified) New patient referred by Dr. Shaikh De La Vega from [facility]. Pt. states he usually has one infection per year. Recently treated in August with Macrobid. Explained that infections can be caused by not fully emptying, infrequent voiding and an enlarged prostate. Feels his symptoms have resolved. UA today shows TRACE-INTACT blood and small RUTH ANN. Will start Bactrim-DS BID x3 weeks, take with food. he has partially treated prostatitis. 2. BPH with urinary obstruction (N40.1: Benign prostatic hyperplasia with lower urinary tract symptoms) IPSS 3 (mild symptoms). Pt. shares Dr. De La Vega started him on Flomax, states he d/c it on Tuesday because he felt it was making him void more frequently, every couple hours. Explained to pt. that it ishealthy to void every 2-3 hours even without sensation to fully empty. Reports he has a good streamand gets up once during the night. Will start Alfuzosin 10mg ER daily. Discussed the medication side effects, and the patient will monitor closely for these, as well as for symptom improvement. If severe side effects occur, the medication should be stopped and the office notified. Will have PSA checked once antibiotic course is completed. states pt. has never had a PSA checked. Will return to office in 2-3 months with PSA. All questions/concerns were discussed. Pt. to call the office if heencounters any issues prior. Pt. acknowledges understanding. 3. History of kidney stones (Z87.442: Personal history of urinary calculi) Reports it was years ago. None since, no recent imaging. Follow-up With When Contact Information ALMA RAE, Isidro Alvarado, [address] [place] [address]- Additional Instructions: 2-3 mos w/ PSA & [place] Patient Education Prostatitis I, Melanie Waterman, personally scribed for Dr. Chapin on 10/29/2022 10:03:09. Electronically signedby vianey Waterman on 10/29/2022 10:03:09. Documentation recorded by the scribe, Melanie Waterman, accurately reflects the services(s) I performed and decisions made by me. Authenticated by Dr. Chapin on 10/29/2022 10:05:07. Problem List/Past Medical Histo (more content not included)...[facility]Result Comment: Electronically Signed By: Isidro CHAPIN MD\.br\Date and Time Signed: 10/29/22 10:05 EST\.br\Electronically Co-Signed By: Melanie Waterman.br\Date and Time Co-Signed: 10/29/2309:03 [id number] Hospital Discharge instructions Patient Education 10/29/2022 09:52:13 Prostatitis Prostatitis Prostatitis is swelling or inflammation of the prostate gland. The prostate is a walnut-sized glandthat is involved in the production of semen. It is located below a man's bladder, in front of the rectum. There are four types of prostatitis: Chronic nonbacterial prostatitis. This is the most common type of prostatitis. It may be associatedwith a viral infection or autoimmune disorder. Acute bacterial prostatitis. This is the least common type of prostatitis. It starts quickly and isusually associated with a bladder infection, high fever, and shaking chills. It can occur at any age. Chronic bacterial prostatitis. This type usually results from acute bacterial prostatitis that happens repeatedly (is recurrent) or has not been treated properly. It can occur in men of any age but is most common among middle-aged men whose prostate has begun to get larger. The symptoms are not as severe as symptoms caused by acute bacterial prostatitis. Prostatodynia or chronic pelvic pain syndrome (CPPS). This type is also called pelvic floor disorder. It is associated with increased muscular tone in the pelvis surrounding the prostate. What are the causes? Bacterial prostatitis is caused by infection from bacteria. Chronic nonbacterial prostatitis may becaused by: Urinary tract infections (UTIs). Nerve damage. A response by the body s disease-fighting system (autoimmune response). Chemicals in the urine. The causes of the other types of prostatitis are usually not known. What are the signs or symptoms? Symptoms of this condition vary depending upon the type of prostatitis. If you have acute bacterialprostatitis, you may experience: Urinary symptoms, such as: ?Painful urination. ?Burning during urination. ?Frequent and sudden urges to urinate. ?Inability to start urinating. ?A weak or interrupted stream of urine. Vomiting. Nausea. Fever. Chills. Inability to empty the bladder completely. Pain in the: ?Muscles or joints. ?Lower back. ?Lower abdomen. If you have any of the other types of prostatitis, you may experience: Urinary symptoms, such as: ?Sudden urges to urinate. ?Frequent urination. ?Difficulty starting urination. ?Weak urine stream. ?Dribbling after urination. Discharge from the urethra. The urethra is a tube that opens at the end of the penis. Pain in the: ?Testicles. ?Penis or tip of the penis. ?Rectum. ?Area in front of the rectum and below the scrotum (perineum). Problems with sexual function. Painful ejaculation. Bloody semen. How is this diagnosed? This condition may be diagnosed based on: A physical and medical exam. Your symptoms. A urine test to check for bacteria. An exam in which a health care provider uses a finger to feel the prostate (digital rectal exam). A test of a sample of semen. Blood tests. Ultrasound. Removal of prostate tissue to be examined under a microscope (biopsy). Tests to check how your body handles urine (urodynamic tests). A test to look inside your bladder or urethra (cystoscopy). How is this treated? Treatment for this condition depends on the type of prostatitis. Treatment may involve: Medicines to relieve pain or inflammation. Medicines to help relax your muscles. Physical therapy. Heat therapy. Techniques to help you control certain body functions (biofeedback). Relaxation exercises. Antibiotic medicine, if your condition is caused by bacteria. Warm water baths (sitz baths). Sitz baths help with relaxing your pelvic floor muscles, which helpsto relieve pressure on the prostate. Follow these instructions at home: Take [id number] and prescription medicines only as told by your health care provider. If you were prescribed an antibiotic, take it as told by your health care provider. Do not stop taking the antibiotic even if you start to feel better. If physical therapy, biofeedback, or relaxation exercises were prescribed, do exercises as instructed. Take sitz baths as directed by your health care provider. For a sitz bath, sit in warm water that is deep enough to cover your hips and buttocks. Keep all follow-up visits as told by your health care provider. This is important. Contact a health care provider if: Your symptoms get worse. You have a fever. Get help right away if: You have chills. You feel nauseous. You vomit. You feel light-headed or feel like you are going to faint. You are unable to urinate. You have blood or blood clots in your urine. This information is not intended to replace advice given to you by your health care provider. Make sure you discuss any questions you have with your health care provider. Document Released: 08/12/2001 Document Revised: 10/28/2018 Document Reviewed: 05/05/2017 [employer] Patient Education 2020 [employer] Follow Up Care 09/23/2022 10:03:40 With:ALMA RAE, Isidro Alvarado, URL Address: [address] [place] [address]- When: Unknown [facility] 10-26-2022 NotePROCEDURE: XR KNEE RT 4V or > HISTORY: Pain of right knee joint COMPARISON: None. FINDINGS: BONES:No fracture, acute abnormality, or significant arthropathy. SOFT TISSUES:Marked thickening of the prepatellar soft tissues. EFFUSION:None visible. OTHER: Negative. IMPRESSION: 1. Marked prepatellar soft tissue thickening; bursitis versus mass. 2. No acute bone abnormality, significant degenerative joint disease, or joint effusion. Electronically authenticated by: SIMONE CALIX Date: 2022-06-23 21:55[facility]09[facility] Evaluation note* Encounter Date Diagnosis Assessment Notes Treatment Notes Treatment Clinical Notes Apr, Exacerbation of gout (ICD-10 - M10.9) Discussed diagnosis with patient. Will send in rx of prednisone to use as directed. Ice or a cold pack on the area for 10 to 20 minutes at a time. Put a thin cloth between the ice and your skin. Elevate leg on a pillow when you ice it or anytime you sit or lie down. Avoid activities that put weight or strain on the joint for a few days, take rest breaks from regular activities during the day. Eat low purine diet, refrain from drinking alcohol or sugary drinks, increase water intake. Follow up with PCP in 3-4 days. Seek immediate evaluation if fever, severe pain, symptoms in new areas/joints, rash, abdominal/flank pain, nausea/vomiting, or any new or concerning symptoms. Patient verbalizes understanding and is agreeable to treatment plan Apr, Other Gout home care material was printed [employer] Other 09-16-2022 Evaluation note* Encounter Date Diagnosis Assessment Notes Treatment Notes Treatment Clinical Notes Apr, Contact with and (suspected) exposure to covid-19 (ICD-10 - Z20.822) Apr, COVID-19 (ICD-10 - U07.1) COVID testing is positive. Recommended patient initiate self quarantine per CDC guidlines: for at least 5 days from symptom onset, afebrile for >24 hours without use of antipyretics, and symptoms are mostly resolved. Paxlovid rx sent, take as directed. Hold atorvastatin while on paxlovid, may restart after rx completion. D/c keflex as this is not a bacterial infection. Patient may continue to treat symptomatically as discussed, rest, stay hydrated. Immediate evaluation via ED if warning symptoms of respiratory distress, intractable fevers, severe abdominal pain, inability to keep down foods or fluids, or s/s of dehydration. Follow up with PCP for further evaluation and mgmt. Apr, Other Due to infection control protocols for COVID-19 virus, direct physical contact with patient was limited to only the absolute essential needed assessments. [employer] Other chief complaint Narrative - ReportedTERRY BOGNER is being seen for a cardiovascular evaluation . FAWFERNANDOD LUIS SVT FREQ ECTOPY.[facility] [address] DO Work Phone: Chide complaint Narrative - ReportedTERRY BOGNER is being seen for a cardiovascular evaluation . FAWWAD ABN HM SVT FREQ ECTOPY. [facility] Work Phone: Chitw complaint Narrative - ReportedTERRY BOGNER is being seen for a cardiovascular evaluation . FAWWAD ABN HM SVT FREQ ECTOPY. [facility] Work Phone: Evaluation + Plan note Future Appointments Appointment Date:01/10/2023 09:30:00 AM Scheduled Provider:Isidro CHAPIN MD Location:[facility] Appointment Type:URO Office Visit Diagnostic Tests Pending * PSA Total 10/29/22 [facility] evaluation + Plan note Future Appointments Appointment Date:07/29/2023 08:30:00 AM Scheduled Provider:Isidro CHAPIN MD Location:[facility] Appointment Type:URO Office Visit [facility] evaluation + Plan note Future Appointments Appointment Date:07/30/2024 08:45:00 AM Scheduled Provider:Isidro CHAPIN MD Location:[facility] Appointment Type:URO Office Visit Diagnostic Tests Pending * PSA Screen, Total 05/29/24 [facility] History general Narrative - Reported* Type Description Date Medical History hypercholesterolemia Medical History Hypertension Medical History [employer] Other History of Present illness Narrative* [facility] primary care [facility] for arrhythmia complaints. Recently had some palpitations and a Holter monitor was done demonstrating PACs PVCs and a 5 beat runof SVT and is seen in this regard. We discussed in tremendous detail and I believe the arrhythmia to be benign. He has had no syncope near syncope or other arrhythmia symptoms and he has no manifestations of heart failure. The Holter monitor was benign. * He is treated for hyperlipidemia and hypertension. Treatment appears good. I suggested to him that hypokalemia could be increasing ventricular ectopy and he acknowledges [facility] and they are treating it with supplement. I encouraged him to p ursue that matter with primary care and also suggested that in the future he may have to abandon the chlorthalidone therapy in favor of a different blood pressure medicine if potassium continues to be a problem. * Interestingly, though, the patient states he has chest burning. Further discussion and review with him reveals that it occurs with aerobic workload, typically after an evening meal when he and his walk 2 or 3 miles at a brisk pace. I advised him that this actually sounds like angina and is more concerning than the arrhythmia complaint and because of this I recommended treadmill testing. Follow-up will be arranged after stress test is done and I encouraged him to seek emergency care if he had unrelenting burning and go to the emergency room if such symptoms arise. [facility] Plasencia DO Work Phone: History of Present illness Narrative* Patient is seen [facility] at the request of his primary care physician for arrhythmia complaints. Recently had some palpitations and a Holter monitor was done demonstrating PACs PVCs and a 5 beat runof SVT and is seen in this regard. We discussed in tremendous detail and I believe the arrhythmia to be benign. He has had no syncope near syncope or other arrhythmia symptoms and he has no manifestations of heart failure. The Holter monitor was benign. * He is treated for hyperlipidemia and hypertension. Treatment appears good. I suggested to him that hypokalemia could be increasing ventricular ectopy and he acknowledges that [facility] and they are treating it with supplement. I encouraged him to p ursue that matter with primary care and also suggested that in the future he may have to abandon the chlorthalidone therapy in favor of a different blood pressure medicine if potassium continues to be a problem. * Interestingly, though, the patient states he has chest burning. Further discussion and review with him reveals that it occurs with aerobic workload, typically after an evening meal when he and his walk 2 or 3 miles at a brisk pace. I advised him that this actually sounds like angina and is more concerning than the arrhythmia complaint and because of this I recommended treadmill testing. Follow-up will be arranged after stress test is done and I encouraged him to seek emergency care if he had unrelenting burning and go to the emergency room if such symptoms arise. [facility] Work Phone: History of Present illness Narrative* Patient is seen [facility] at the request of his primary care physician for arrhythmia complaints. Recently had some palpitations and a Holter monitor was done demonstrating PACs PVCs and a 5 beat runof SVT and is seen in this regard. We discussed in tremendous detail and I believe the arrhythmia to be benign. He has had no syncope near syncope or other arrhythmia symptoms and he has no manifestations of heart failure. The Holter monitor was benign. * He is treated for hyperlipidemia and hypertension. Treatment appears good. I suggested to him that hypokalemia could be increasing ventricular ectopy and he acknowledges that [facility] and they are treating it with supplement. I encouraged him to p ursue that matter with primary care and also suggested that in the future he may have to abandon the chlorthalidone therapy in favor of a different blood pressure medicine if potassium continues to be a problem. * Interestingly, though, the patient states he has chest burning. Further discussion and review with him reveals that it occurs with aerobic workload, typically after an evening meal when he and his walk 2 or 3 miles at a brisk pace. I advised him that this actually sounds like angina and is more concerning than the arrhythmia complaint and because of this I recommended treadmill testing. Follow-up will be arranged after stress test is done and I encouraged him to seek emergency care if he had unrelenting burning and go to the emergency room if such symptoms arise. [facility] Work Phone: Hospital course Narrative No data available for this section [facility] progress note No data available for this section [facility] Summary Purpose Family History No Family History Records Found Advance Directives No Advanced Directives Records FoundNo Advanced Directives Records FoundNo Advanced Directives Records FoundNo Advanced Directives Records FoundNo Advanced Directives Records Found Additional Source Comments (unrecognized sect ion and content) No Status Records FoundNo Status Records FoundNo Status Records FoundNo Status Records FoundNo Status Records Found INFORMATION SOURCE (unrecogn ized section and content) DATE CREATED AUTHOR 03/31/2022 [employer] DATE CREATED AUTHOR AUTHOR'S ORGANIZ ATION 06/22/2022 [facility] DATE CREATED AUTHOR AUTHOR'S ORGANIZ ATION 06/22/2022 [facility] DATE CREATED AUTHOR AUTHOR'S ORGANIZ ATION 02/04/2023 [facility] DATE CREATED AUTHOR AUTHOR'S ORGANIZ ATION 07/31/2023 [facility] REASON FOR VISIT (unrecogniz ed section and content) BLUE ESCORT, COUGH, CONGESTI ON, H/A, B/A, SORE THROAT, POSITIVE HOME TESTRIGHT FOOT PAINWATER IN EAR, RIGHT, CAN'T HEAR Patient Care team informatio n (unrecognized section and content) Personnel Name: SHAIKH DE LA VEGA Address: Address: [address] [place], [place] [address] Personnel Name: SHAIKH DE LA VEGA Address: Address: [address] [place] [address] Personnel Name: SHAIKH DE LA VEGA MD Address: Address: [address] [place] [address] FOR RECORDS PERTAINING TO PATIENTS WHO ARE OR HAVE BEEN ENROLLED IN A CHEMICAL DEPENDENCY/SUBSTANCEABUSE PROGRAM, SOME INFORMATION MAY BE OMITTED. This clinical summary was aggregated from multiple sources. Caution should be exercised in using it in the provision of clinical care. This summary normalizes information from multiple sources, and as a consequence, information in this document may materially change the coding, format and clinical context of patient data. In addition, data may be omitted in some cases. CLINICAL DECISIONS SHOULD BE BASED ON THE PRIMARY CLINICAL RECORDS. [facility]. provides no warranty or guarantee of the accuracy or completeness of information in this document.
[2023-10-03 09:33] LABS: Alanine Aminotransferase 32 U/L (16-63); Albumin Globulin Ratio 1.3; Alkaline Phosphatase 66 U/L (46-116); Anion Gap 11.9; Aspartate Amino Transferase 15 U/L (15-37); BUN Creatinine Ratio 20.8; Bilirubin Total 1.3 mg/dL (0.2-1.0); Calcium 8.5 mg/dL (8.5-10.1); Carbon Dioxide 30.6 mmol/L (21.0-32.0); Chloride 102 mmol/L (98-107); Cholesterol 165 mg/dL (<=200); Estimated GFR (African America >60 (>=60); Estimated GFR (Non-African Ame >60 (>=60); Glucose 117 mg/dL (74-106); HDL Cholesterol 33 mg/dL (40-60); Potassium 3.5 mmol/L (3.5-5.1); Sodium 141 mmol/L (136-145); Triglycerides 321 mg/dL (<=150); VLDL CHOLESTEROL 64.2 mg/dL
== END 2023-10-03 08:54 | disposition home or self-care (01) ==
LOC: LAB 08:53
PROVIDERS: PCP Internal Medicine; Visit Provider Internal Medicine
DX: E78.5 Hyperlipidemia, unspecified (principal); I10 Essential (primary) hypertension
CPT/HCPCS: 36415; 80053; 80061

== ENCOUNTER 2025-06-18 06:51 | Outpatient (OUT) | payer MEDICARE, SELFPAY ==
--- OUTSIDE RECORDS SUMMARY | 2025-06-04 05:33 | XMS_ITS | Continuity of Care Document ---
Author Organization [facility] Address [address] [place] [address] Phone Care Team Providers Care Scheduling Administrator Name Role Phone Atiya Zimmerman HOME HEALTH CLINICAL SUPERVISOR-C Primary Care Provider Atiya Zimmerman NP-C Attending Provider Care Teams Patient Care Team Team Status: Active Member Role Status Dates Atiya Zimmerman NP-C Primary Care Provider Active Patient Care Team Team Status: Inactive Member Role Status Dates Atiya Zimmerman HOME HEALTH CLINICAL SUPERVISOR-C Primary Care Provider Active Start: June 04, 2025 End: June 04, 2025Atiya Zimmerman HOME HEALTH CLINICAL SUPERVISOR-CAttending ProviderActiveStart: June 04, 2025 End: June 04, 2025 Chief Complaint and Reason for Visit Chief Complaint Admit Date med refills June 04, 2025 8: 27am Reason for Visit Admit Date BPH with urinary obstruction May 8:27am Colon cancer screening declined June 04, 2025 8:27am GERD without esophagitis June 04 8:27am Gout June 04, 2025 8: 27am HTN (hypertension) June 04, 2025 8: 27am Hyperlipidemia LDL goal <100 May 8:27am Obesity June 04, 2025 8: 27am Prostate cancer screening June 04 025 8:27am Allergies, Adverse Reactions, Alerts Allergen Type Severity Reaction Last Updated Verified Status Penicillins Allergy Unknown hives July 10:30am Yes Active sulfamethoxazole Allergy Unknown Rash August 25, 2024 10:30am Yes Active trimethoprim Allergy Unknown Rash July 10:30am Yes Active Social History Smoking Status Status Start Date End Date Date of Observa tion Never smoked tobacco (finding) April 15, 2024 10:32am Observation Status Observation Response Date of Response Legal Sex Male (finding) Sex Assigned At BirthMaleMay 1954 Family History Relationship Condition Age at Onset Recorded Date/T jez father Heart disease Unknown DeceasedUnknownHypertensionUnknownmotherHypertensionUnknownDeceasedUnknownHeart diseaseUnknown Problems Active Problems Medical Problem Onset Date Status UTI (urinary tract infection) Unknown Ac tive Colon cancer screening declined Unknown Active Prostate cancer screening Unknown Active Hx of prostatitis Unknown Active Gout Unknown Active BPH with urinary obstruction Unknown Act myriam Intermittent palpitations Unknown Active Recurrent UTI Unknown Active Hyperlipidemia LDL goal <100 Unknown Act myriam GERD without esophagitis Unknown Active Viral URI Unknown Active History of kidney stones Unknown Active HTN (hypertension) Unknown Active Obesity Unknown Active Hypokalemia Unknown Active Medications Medication Status Dose Units Route Directions Qty Days St art Date Stop Date End Date Instructions Adherence Ciprofloxacin Hcl (Cipro) 500 mg tablet Discontinued 500 MG PO Twice daily 10 August 27, 2024 1:00am May 31, 2025 6:15pmPotassium Chloride 20 mEq tablet extended release Glxipucwiejc72VZBERAyotv 48 hoursAugust 2023 12:00amDecember 2023 10:32amLosartan-Hydrochlorothiazide 100-25 mg wapizuWokjfubhilas7XVLTIFtohy April 15, 2024 12:00amDecember 2023 10:31amCarvedilol 25 mg tablet Xkewvzrbgbsy98XTSEOfnmXknyfl 18th, 2024 12:00amDecember 2023 10:31am Losartan 100 mg nvmrmwBrqxidpmrqxe056LLFXLnuzlLvtyhuzw 28th, 2024 1:00amOctober 2024 6:17pmAmlodipine 5 mg qtokdgSxouqvsxedof0GZJIHlzswXcrwqesa 28th, 2024 1:00amOctober 2024 9:13amAtorvastatin 40 mg uqcdiqPngnaohtqgbc11KFPSUizjf August 25, 2024 1:00amOctober 2024 9:12amCephalexin 500 mg capsule Qwqlbxdsjsqh987AYCJCpeyq nnqvy552SjhrnnisAugust 25, 2024 1:00amOct2024 6:15pmCarvedilol 25 mg ezvrdwLvfhxzhfrhlb87VSNHNtagk 12 hoursOct2024 12:00amOct2024 8:52ammust administer with a meal/foodCetirizine 10 mg kobzfiVpfuyvuznjjq97KKCVMayoh as neededMay 31, 2025 12:00amOct2024 8:52amLosartan-Hydrochlorothiazide 100-25 mg bgvbapUbomuuxvoewi6BVCTQXkqxb May 31, 2025 12:00amOct2024 9:13amFluticasone Propionate (Flonase Allergy Relief) 50 mcg/actuation spray,itdwocekueSnyzuqoyljvl5LBZBGGJNAVJTJFZ DailyMay 31, 2025 12:00amOct2024 8:52amadminister into each nostrilTamsulosin 0.4 mg capsuleActive0.4MGPODaily at bedtime as neededJune 04, 2025 12:00amComplies with drug therapyPantoprazole 40 mg tablet,delayed release (DR/EC)Jkxgkx24MRTTYqnxb as needed for gerdJune 04, 2025 12:00am Complies with drug therapyMagnesium Citrate,Mag Oxide 250 mg capsuleActiveMGPO June 04, 2025 12:00amComplies with drug therapyAtorvastatin 40 mg tablet Wrdrawljjwth46MCWRSjuvk at bedtimeJune 04, 2025 9:12amOct2024 9:13amAtorvastatin 40 mg kjorglWnyuxv56CVTUQwmzr at enrucsd56KgqhsadJune 04, 2025 9:12amComplies with drug therapyLosartan-Hydrochlorothiazide 100-25 mg tablet Rcbhut5KPWPCLvttn70Xtribrv 7th, 2025 9:12amComplies with drug therapyAmlodipine 5 mg tvwkadJubtze71TOZDXzzowHiwopuj 7th, 2025 9:13amComplies with drug therapy Vital Signs Vital Reading Result Reference Range Collection Date/Time Height 72 [in_i] June 04, 2025 8:79qbEqwygz593.39 kgJune 04, 2025 8:38amBody Temperature 98.3 [degF]97.6-99.0June 04, 2025 8:38amHeart Rate79 /nuq12-164Geucwip 7th, 2025 8:38amRespiratory rate20 /dgc15-34CipcglfJune 04, 2025 8:38amOxygen saturation by Pulse ipxuekjc75 %95-100Oct2024 8:38amBP Kebybutv121 mm[Hg]100-140 June 04, 2025 8:49amBP Ygpdzjivn80 mm[Hg]60-100Oct2024 8:49amBMI (Body Mass Index)37.2 kg/n2PcfymbpJune 04, 2025 8:38am Advance Directives Advance Directive Response Recorded Date/ Time Advance Directives No April 15, 2024 10:18am Insurance Providers Guarantor Ramiro Orr Address [address] [place] [address] [place] [address]Mekeegv Info.Home Phone: Payer Policy Id Subscriber's Name Subscriber Id Effectiv e Date Expiration Date Medicare [id number] Ramiro Orr [id number] [facility] [id number] R [id number] Encounters Encounter Location(s) Arrival/Admit Date Discharge/Depart Date Provider(s) Departed Physician/Prov ider Office Visit -[facility] Family Medicine Jar[place] June 04, 2025 8:27am June 04, 2025 9:31am DANIEL Gastelum Recent Diagnosis Onset Date Admit Date BPH with urinary obstruction Unknown May 8:27am Colon cancer screening declined Unknown June 04, 2025 8:27am GERD without esophagitis Unknown June 04, 2025 8:27am Gout Unknown June 04 8:27am HTN (hypertension) Unknown June 04, 2025 8:27am Hyperlipidemia LDL goal <100 Unknown May 8:27am Obesity Unknown June 04 8:27am Prostate cancer screening Unknown 2024 8:27am Assessments Diagnosis Onset Date Resolution Status Admit Date BPH with urinary obstruction acuteJune 04, 2025 8:27amColon cancer screening declinedacuteJune 04, 2025 8:27amGERD without esophagitisacuteJune 04, 2025 8:27amGoutacuteOct2024 8:27amHTN (hypertension)acuteOctober 2024 8:27amHyperlipidemia LDL goal <100acuteOctober 2024 8:27amObesityacuteOctober 2024 8:27am [facility] 8:27am Plan of Treatment Author Atiya Zimmerman [facility]Auth[facility] 20[facility] 9:12amPlease check blood pressure daily and record DASH diet Limit caffeine Take medication as directed Contact office if chest pain, pressures, dizziness, shortness of breath, swelling in the legs Recommend slow position changes if you develop dizziness with position changes current meds: amlodipine, losartan HCTZ we will increase amlodipine to 10mg daily, they have plenty at home they will double up fu in about 8 weeks no statin use recommend low fat diet, decrease consumption of processed foods Recommendations: freq small meals, nothing to eat or drink at least 2 hours prior to bed, limit caffeine, alcohol, as well as spicy foods. Meds to limit or avoid if possible: NSAIDS Elevate the HOB if possible no current med use prn use of PPI no medication use for this on daily basis does have flomax prn no current meds check labs Discussed with patient their BMI (actual vs recommended). We have discussed lifestyle modifications: attempts to perform phsyical activity as chronic conditions allow, monitor dietary intake: increasing protein/fruits/veggies and lowering carb intake (unless contraindicated). Limit sodas, juices, sugary drinks, as well as alcohol consumption. check labs refuses any colon cancer screening Future Tests Future scheduled test information is unavailable Pending Tests Test Name Ordered Date Scheduled Date Comprehensive Metabolic Panel June 04, 2025 5:58am Future Visits Future appointment information is unavailable Referrals to Other Providers Referral information is unavailable Future Procedures Procedure Name Ordered Date Scheduled Date Dipstick and Microscopic June 04, 2025 5:58a m Complete Blood Count Auto DiffOctcumberland [facility] hospital 2024 5:58amLipid PanelOctcumberland county hospital 2024 5:58amMagnesiumOctcumberland county hospital 2024 5:58amPSA Screen (Yearly Only)June 04, 2025 5:58amAMB POC Ur Microalb/Creat RatOctcumberland county hospital 2024 5:58am Future Medications Future medication information is unavailable Patient Instructions Patient instructions are unavailable
--- OUTSIDE RECORDS SUMMARY | 2025-06-18 06:53 | XMS_ITS | Clinical Summary ---
Author Organization [facility] Address [address] [place] [address], [address] [place] [address] Care Team Providers Care Cane Flume Feeding Machine Operator Name Role Phone Unavailable Primary Care Provider Unavailabl e Social History Tobacco UseTypesPacks/DayYears UsedDateSmoking Tobacco: Never AssessedSex and Gender InformationValueDate RecordedSex Assigned at BirthNot on fileLegal Sex Male10/09/2012 9:04 PM ESTGender IdentityNot on fileSexual OrientationNot on file Plan of Treatment Not on file
--- OUTSIDE RECORDS SUMMARY | 2025-06-18 06:53 | XMS_ITS | Clinical Summary ---
Author Organization [facility] Address [address] [facility] [place] [address] Care Team Providers Care House Servant Name Role Phone Cory Hardy MD Primary Care Provider [phone] Annabelle Carter NP Unavailable [phone] Allergies Active AllergyReactionsCriticalityNoted DateComments Sulfamethoxazole-RekodmgxnoucOfrtsGoowbv63/14/2024 Skin peeling PenicillinsShortness of ueathpYitm86/14/2024 Medications MedicationSigDispense QuantityRefillsLast FilledStart DateEnd DateStatus losartan-hydroCHLOROthiazide (Hyzaar) 100-25 MG tablet Indications:Essential hypertensionTake 1 tablet by mouth Daily 90 tablet ctive fluticasone (Flonase) 50 MCG/ACT nasal spray Indications:Viral upper respiratory tract infectionAdminister 1-2 sprays into each nostril Daily Shake gently. Before first use, prime pump. After use, clean tip and replace cap. 16 g ctive cetirizine (ZyrTEC ALLERGY) 10 MG tablet Indications:Viral upper respiratory tract infectionTake 1 tablet (10 mg) by mouth Daily 30 tablet ctive carvedilol (Coreg) 25 MG tablet Indications:Essential hypertensionTake 1 tablet (25 mg) by mouth in the morning and 1 tablet (25 mg) in the evening. Take with meals. 180 tablet 5Active Active Problems ProblemNoted DateDiagnosed DateViral upper respiratory tract wsfoqcikb14/14/2024 Assessment & Plan (06/11/2024 3:25 PM EDT): Discussed likely viral etiology. Rest. Fluids. OTC management. Flonase. Cetirizine. Qpujfpkzlqo53/23/2024 Assessment & Plan (2024 10:29 AM EDT): Uses potassium intermittently. C/w same. Gastroesophageal reflux disease without qqldvvdudwk84/23/2024 Assessment & Plan (2024 10:29 AM EDT): Uses protonix every now and then. Symptoms respond well to it. He does not have daily symptoms. BPH with urinary qusjezxlrzb51/21/2024 Assessment & Plan (2024 10:28 AM EDT): Symptoms well controlled on Alfazosin. Following Urology. Assessment & Plan (10/19/2023 10:23 AM EST): Symptoms well controlled on Alfazosin. Following Urology. Essential lrknzutsenac63/21/2024 Assessment & Plan (2024 10:29 AM EDT): BP well controlled. On average less than 130/90. Tolerating Anti hypertensive w/o adverse effects. C/w Coreg, losartan-hydrochlorothiazide. Assessment & Plan (10/19/2023 10:23 AM EST): BP well controlled. On average less than 130/90. Tolerating Anti hypertensive w/o adverse effects. Denies lightheadedness, dizziness, syncope, presyncope. Patient encouraged to continue with home BP monitoring and call office if he experiences orthostatic symptoms or persistently elevated BP. C/w Coreg, losartan-hydrochlorothiazide. Recent labs reviewed, results discussed. Gout10/19/2023History of kidney ckzzfu3010/19/2023History of udkfrezycvi17/21/2024 Hyperlipidemia LDL goal <9667910/19/2023 Assessment & Plan (2024 10:30 AM EDT): On Lipitor 20. TAG elevated but LDL at goal. C/w same dose Recommend weight loss. Assessment & Plan (10/19/2023 10:24 AM EST): Lipid panel 10/22 - LDL less than 70 but TAGs were above 300 On Lipitor 20 mg. Intermittent clxnyrxuwqnp39/21/5944Qbfyldb55/21/2024ecurrent UTI10/19/2023 Immunizations ImmunizationAdministration DatesNext DueInfluenza, High-dose Seasonal, Quadrivalent, Preservative Free05/30/2023,06/17/2022,05/15/2021Influenza, recombinant, quadrivalent, injectable, preservative free06/27/2019Influenza, seasonal, cogadzamct57/01/2021neumococcal, Ywtdatpwzvo96/23/2023Zoster, Pfamjpotvxe93/04/2023,05/30/2023 Family History Medical HistoryRelationNameCommentsHeart diseaseFatherHypertensionFather HypertensionMotherHypertensionSisterRelationNameStatusCommentsFatherMotherSister Social History Tobacco UseTypesPacks/DayYears UsedDateSmoking Tobacco: NeverPassive Smoke Exposure: NeverSmokeless Tobacco: Never Tobacco Cessation:Counseling Given: No Alcohol UseStandard Drinks/WeekCommentsNever0 (1 standard drink = 0.6 oz pure alcohol)caffeine: 3-4 cups per day 3 16oz bottles daily, soda/popPHQ-2AnswerDate RecordedPatient Health Questionnaire-2 Vtnew827Sex and Gender InformationValueDate RecordedSex Assigned at BirthNot on fileLegal SexMale 11/10/2022 7:00 PM EDTGender IdentityNot on fileSexual OrientationNot on file Last Filed Vital Signs Vital SignReadingTime TakenCommentsBlood Sfpdggvu092/8206/11/2024 2:13 PM EDT Gdjdr773606/11/2024 2:13 PM KSBBwfqcwzsyny24.6 ??C (97.8 ??F)06/11/2024 2:13 PM EDTRespiratory Jbbe283809/11/2022 9:11 AM ESTOxygen Saturation--Inhaled Oxygen Concentration--Eqbnbo268 kg (264 lb)06/11/2024 2:13 PM BZAPhyccr282.9 cm (6') 2024 9:05 AM EDTBody Mass Index35.805 9:05 AM EDT Plan of Treatment Health MaintenanceDue DateLast DoneCommentsCT Poymuasurakh1956olonoscopy 1956olorectal Cancer Cfijevjvp1956FIT-DNA1956FIT1956 FOBT1955 2717Xqocxtbctkviy1956Pneumococcal Vaccine: 65+ Years (1 of 1 - PCV)Influenza Vaccine (#1), 06/17/2022, 05/29/2021, Additional history exists Insurance Care Teams Team MemberRelationshipSpecialtyStart DateEnd Date Cory Hardy MD PCP - GeneralFamily Medicine05/22/24 Annabelle Carter NP Nurse PractitionerFamily Medicine05/22/24
--- OUTSIDE RECORDS SUMMARY | 2025-06-18 06:53 | XMS_ITS | Clinical Summary ---
Author Organization [facility] Address [address] [place] [id number] Phone Care Team Providers Care Shirt Marker Name Role Phone Shaikh KYRA De La Vega Primary Care Provider [phone] Social History Tobacco UseTypesPacks/DayYears UsedDateSmoking Tobacco: Never AssessedSex and Gender InformationValueDate RecordedSex Assigned at BirthNot on fileLegal Sex Male07/23/2022 10:59 PM ESTGender IdentityNot on fileSexual OrientationNot on file Last Filed Vital Signs Vital SignReadingTime TakenCommentsBlood Hktzvsfu073/8608 8:12 AM EDT Dxhhf122503/29/2022 8:09 AM EDTTemperature--Respiratory Rate--Oxygen Saturation-- Inhaled Oxygen Concentration--Pbvwje025 kg (266 lb 12.8 oz)03/29/2022 8:09 AM QEXVliqsg144.9 cm (6')03/29/2022 8:09 AM EDTBody Mass Index36.1808 8:09 AM EDT Plan of Treatment Not on file Care Teams Team MemberRelationshipSpecialtyStart DateEnd Date Shaikh De La Vega MD PCP - General03/29/22
--- OUTSIDE RECORDS SUMMARY | 2025-06-18 06:53 | XMS_ITS | Clinical Summary ---
Author Organization [facility] [place] [address] Care Team Providers Care Cook Restaurant Name Role Phone Shaikh KYRA De La Vega Primary Care Provider [phone] Social History Tobacco UseTypesPacks/DayYears UsedDateSmoking Tobacco: Never AssessedChildcare AnswerDate PwefyvdbVrueqolciJrtjkol48/12/2019EmploymentAnswerDate Recorded RlzltpftszJikuadt45/12/2019Purpose - LifeAnswerDate RecordedPurpose and direction in zezoLcqbiwu95/11/2021Sex and Gender InformationValueDate Recorded Sex Assigned at BirthNot on fileLegal NmbLlwg4704/03/2015 11:44 AM EDTGender IdentityNot on fileSexual OrientationNot on file Plan of Treatment Health MaintenanceDue DateLast DoneCommentsDepression Tmycysypp65/23/1968Tobacco Jjpiblvwt45/23/1968Adult BMI Uwyuzrxcu82/23/1974DTaP,Tdap and Td Vaccines (1 - Tdap)01/18/1975Zoster (Shingles) Vaccine (1 of 2)01/18/2006Fall Risk Screening 01/18/2021Influenza Tbfitbw6504/29/2025 Medical Devices Not on file Insurance Care Teams Team MemberRelationshipSpecialtyStart DateEnd Date Shaikh De La Vega MD PCP - GeneralInternal Medicine03/09/22
--- OUTSIDE RECORDS SUMMARY | 2025-06-18 06:54 | XMS_ITS | CCD ---
Author Organization [facility] CliniSyid Care Team Providers Care Director Of Materials Name Role Phone Ceferino, Siu Unavailable Unavailable Unavailable Farhana Polo Unavailable Haley Verdin Unavailable Terry Oconnor II Referring Unavailable Helene ASKEW, Terry Attending Unavailable HELENE ASKEW, Dr. SALOMON Attending Unavaila ble HELENE ASKEW, Dr. SALOMON Referring Unavaila ble MARKIEWWAD, SIU Primary Care Physician CEFERINO, SIU H Attending Unavailable FAWWAD, SIU H Admitting Unavailable FAWWAD, SIU H Consulting Unavailable FAWWAD, SIU H Primary Care Unavailable FAWWAD, SIU H Admitting Unavailable FAWWAD, SIU H Attending Unavailable FAWWAD, SIU H Consulting Unavailable FAWWAD, SIU H Primary Care Unavailable FAWWAD, SIU H Admitting Unavailable FAWWAD, SIU H Attending Unavailable FAWWAD, SIU H Consulting Unavailable FAWWAD, SIU H Primary Care Unavailable ALMA Nguyen, DR WEBB Consulting Unavailable ALMA ., DR WEBB Admitting Unavailable ALMA Nguyen, DR WEBB Attending Unavailable FAWWAD, SIU H Primary Care Unavailable AICHHOLZ, ADMINISTRATOR [facility] TAIYA Admitting Unavailable AICHHOLZ, ADMINISTRATOR [facility]AC[facility] ATIYA Attending Unavailable AICHHOLZ, ADMINISTRATOR [facility] FACILITY ATIYA Consulting Unavailable FAWWAD, SIU H Primary Care Unavailable FAWWAD, SIU H Attending Unavailable FAWWAD, SIU H Admitting Unavailable FAWWAD, SIU H Consulting Unavailable FAWWAD, SIU H Primary Care Unavailable DR SIMONE CALIX Consulting Unavailable FAWWAD, SIU H Attending Unavailable FAWWAD, SIU H Admitting Unavailable FAWWAD, SIU H Primary Care Unavailable FAWWAD, SIU H Consulting Unavailable FAWWAD, SIU H Primary Care Unavailable FAWWAD, SIU H Admitting Unavailable FAWWAD, SIU H Attending Unavailable FAWWAD, SIU H Consulting Unavailable FAWWAD, SIU H Attending Unavailable FAWWAD, SIU H Admitting Unavailable FAWWAD, SIU H Consulting Unavailable FAWWAD, SIU H Primary Care Unavailable Fawwad Shaikh RAE Primary Care Provider [phone] Cory Hardy MD Primary Care Provider Kranthi Carter NP Unavailable [phone] FAWWAD, SIU Attending Unavailable FAWWAD, SIU Attending Unavailable KRANTHI CARTER Attending Unavailabl e Ari Garcia Primary Care Physician Jon MARQUEZ Attending Unavailable Jon MARQUEZ Attending Unavailable FAWWAD, SIU Primary Care Unavailable Jose, Ari E. Admitting Unavailable Jose, Ari E. Attending Unavailable Penny Orantes Admitting Unavailable Ross, Ari E. Attending Unavailable Jose Ari EPatrick Attending Unavailable Jose Ari EPatrick Attending Unavailable Jose, Ari E. Admitting Unavailable Ross, Ari E. Admitting Unavailable Jose, Ari E. Attending Unavailable Jose, Ari E. Admitting Unavailable Ross, Ari E. Attending Unavailable NO FAMILY, PHYSICIAN Primary Care Unavailable Álvaro, Gail M Attending Unavailable Álvaro, Gail M Admitting Unavailable Ross, Ari E. Attending Unavailable Jose Ari E. Attending Unavailable Jose, Ari E. Admitting Unavailable Ross, Ari E. Admitting Unavailable Ross, Ari E. Attending Unavailable Jose, Ari E. Attending Unavailable Jose, Ari E. Attending Unavailable Jose Ari E. Attending Unavailable Jose Ari EPatrick Attending Unavailable Atiya Nguyen Primary Care Provider [phone] Atiya Nguyen Attending Provider [phone] Allergies Allergy ClassificationReported Allergen(s)Allergy TypeDate of OnsetReaction(s) Facility (16 sources)Penicillins; Translations: [Penicillins]Allergy to drug (finding) 85-86-2192Zcghelytpw breathing (finding)[facility] (2 sources)Penicillin VDrug AllergyhiInfinite [facility]Leg[facility] Other (1 source)PenicillinDrug AllergyhiInfinite EnzymesLegacy Health [facility] Other (14 sources)Sulfamethoxazole / Trimethoprim; Translations: [sulfamethoxazole-trimethoprim]Drug Ygpqkog40-05-9496Uhfb irritation (disorder), Other[facility] (3 sources)Sulfamethoxazole; Translations: [sulfamethoxazole]Drug Allergy 23-92-6420HcfzKjxboqzyiKing[facility] (3 sources)Trimethoprim; Translations: [trimethoprim]Drug Ukawfpz40-18-9205UdvrJ.[facility]. [facility] (6 sources)PenicillinsDrug Fuvgnks03-53-2357Bjvwemxbc of [facility] (1 source)PenicillinsDrug allergy (disorder)07-76-2581BtvnvgcrmOhio Valley Surgical [facility] Rep[facility] Medications Current Medications MedicationDrug Class(es)DatesSig (Normalized)Sig (Original)Allopurinol (4 sources)Xanthine Oxidase InhibitorStart: 33-27-8233gzaesuagyzj 300 mg, Refills(s) 0 Start Date: 10/29/22 Status: OrderedStart: 23-01-8509axacquzisiw Refills(s) 0 Start Date: 10/29/22 Status: Orderedtake 1 tablet by mouth every twenty-four hoursAllopurinol 300 MG 1 tablet Orally Once a day ActiveamLODIPine 5 mg oral tablet (6 sources)Dihydropyridine Calcium Channel BlockerStart: 70-21-8325rghw 2 tablets by mouth once dailyAmlodipine 5 mg tablet Active 10 MG PO Daily June 04, 2025 9:13am Complies with drug therapyStart: 08-25-2024 End: 49-10-4908xhcy 1 tablet by mouth once dailyAmlodipine 5 mg tablet Discontinued 5 MG PO Daily August 25, 2024 1:00am June 04, 2025 9:13am Start: 23-20-1235ojnj 1 tablet by mouth once dailyNorvasc 5 mg Tab 5 mg = 1 tab(s), Oral, Daily, # 90 tab(s), Refills(s) 0, Pharmacy: [facility] [id number], 180.3, cm, 07/23/24 10:11:00 EST, Height/Length Dosing, 124.1, kg, 07/23/24 10:11:00 EST,Weight Dosing Start Date: 07/23/24 Status: OrderedStart: 95-80-2527uxel 1 tablet by mouth once dailyNorvasc 5 mg Tab 5 mg = 1 tab(s), Oral, Daily, # 90 tab(s), Refills(s) 0, Pharmacy: [facility] [id number], 180.5, cm, 07/09/24 9:56:00 EST, Height/Length Dosing, 121.8, kg, 07/09/24 9:56:00 EST, Weight Dosing Start Date: 07/09/24 Status: OrderedStart: 01-10-2023 amLODIPine 5 mg Tab Refills(s) 0 Start Date: 01/10/23 Status: OrderedAtenolol (2 sources)beta-Adrenergic BlockerStart: 05-67-2450ttrpdzhg 100 mg, Refills(s) 0 Start Date: 10/29/22 Status: OrderedStart: 26-88-0116pvqbfwct Refills(s) 0 Start Date: 10/29/22 Status: Orderedbenzonatate 100 mg oral capsule (2 sources)Non-narcotic AntitussiveStart: 06-11-2024 End: 01-03-5907reuh 1 capsule by mouth three times daily as needed for cough benzonatate (Tessalon Perles) 100 MG capsule Indications: Viral upper respiratory tract infection Take 1 capsule (100 mg) by mouth 3 (three) times a day as needed for cough for up to 7 days Do not crush or chew. 20 capsule 06/11/2024 06/18/2024 Activefamotidine 40 mg oral tablet (5 sources)Histamine-2 Receptor AntagonistStart: 18-93-9208uyosysnyww 40 mg Tab Refills(s) 0 Start Date: 5/15/23 Status: OrderedStart: 23-73-2425dbga 1 tablet by mouth once dailyFamotidine 40 MG Oral Tablet TAKE 1 TABLET DAILY. Quantity: 90 Refills: 3 Ordered: 23-Apr-2022 Terry Oconnor MD Start : 23-Apr-2022 ActiveFamotidine Not-TakingFamotidine ActivehydroCHLOROthiazide 25 mg / losartan potassium 100 mg oral tablet (11 sources)Thiazide Diuretic, Angiotensin 2 Receptor BlockerStart: 05-31-2025 End: 92-42-4160jtmd 1 tablet by mouth once dailyLosartan-Hydrochlorothiazide 100-25 mg tablet Active 1 TAB PO Daily June 04, 2025 9:12am Complies with drug therapyStart: 2024 End: 87-91-6937ufdy 1 tablet by mouth once dailyLosartan-Hydrochlorothiazide 100-25 mg tablet Discontinued 1 TAB PO Daily April 15, 2024 12:00amDecember 2023 10:31amMagnesium Citrate,Mag Oxide 250 mg capsule (1 source)Start: 82-05-3631Rpqhxnfyv Citrate,Mag Oxide 250 mg capsule Active MG PO June 04, 2025 12:00am Complies with drug therapyofloxacin 3 mg/ml ophthalmic solution (1 source)Quinolone AntimicrobialStart: 11-20-2929Pwourunjk 0.3 % 10 drops into affected ear Otic Once a day for 7 day(s) Feb, Activepantoprazole 40 mg delayed release oral tablet (7 sources)Proton Pump InhibitorStart: 14-41-7763vlop 1 tablet by mouth once daily as needed for gastroesophageal reflux diseasePantoprazole 40 mg tablet,delayed release (DR/EC) Active 40 MG PO Daily as needed for gerd June 04, 2025 12:00am Complies with drug therapyStart: 2024 End: 31-81-4272zdhx 1 tablet by mouth before mealtimepantoprazole (ProtoNix) 40 MG EC tablet Indications: Gastroesophageal reflux disease without esophagitis Take 1 tablet (40 mg) by mouth in the morning. Take before meals. 90 tablet 1 2024 06/11/2024 Discontinued (Therapy completed)Start: 07-29-[address] Tab Refills(s) 0 Start Date: 07/29/23 Status: Ordered Paxlovid (300/100) 20 x 150 MG & 10 x 100MG (1 source)Paxlovid (300/100) 20 x 150 MG & 10 x 100MG as directed Orally twice daily for 5 days Activesulfamethoxazole 800 mg / trimethoprim 160 mg oral tablet (1 source)Dihydrofolate Reductase Inhibitor Antibacterial, Sulfonamide AntimicrobialStart: 49-85-2778psoy 1 tablet by mouth twice dailyBactrim D.S. 800 mg-160 mg Tab 1 tab(s), Oral, BID, 42 tab(s), Refill(s) 0, [facility] [id number], 184, cm, 10/29/22 9:27:00 EST, Height/Length Dosing, 122, kg, 10/29/22 9:27:00 EST, Weight DosingStart Date: 10/29/22 Status: Orderedtamsulosin hydrochloride 0.4 mg oral capsule (1 source)alpha-Adrenergic BlockerStart: 16-07-6934wczn 1 capsule by mouth once daily at bedtime as neededTamsulosin 0.4 mg capsule Active 0.4 MG PO Daily at bedtime as needed June 04, 2025 12:00am Complies with drug therapy Completed/Discontinued Medications MedicationDrug Class(es)DatesSig (Normalized)Sig (Original)24 hr alfuzosin hydrochloride 10 mg extended release oral tablet (9 sources)alpha-Adrenergic BlockerStart: 2024 End: 53-69-3670ygyo 1 tablet by mouth once dailyalfuzosin ER (Uroxatral) 10 MG 24 hr tablet Indications: BPH with urinary obstruction Take 1 tablet(10 mg) by mouth Daily 90 tablet 1 2024 06/11/2024 Discontinued (Therapy completed) Start: 98-12-5978vvtg 1 tablet by mouth once dailyalfuzosin 10 mg ER Tab 10 mg = 1 tab(s), Oral, Daily, # 90 tab(s), Refills(s) 3, Pharmacy: [facility] [id number], 184, cm, 07/29/23 8:36:00 EST, Height/Length Dosing, 122.5, kg, 07/29/23 8:36:00 EST, Weight Dosing Start Date: 07/29/23 Status: OrderedStart: 03-54-7934tcts 1 tablet by mouth once dailyalfuzosin 10 mg ER Tab 10 mg = 1 tab(s), Oral, Daily, # 30 tab(s), Refills(s) 11, Pharmacy: [facility] [id number], 184, cm, 10/29/22 9:27:00 EST, Height/Length Dosing, 122, kg, 10/29/22 9:27:00 EST, Weight Dosing Start Date: 10/29/22 Status: OrderedAtenolol / Chlorthalidone (7 sources)Thiazide-like Diuretic, beta-Adrenergic BlockerAtenolol- Chlorthalidone Ucm-SxhigfYaujrobg-Xjzzxypkdhbemc Activetake 1 tablet by mouth once dailyAtenolol-Chlorthalidone 100-25 MG Oral Tablet TAKE 1 TABLET DAILY. Quantity: 0 Refills: 0 Ordered: 29-Mar-2022 DO Activeatorvastatin 40 mg oral tablet (18 sources)HMG-CoA Reductase InhibitorStart: 08-25-2024 End: 69-55-4492zuee 1 tablet by mouth once daily at bedtimeAtorvastatin 40 mg tablet Discontinued 40 MG PO Daily at bedtime June 04, 2025 9:12am June 04, 2025 9:13amStart: 03-26-2024 End: 60-83-8873ruda 1 tablet by mouth once dailyatorvastatin (Lipitor) 20 MG tablet Indications: Hyperlipidemia LDL goal Take 1 tablet (20 mg) by mouth Daily 90 tablet 1 03/26/2024 06/11/2024 Discontinued (Patient refused)Start: 76-69-7122kveqawgtooar 20 mg, Refills(s) 0 Start Date: 10/29/22 Status: Ordered Start: 30-57-4420sehaljzkqwby Refills(s) 0 Start Date: 10/29/22 Status: Ordered Atorvastatin Calcium Activetake 1 tablet by mouth at bedtimeAtorvastatin Calcium 20 MG Oral Tablet TAKE 1 TABLET AT BEDTIME. Quantity: 0 Refills: 0 Ordered: DO Activecarvedilol 25 mg oral tablet (12 sources)alpha-Adrenergic Brooke, beta-Adrenergic BlockerStart: 05-31-2025 End: 88-50-0396humy 1 tablet by mouth every twelve hours at mealtimeCarvedilol 25 mg tablet Discontinued 25 MG PO Every 12 hours May 31, 2025 12:00am May 8:52am must administer with a meal/foodStart: 04-15-2024 End: 14-50-6242gjic 1 tablet by mouth onceCarvedilol 25 mg tablet Discontinued 25 MG PO Once April 15, 2024 12:00am August 25, 2024 10:31amStart: 2024 End: 28-70-9196uiab 1 tablet by mouth in the morningcarvedilol (Coreg) 25 MG tablet Indications: Essential hypertension (CMS/HCC) Take 1 tablet (25 mg)by mouth in the morning and 1 tablet (25 mg) in the evening. Take with meals. 180 tablet 1 09/18/2024 03/17/2025 ActiveStart: 71-98-3486kjfqsffkud 25 mg Tab Refills(s) 0 Start Date: 07/29/23 Status: Orderedtake 1 tablet by mouth every twelve hoursCarvedilol 12.5 MG 1 tablet with food Orally Twice a day Active cephalexin 500 mg oral capsule (1 source)Cephalosporin AntibacterialStart: 08-25-2024 End: 51-42-7188wghh 1 capsule by mouth twice dailyCephalexin 500 mg capsule Discontinued 500 MG PO Twice daily 11 03August 25, 2024 1:00am May 31, 2025 6:15pmcetirizine hydrochloride 10 mg oral tablet (4 sources)Histamine-1 Receptor AntagonistStart: 06-11-2024 End: 07-04-8620ohzx 1 tablet by mouth once daily as neededCetirizine 10 mg tablet Discontinued 10 MG PO Daily as needed May 31, 2025 12:00am June 04, 2025 8:52amciprofloxacin 500 mg oral tablet (1 source)Quinolone AntimicrobialStart: 08-27-2024 End: 51-38-0030rbjf 1 tablet by mouth twice dailyCiprofloxacin Hcl (Cipro) 500 mg tablet Discontinued 500 MG PO Twice daily 10 August 2741:00am May 31, 2025 6:15pmfluticasone propionate 0.05 mg/actuat metered dose nasal spray (4 sources)CorticosteroidStart: 05-31-2025 End: 38-97-8244nqut 1 spray(s) nasal route once dailyFluticasone Propionate (Flonase Allergy Relief) 50 mcg/actuation spray,suspension Discontinued 2 SPRAY INTRANASAL Daily May 31, 2025 12:00am June 04, 2025 8:52am administer into each nostrilStart: 06-11-2024 End: 14-94-3116kgms 1-2 spray(s) nasal route once dailyfluticasone (Flonase) 50 MCG/ACT nasal spray Indications: Viral upper respiratory tract infection Ad occupational health and safety manager 1-2 sprays into each nostril Daily Shake gently. Before first use, prime pump. After use, clean tip and replace cap. 16 g 2 06/11/2024 06/11/2025 Activelosartan potassium 100 mg oral tablet (8 sources)Angiotensin 2 Receptor BlockerStart: 08-25-2024 End: 23-64-7602skrv 1 tablet by mouth once dailyLosartan 100 mg tablet Discontinued 100 MG PO Daily August 25, 2024 1:00am May 31, 2025 6:17pm Start: 24-89-9833pdct 1 tablet by mouth once dailylosartan 100 mg Tab 100 mg = 1 tab(s), Oral, Daily, # 90 tab(s), Refills(s) 0, Pharmacy: [facility] [id number], 180.3, cm, 07/23/24 10:11:00 EST, Height/Length Dosing, 124.1, kg, 07/23/24 10:11:00EST, Weight Dosing Start Date: 07/23/24 Status: OrderedStart: 86-23-5056homj 1 tablet by mouth once dailylosartan 100 mg Tab 100 mg = 1 tab(s), Oral, Daily, # 90 tab(s), Refills(s) 0, Pharmacy: [facility] [id number], 180.5, cm, 07/09/24 9:56:00 EST, Height/Length Dosing, 121.8, kg, 07/09/24 9:56:00 EST, Weight Dosing Start Date: 07/09/24 Status: OrderedStart: 85-64-3126sljsdbtv 100 mg, Refills(s) 0 Start Date: 10/29/22 Status: OrderedStart: 70-84-8366aezyyhch Refills(s) 0 Start Date: 10/29/22 Status: Orderedtake 1 tablet by mouth every twenty-four hoursLosartan Potassium 100 MG 1 tablet Orally Once a day Activepotassium chloride 20 meq extended release oral tablet (15 sources)Start: 04-15-2024 End: 61-17-2431Ueozkfsxn Chloride 20 mEq tablet extended release Discontinued 20 MEQ PO Every 48 hours April 15, 2024 12:00am August 25, 2024 10:32am Start: 2024 End: 30-64-8466qodi 1 tablet by mouth once dailypotassium chloride CR (K-Tab) 20 MEQ ER tablet Indications: Hypokalemia Take 1 tablet (20 mEq) by mouth Daily 90 tablet 1 2024 07/17/2024 ActiveStart: 24-46-4414Xunpqzhht Chloride (Eqv-K-Tab) 20 mEq oral tablet, extended release Refills(s) 0 Start Date: 07/29/23 Status: OrderedKlor-Con M20 20 MEQ Oral for 90 Days Not-TakingpredniSONE 10 mg oral tablet (2 sources)Start: 71-05-1216iadf 3 tablets by mouth every twenty-four hours prednisone 10 MG 3 tablets Orally daily for 5 days Apr, Not-Taking Problems Active Problems Problem ClassificationProblemDateDocumented DateEpisodic/ChronicCalculus of urinary tract (16 sources)History of calculus of kidney; Translations: [Personal history of urinary calculi]Onset: 27-82-7721CqihauxdOuszlue dysrhythmias (5 sources)Ventricular premature beats; Translations: [Other premature beats] Onset: 63-94-0504WecqnseZslxadk dysrhythmias (17 sources)Intermittent palpitations; Translations: [Palpitations]Onset: 963258-19-8410BshjmvojWakmsqylx of lipid metabolism (14 sources)Hyperlipidemia; Translations: [Other and unspecified hyperlipidemia] Onset: 236861-38-3814EzfuhxvLiwusvbndu disorders (8 sources)Gastroesophageal reflux disease without esophagitis; Translations: [Gastro-esophageal reflux disease without esophagitis]Onset: 2024 63-08-1282VhznfutWdrnurntv hypertension (20 sources)Hypertensive disorder; Translations: [Unspecified essential hypertension]Onset: 672018-14-3178OpmulniQhkgo and electrolyte disorders (16 sources)Hypokalemia; Translations: [Hypokalemia]Onset: 37-01-3220Hafpvqcj Genitourinary symptoms and ill-defined conditions (5 sources)Unspecified symptoms and signs involving the genitourinary system; Translations: [Dysuria]Onset: 70-38-0243UxqbmhbpEjzp and other crystal arthropathies (20 sources)Gout; Translations: [Gout, unspecified]Onset: 59-95-5585Ylvcnhg Hyperplasia of prostate (20 sources)Benign prostatic hypertrophy with outflow obstruction; Translations: [Benign prostatic hyperplasia with lower urinary tract symptoms]Onset: 69-91-1564AntopwpKovwiwitkzshe and screening for infectious disease (6 sources)Patient encounter status; Translations: [Other specified vaccination] Resolved: 934708-22-5941GdzsvpvxNgldhelvhrlu conditions of male genital organs (7 sources)Prostatitis; Translations: [Inflammatory disease of prostate, unspecified]Onset: 79-15-6825NuoiavrbCgymkozmzkj chest pain (5 sources)Chest pain; Translations: [Other chest pain]Onset: 51-87-5975Kgbrozcp Other ear and sense organ disorders (1 source)Swimmer's ear, right earEpisodicOther ear and sense organ disorders (1 source)Impacted cerumen, right earEpisodicOther male genital disorders (2 sources)H/O: male genital disorder; Translations: [Personal history of other diseases of male genital organs]Onset: 41-81-5407MxkpfktjGgxrb male genital disorders (11 sources)History of prostatitis; Translations: [Personal history of other diseases of male genital organs]Onset: 354657-69-8343TpqwhnfgXsnhi non- traumatic joint disorders (6 sources)Knee hylv90-95-2167TtiljpqwYeaow nutritional; endocrine; and metabolic disorders (18 sources)Obesity; Translations: [Obesity, unspecified]Onset: 10-19-2023 59-15-0090NlovxkpRfhgb nutritional; endocrine; and metabolic disorders (1 source)Obese class II; Translations: [Body mass index (BMI) 36.0-36.9, adult] Onset: 19-64-8985SpexemxZwalc nutritional; endocrine; and metabolic disorders (8 sources)Body mass index 30+ - whuylyn10-62-4752MrgzcboXwzto nutritional; endocrine; and metabolic disorders (1 source)Obesity caused by energy imbalance; Translations: [Other obesity due to excess calories]78-24-8271MhanxvvGjape screening for suspected conditions (not mental disorders or infectious disease) (1 source)Encounter for screening for malignant neoplasm of prostate; Translations: [Screening for malignant neoplasm done]Onset: 27-60-7037Fgpdcidi Other upper respiratory infections (6 sources)Viral upper respiratory tract infection; Translations: [Acute upper respiratory infection, unspecified]Onset: 437600-00-8694OhapohvmZgpdgcpq codes; unclassified (2 sources)Colon cancer screening declined; Translations: [Procedure and treatment not carried out because of patient's decision for unspecified reasons] 74-71-2783JvakpvuaZhkuxaqygqia (4 sources)Patient encounter -08-7940Fiedsbbctetn (3 sources)Dhh--38qgwcji87-97-0754Svnlxuz tract infections (20 sources)Recurrent urinary tract infection; Translations: [Urinary tract infectious disease]Onset: 897075-74-4163Yebhcjyw Past or Other Problems Problem ClassificationProblemDateDocumented DateEpisodic/ChronicOther non- traumatic joint disorders (4 sources)Pain in right knee; Translations: [PAIN IN RIGHT KNEE]Onset: 90-60-1327OdfwavmfUzokjvlzrknq (4 sources)Never smoked tobacco; Translations: [Never a smoker]Unclassified (1 source)Contact with and (suspected) exposure to covid-19 Z20.822Onset: 05-14-2022 Resolved: 06-73-0632Lbiia infection (1 source)COVID-19Onset: 05-14-2022 Resolved: 05-14-2022 Results Test NameValueInterpretationReference RangeFacilityAmbulatory Visit Summaryon 78-96-2047Goiiqeuxhq Visit SummaryAmbulatory Visit Summary SUSANNE GARCIA :1955 Visit Date:01/24/2025 Ambulatory Visit Instructions Your Diagnosis BMI 38.0-38.9,adult Obesity (BMI 30-39.9) Non-smoker Your Care Team Attending Physician - Ari Garcia MD Primary Care Physician - Ari Garcia MD This Is Your Medications List amlodipine (Norvasc 5 mg Tab) atorvastatin (Lipitor 40 mg Tab) losartan (losartan 100 mg Tab) Procedures Performed Foot, Tonsillectomy. Discharge Vitals Temperature (Oral) 36.4 ???C Heart Rate (Peripheral) 76 Respiratory Rate 20 Blood Pressure 124/78 Height 180.3 cm Height 71 in Weight 124.6 kg Weight 274.696 lb BMI 38.33 What to do next Scheduled Follow-Up Appointments Tuesday 8:00 AM EST With: Where: [address] [address]- Tuesday 9:00 AM EST With: Ari Garcia MD Where: [address] [address]- Medications What How Much When Why Instructions Unchanged amlodipine (Norvasc 5 mg Tab) 1 Tablets By Mouth Every day Unchanged atorvastatin (Lipitor 40 mg Tab) 1 Tablets By Mouth Every day HLD (hyperlipidemia) Unchanged losartan (losartan 100 mg Tab) 1 Tablets By Mouth Every day Allergies Bactrim (Skin irritation) penicillins (Difficulty breathing) Problems Ongoing - Any problem that you are currently receiving treatment for. BMI 38.0-38.9,adult BPH with urinary obstruction Gout History of kidney stones History of prostatitis HLD (hyperlipidemia) Hypertension Hypokalemia Intermittent palpitations Nonsmoker Obesity Obesity (BMI 30-39.9) Prostatitis Recurrent UTI Right knee pain Screening PSA (prostate specific antigen) Historical - Any problem that you are no longer receiving treatment for. BMI 37.0-37.9, adult Patient Survey You may receive a survey via text or e-mail asking about your office visit. Please share your experience with us by completing your survey. We appreciate your feedback and thank you for choosing us for your care. [facility] Medicine Office/Clinic Noteon [id number] Medicine Office/Clinic NoteFanew eng[facility] Office/Clinic Note Chief Complaint The patient requests medication refills and plans to review weight management. HPI Staff 6m follow up Patient is here for follow up on hypertension. How often are you checking your blood pressure? every couple weeks What are your average readings? Yearly BMP: _ BUN: 10 mg/dL (07/23/24 11:33:00) Calcium Lvl: 8.7 mg/dL Low (07/23/24 11:33:00) Chloride: 105 mmol/L (07/23/24 11:33:00) CO2: 24 mmol/L (07/23/24 11:33:00) Creatinine: 0.8 mg/dL (07/23/24 11:33:00) eGFR: 96 mL/min/1.73 m2 (07/23/24::00) Glucose Lvl: 101 mg/dL (07/23/24 11:33:00) Potassium Lvl: 3.8 mmol/L (07/23/24 11:33:00) Sodium Lvl: 137 mmol/L (07/23/24 11:33:00) Recommended pt start OTC magnesium supplement. he is taking this he seems this helps Chol: 276 mg/dL High (07/25/24 08:22:00) HDL: 36 mg/dL (07/25/24 08:22:00) LDL Direct: 195 mg/dL High (07/25/24 08:22:00) Tri mg/dL High (07/25/24 08:22:00) VLDL: 65 mg/dL High (07/25/24 08:22:00) Pt started on Norvasc in July. Cardio prescribed pantoprazole 40 mg last time was refilled was 2022 he only takes it once a month for heartburn History of Present Illness - The patient is a 70-year-old male presenting for medication refills and follow-up care related toobesity management. - He has a Body Mass Index (BMI) in the range of 38.0-38.9. - The patient is currently on amlodipine and losartan for hypertension, atorvastatin for hypercholesterolemia, and seeks a refill for pantoprazole for acid reflux. - Previous cholesterol levels were elevated, with a total cholesterol of 276 mg/dL, LDL of 195 mg/dL, and HDL of 36 mg/dL. - The patient reports regular physical activity, including walking two miles in the morning and an additional mile in the afternoon. - Discussed the importance of maintaining physical activity to improve cholesterol levels and weight management. - Recommended monitoring cholesterol levels, aiming to reduce total cholesterol to below 200 mg/dL,LDL to below 120 mg/dL, and increase HDL to above 40 mg/dL. - Reinforced the need for regular exercise to support cardiovascular health and weight management. Review of Systems PHQ Score Initial Depression Screen Score: 0 SCORE Physical Exam Vitals & Measurements T: 36.4 ???C(Oral) HR: 76(Peripheral) RR: 20 BP: 124/78 SpO2: 99% HT: 71 in HT: 180.3 cm WT: 124.6 kg WT: 274.696 lb BMI: 38.33 General: alert, no acute distress ENMT: oral mucosa moist Cardiovascular: Regular rate and rhythm, normal peripheral perfusion Respiratory: Lungs clear to auscultation, respirations non labored Extremities: no deformity, no trauma Neurological: oriented x 4, level of consciousness appropriate for age, CN II- XII intact, motor strength equal & normal bilaterally, speech normal Abdomen: Soft, Non-tender, Non-distended, + Bowel sounds Assessment/Plan 1. BMI 38.0-38.9,adult (Z68.38: Body mass index [BMI] 38.0-38.9, adult) - BMI education added Ordered: pantoprazole, 40 mg = 1 tab(s), Oral, Daily, # 90 tab(s), Refills(s) 0, Pharmacy: [facility] [id number], 180.3, cm, 01/24/25 6:55:00 EDT, Height/Length Dosing, 124.6, kg, 01/24/25 6:55:00 EDT, Weight Dosing Body Mass Index (BMI) documented 3008F Current tobacco non-user 1036F Depression Screening Negative 3352F Influenza immunization status assessed 1030F Medication list documented in medical record 1159F Most recent diastolic blood pressure <80 mm Hg 3078F Patient screen for fall risk: no falls in last year or 1 fall with no injury in last year 1101F Review of all meds by a prescribing practitioner or clinical pharmacist documented in EHR 1160F Systolic BP <130 mm Hg (Most Recent) 3074F 2. Obesity (BMI 30-39.9) (E66.9: Obesity, unspecified) - Monitor weight and encourage continued physical activity. - Emphasize lifestyle modifications for effective weight management. Ordered: pantoprazole, 40 mg = 1 tab(s), Oral, Daily, # 90 tab(s), Refills(s) 0, Pharmacy: [facility] [id number], 180.3, cm, 01/24/25 6:55:00 EDT, Height/Length Dosing, 124.6, kg, 01/24/25 6:55:00 EDT, Weight Dosing Body Mass Index (BMI) documented 3008F Current tobacco non-user 1036F Depression Screening Negative 3352F Influenza immunization status assessed 1030F Medication list documented in medical record 1159F Most recent diastolic blood pressure <80 mm Hg 3078F Patient screen for fall risk: no falls in last year or 1 fall with no injury in last year 1101F Review of all meds by a prescribing practitioner or clinical pharmacist documented in EHR 1160F Systolic BP <130 mm Hg (Most Recent) 3074F 3. Non-smoker (Z78.9: Other specified health status) - please continue to not smoke Ordered: pantoprazole, 40 mg = 1 tab(s), Oral, Daily, # 90 tab(s), Refills(s) 0, Pharmacy: [facility] [id number], 180.3, cm, 01/24/25 6:55:00 EDT, Height/Length Dosing, 124.6, kg, 01/24/25 6:55:00 EDT, Weight Dosing Body Mass Index (BMI) docume (more content not included)...[facility] HospitalComment on above:Result Comment: Electronically Signed By: Jose RAE, Ari Kolb\Date and Time Signed: 01/24/25 07:19 EDTUrine Cultureon [id number] identified Cx Nom (U)ORGANISM: Klebsiella pneumoniae (O:KLEPNE) [place] Count >100,000 Aerobic GEM Charge (NMIC56) SUSCEPTIBILITY ORGANISM: O:KLEPNE ANTIBIOTIC INTERPRETATION GEM Amikacin S <16 Amoxacillin/K Clavulanate S <8 Ampicillin/Sulbactam S 88/4 Aztreonam S <4 Cefazolin S <2 Cefepime S <2 Ceftazidime S <1 Ceftazidime/Avibactam S <4 Ceftolozane/Tazobactam S <2 Ceftriaxone S <1 Cefuroxime S <4 Ciprofloxacin S <0.25 Ertapenem S <0.5 Gentamicin S <2 Levofloxacin S <0.5 Meropenem S <1 Meropenem/Vaborbactam S <2 Nitrofurantoin I 64 Piperacillin/Tazobactam S <8 Tetracycline S <4 Tigecycline S <2 Tobramycin S <2 Trimethoprim/Sulfamethoxazole S <0.5 S = SUSCEPTIBLE I = INTERMEDIATE R = RESISTANT BLANK = DATA NOT AVAILABLE, OR DRUG NOT ADVISABLE OR TESTED R* = RESISTANCE DUE TO EXTENDED SPECTRUM BETA-LACTAMASES ESBL = EXTENDED SPECTRUM BETA-LACTAMASE TFG = THYMIDINE-DEPENDENT STRAIN BRENDA = BETA-LACTAMASE POSITIVE IB = INDUCIBLE BETA-LACTAMASE. APPEARS IN PLACE OF 'S' WITH SPECIES KNOWN TO POSSESS INDUCIBLE BETA-LACTAMASES. POTENTIALLY THEY MAY BECOME RESISTANT TO ALL B-LACTAM DRUGS. PERFORMED BY: [place] [address] PATHOLOGIST SHRIMP HEADER SHIRA FITCH M.D.[facility] Physician GroupComment on above: Performed By: #### CUU #### [address]Interpretation:on [id number] Ab IA QlCommentInvalid Interpretation CodeFisher Brook Lane Psychiatric CenterComment on above:Result Comment: Not infected with HCV unless early or acute infection is suspected (which may be delayed in an immunocompromised individual), or other evidence exists to indicate HCV infection. Performed at: [facility] [address] [place], [place] [id number] PhD Ania Langleyformed By: #### [id number] #### [facility] [address] [place], [place] [address]HXB Antibody RFX to Quant PCRon [id number] IgG IA Ql Non-ReactiveInvalid Interpretation CodeNon ReactiveFisher [facility] Comment on above:Result Comment: Performed at: [facility] [id number] PhD Ania Langleyformed By: #### [id number] #### [facility] [address] [place], [place] [address]HQVAZNTDFFflpadk By: SYSTEM SYSTEM on [id number] [Mass/Vol]276 mg/xWGvlg640 - 200 mg/dLRemisol ChemCholesterol in HDL [Mass/Vol] 36 mg/dLInvalid Interpretation CodeRemisol ChemComment on above:Result Comment: '>= 60 LOW RISK' '<= 40 HIGH RISK'Cholesterol in LDL [Mass/Vol]195 mg/dLHigh<=129mg/dLRemisol ChemCholesterol in VLDL [Mass/Vol]65 mg/dLHigh7 - 40 mg/dLRemisol Chem Triglyceride [Mass/Vol]324 mg/dLHigh<=149mg/dLRemisol ChemLipid Panelon [id number] [Mass/Vol]276 mg/rTIpnr686-990UfgtfgRegency Hospital Company Comment on above:Performed By: #### [id number] #### [facility] [address] [place], [place] [address]Upxkxihbobc in HDL [Mass/Vol]36 mg/dLInvalid Interpretation [facility] HospitalComment on above:Result Comment: '>= 60 LOW RISK' '<= 40 HIGH RISK'Performed By: #### [id number] #### [facility] [address] [place], [place] [address]Whvrhjemzlc in LDL [Mass/Vol]195 mg/dLHigh<=129Reg[facility] Hospital CompanyComment on above:Performed By: #### [id number] #### [facility] [address] [place], [place] [address]Emrfrkhmccy in VLDL [Mass/Vol]65 mg/dLHigh7-40Reg[facility] Hospital CompanyComment on above:Performed By: #### [id number] #### [facility] [address] [place], [place] [address]Duxgcwaseymn [Mass/Vol]324 mg/dLHigh<=149J[address] Lane Psychiatric CenterComment on above:Performed By: #### [id number] #### [facility] [address] [place], [place] [address]Jsuqrkygym Visit Summaryon [id number] Visit Summary Ambulatory Visit Summary SUSANNE GARCIA :1955 Visit Date:07/23/2024 Ambulatory Visit Instructions Your Diagnosis Encounter for subsequent annual wellness visit (AWV) in Medicare patient Hypertension Screening for ischemic heart disease Immunization declined Colonoscopy refused Encounter for hepatitis C screening test for low risk patient Obesity (BMI 30-39.9) Your Care Team Attending Physician - Ari Garcia MD Primary Care Physician - Ari Garcia MD This Is Your Medications List amlodipine (Norvasc 5 mg Tab) losartan (losartan 100 mg Tab) Procedures Performed Foot, Tonsillectomy. Discharge Vitals Heart Rate (Peripheral) 70 Respiratory Rate 16 Blood Pressure 136/82 Height 180.3 cm Height 71 in Weight 124.1 kg Weight 273.593 lb BMI 38.18 What to do next Scheduled Follow-Up Appointments Tuesday 8:20 AM EST With: Where: [address] [address]24 7:00 AM EDT With: Ari Garcia MD Where: [address] [address]- Tuesday 8:00 AM EST With: Where: [address] [address]- You Need to Complete the Following HCV Antibody RFX to Quant PCR, Blood, Routine collect, 07/23/24, Order for future visit, Lab Collect, Encounter for hepatitis C screening test for low risk patient, Not Required, Print Label By OrderLocation Lipid Panel, Blood, Routine collect, 07/23/24, Order for future visit, Lab Collect, Screening for ischemic heart disease, Required & Missing, Print Label By Order Location Medications What How Much When Instructions Unchanged amlodipine (Norvasc 5 mg Tab) 1 Tablets By Mouth Every day Unchanged losartan (losartan 100 mg Tab) 1 Tablets By Mouth Every day Allergies Bactrim (Skin irritation) penicillins (Difficulty breathing) Problems Ongoing - Any problem that you are currently receiving treatment for. BMI 38.0-38.9,adult BPH with urinary obstruction Gout History of kidney stones History of prostatitis Hypertension Hypokalemia Intermittent palpitations Nonsmoker Obesity Obesity (BMI 30-39.9) Prostatitis Recurrent UTI Right knee pain Screening PSA (prostate specific antigen) Historical - Any problem that you are no longer receiving treatment for. BMI 37.0-37.9, adult Patient Survey You may receive a survey via text or e-mail asking about your office visit. Please share your experience with us by completing your survey. We appreciate your feedback and thank you for choosing us for your care. Education Materials Obesity, Adult Obesity is having too much body fat. Being obese means that your weight is more than what is healthy for you. BMI (body mass index) is a number that explains how much body fat you have. If you have a BMI of 30or more, you are obese. Obesity can cause serious health problems, such as: ??? Stroke. ??? Coronary artery disease (CAD). ??? Type 2 diabetes. ??? Some types of cancer. ??? High blood pressure (hypertension). ??? High cholesterol. ??? Gallbladder stones. Obesity can also contribute to: ??? Osteoarthritis. ??? Sleep apnea. ??? Infertility problems. What are the causes? Eating meals each day that are high in calories, sugar, and fat. ??? Drinking a lot of drinks that have sugar in them. ??? Being born with genes that may make you more likely to become obese. ??? Having a medical condition that causes obesity. ??? Taking certain medicines. ??? Sitting a lot (having a sedentary lifestyle). ??? Not getting enough sleep. What increases the risk? Having a family history of obesity. ??? Living in an area with limited access to: ? [place], recreation centers, or sidewalks. ? Healthy food choices, such as grocery stores and [facility]. What are the signs or symptoms? The main sign is having too much body fat. How is this treated? Treatment for this condition often includes changing your lifestyle. Treatment may include: ??? Changing your diet. This may include making a healthy meal plan. ??? Exercise. This may include activity that causes your heart to beat faster (aerobic exercise) and strength training. Work with your doctor to design a program that works for you. ??? Medicine to help you lose weight. This may be used if you are not able to lose one pound a week after 6 weeks of healthy eating and more exercise. ??? Treating conditions that cause the obesity. ??? Surgery. Options may include gastric banding and gastric bypass. This may be done if: ? Other treatments have not helped to improve your condition. ? You have a BMI of 40 or hig (more content not included)...NormalRegency Hospital CompanyBMPon [id number] gap [Moles/Vol]12 mmol/LNormal6-16[facility] Hospital CompanyComment on above:Performed By: #### [id number] #### [facility] [address] [place], [place] [address]Xqbqxgm [Mass/Vol]8.7 mg/dLLow8.9-11.1FGrand Lake Joint Township District Memorial HospitalComment on above:Performed By: #### [id number] #### [facility] [address] [place], [place] [address]Frplciur [Moles/Vol]105 mmol/DJjvlbx236-070OeinsmRegency Hospital CompanyComment on above:Performed By: #### [id number] #### [facility] [address] [place], [place] [address]YW6 [Moles/Vol]24 mmol/KXjppkq87-86DhnnmzRegency Hospital Company Comment on above:Performed By: #### [id number] #### [facility] [address] [place], [place] [address]Dsvcktgfhm [Mass/Vol]0.8 mg/dLNormal0.5-1.3FGrand Lake Joint Township District Memorial HospitalComment on above:Performed By: #### [id number] #### [facility] [address] [place], [place] [address]Nespsni [Mass/Vol]101 mg/oSEqilog41-004XfaanlRegency Hospital CompanyComment on above:Performed By: #### [id number] #### [facility] [address] [place], [place] [address]Seadlftbe [Moles/Vol]3.8 mmol/LNormal3.5-5.3FGrand Lake Joint Township District Memorial HospitalComment on above:Performed By: #### [id number] #### [facility] [address] [place], [place] [address]Ujtvki [Moles/Vol]137 mmol/MDdexxe450-906ErtiynRegency Hospital CompanyComment on above:Performed By: #### [id number] #### [facility] [address] [place], [place] [address]Wyos nitrogen [Mass/Vol]10 mg/dLNormal5-21[facility] Hospital CompanyComment on above:Performed By: #### [id number] #### [facility] [address] [place], [place] [address]Zmgd nitrogen/Creatinine [Mass ratio]12 No HuhneHencmx81-77 [facility] Hospital CompanyComment on above:Performed By: #### [id number] #### [facility] [address] [place], [place] [address]LTAPULJTWRcutper By: SYSTEM SYSTEM on 48-26-1633Xtjtd gap [Moles/Vol]12 mmol/LNormal6 - 16 mEq/LRemisol ChemCalcium [Mass/Vol]8.7 mg/dLLow 8.9 - 11.1 mg/dLRemisol ChemChloride [Moles/Vol]105 mmol/PVdwjwi055 - 111 mmol/L Remisol ChemCO2 [Moles/Vol]24 mmol/VXeoamc63 - 31 mmol/LRemisol ChemCreatinine [Mass/Vol]0.8 mg/dLNormal0.5 - 1.3 mg/dLRemisol MagwbJSF61 mL/min/1.73 o5Swlfji >=59mL/min/1.73 a7Kldyrlo ChemGlucose [Mass/Vol]101 mg/aOXfczpz62 - 199 mg/dL Remisol ChemMagnesium [Mass/Vol]1.7 mg/dLNormal1.3 - 2.4 mg/dLRemisol Chem Potassium [Moles/Vol]3.8 mmol/LNormal3.5 - 5.3 mmol/LRemisol ChemSodium [Moles/Vol]137 mmol/UTwznex127 - 145 mmol/LRemisol ChemUrea nitrogen [Mass/Vol] 10 mg/dLNormal5 - 21 mg/dLRemisol ChemUrea nitrogen/Creatinine [Mass ratio]12 mg/hpVraygb69 - 20Remisol ChemFami Medicine Office/Clinic Noteon 07-23-2024 [facility] Medicine Office/Clinic NoteFanew [facility] Medicine Office/Clinic Note Chief Complaint Subsequent AWV History of Present Illness Covid-19, MERS, Ebola Screen *Contact With Person With Highly Contagious Disease Like Ebola/MERS/COVID-19 AND Have One or More of the Symptoms Below : No *Travel to a Country With Wide-Spread Ebola/MERS/COVID-19 in the Past 21 Days AND Have One or More of the Symptoms Below : No Patient Reported Covid-19 Testing : No *Verify Droplet, Contact Precautions for Ebola (Reference for CDC) : N/A *Verify Airborne, Droplet Precautions for MERS/COVID-19 : N/A Maral Beaulieu 07/23/2024 10:51 EST Medicare/Medicaid Summary Patient Counseled : Nutrition, Physical activity, Elevated BMI Weight Measured : 124.1 kg(Converted to: 273 lb 9 Ounces, 273.594 lb) Body Mass Index Measured : 38.18 kg/m2 Weight in Pounds : 273.593 lb Systolic Blood Pressure : 136 mmHg Diastolic Blood Pressure : 82 mmHg Blood Pressure Position : Sitting O2 Sat Resting/Exertion Alpha : Resting Peripheral Pulse Rate : 70 bpm Respiratory Rate : 16 br/min SpO2 : 97 % Pain Present : No actual or suspected pain Maral Beaulieu 07/23/2024 10:54 EST Chief Complaint : Subsequent AWV Height/Length Measured : 180.3 cm(Converted to: 5 ft 11 in, 70.98 in) Height in Inches : 71 in Maral Beaulieu 07/23/2024 10:52 EST Hearing and Vision Screening FT FT Whisper Test Comments : no hearing deficits Vision Screen Comments : Patient wears corrective lens. Sees Dr. Naidu. Is seen every 2 years. Maral Beaulieu - 07/23/2024 10:54 EST Advance Directive FT Advance Directive : Yes Type of Advance Directive : Living will, Medical durable power of attorney law clerk Location of Advance Directive : Family to bring in copy from home Organ Donation Consent : Yes Maral Beaulieu - 07/23/2024 10:54 EST Procedures / Surgeries FT - Procedure History (As Of: 07/23/2024 11:05:25 EST) Anesthesia Minutes: 0 ; Procedure Name: Tonsillectomy ; Procedure Minutes: 0 ; Last Reviewed Dt/Tm:07/23/2024 10:56:46 EST Anesthesia Minutes: 0 ; Procedure Name: Foot ; Procedure Minutes: 0 ; Last Reviewed Dt/Tm: 07/23/2024 10:56:46 EST Family History Family History (As Of: 07/23/2024 11:05:25 EST) Father: Relation: Father ; Gender: Male ; Nomenclature: Hypertension ; Value: Negative Mother: Relation: Mother ; Gender: Female ; Nomenclature: Hypertension ; Value: Negative Sister: Relation: Sister ; Gender: Female ; Nomenclature: Hypertension ; Value: Negative Medicare/Medicaid Social History FT Social History (As Of: 07/23/2024 11:05:25 EST) Alcohol: Never Comments: 07/23/2024 10:57 - Maral Beaulieu: denies use. (Last Updated: 07/23/2024 10:57:05 EST by Maral Beaulieu) Tobacco: Never (less than 100 in lifetime) Tobacco Use:. Never Smokeless Tobacco Use:. Household tobacco concerns: No. Yes Comments: 07/23/2024 10:57 - Maral Beaulieu: denies use. (Last Updated: 07/23/2024 10:57:15 EST by Maral Beaulieu) Substance Abuse: Never Comments: 07/23/2024 10:57 - Maral Beaulieu: denies use. (Last Updated: 07/23/2024 10:57:26 EST by Maral Beaulieu) Health Risk Assessment FT HRA little interest or pleasure? : No HRA down, depressed, or hopeless? : No Hazards in your house? : No Fall Risk Past Year : No Worried About Falling : No Use a Cane or Walker? : No Someone Helps You in the Morning : No Fallen or felt dizzy standing up? : No Assistance with personal care? : No Trouble taking meds correctly? : No Able to walk without help? : Yes Ability to shop w/out help : Yes Prepare your own meals? : Yes Housework without help? : Yes Handle money without help : Yes Track own medications without help? : Yes Overall mood for past four weeks : Very well General health rating : Very Good Someone avail. to help if needed? : Yes, as much as I wanted Phys. & emotional health limit social act? : Not at all Maral Beaulieu - 07/23/2024 10:54 EST Misc Health Risks Grid Sexual problems : Never Trouble eating well : Never Teeth or denture problems : Never Problems using the telephone : Never Maral Beaulieu - 07/23/2024 10:54 EST Confident you control health problems : Very confident Difficulties driving your car? : No Seatbelts : I always fasten my seat belt Maral Beaulieu - 07/23/2024 10:54 EST Depression Screening Little Interest, Pleasure in Activities (ref) : Not at all Feeling Down, Depressed, Hopeless : Not at all Initial Depression Screening Score : 0 SCORE Depression Screening Result : Negative Maral Beaulieu - 07/23/2024 10:54 EST Social Determinants (PRAPARE) Only Required Villanueva highlighed in yellow need to be filled out and will trigger a referral to the Chronic Care Navigators : Syriac What is your housing situation today? : I have housing You or Family Gone Without Household Needs Past Year : No No Transport to Med Appts/Meetings/Work/Meds/Necessities : No Currently Live in Physical (more content not included)...[facility] HospitalComment on above:Result Comment: Electronically Signed By: Ari Garcia MD\.br\Date and Time Signed: 07/23/24 13:58 EST\.br\Electronically Co-Signed By: Maral Beaulieu.br\Date and Time Co-Signed: 07/23/24 11:53 EST Family Medicine Office/Clinic NoteFamily Medicine Office/Clinic Note HPI Staff Susanne is a 69 year old male presenting for 2 week follow up htn Patient is here for follow up on hypertension. How often are you checking your blood pressure? Daily What are your average readings? brought log in Yearly BMP: 07/09/24 questions/concerns: just his heart rate seems to go up when he's doing things, still coughing a bit, had a bad cough early may that lasted 3 weeks and still lingers a bit History of Present Illness Patient presents for follow-up on hypokalemia hypertension and has a concern for intermittent palpitation. Please see staff HPI. Review of Systems PHQ Score Initial Depression Screen Score: 0 SCORE Physical Exam Vitals & Measurements T: 36.6 ???C(Temporal Artery) HR: 70(Peripheral) RR: 16 BP: 136/82 SpO2: 97% HT: 71 in HT: 180.3 cm WT: 124.1 kg WT: 273.593 lb BMI: 38.18 General: alert, no acute distress ENMT: oral mucosa moist, Cardiovascular: regular rate and rhythm, normal peripheral perfusion Respiratory: Lungs CTA, respirations non labored Extremities: no deformity, no trauma Neurological: oriented x 4, LOC appropriate for age, CN II-XII intact, motor strength equal & normal bilaterally, speech normal Abdomen: Soft, Nontender, Non-distended, + BS Assessment/Plan 1. Hypokalemia (E87.6: Hypokalemia) Will recheck today now that the patient's been off of his potassium. Will also recheck mag. 2. Hypertension (I10: Essential (primary) hypertension) Blood pressure is improved at this time no concerns. Reviewed blood pressure logs. All of them are within normal limits except for 1. Discussed this in detail with the patient. Will go ahead and refill medication until I see him back in 6 months. 3. Intermittent palpitations (R00.2: Palpitations) Patient is monitoring these on his watch. Every time he has them he is in normal sinus rhythm. Patient was worked up when he was younger for PVCs. Normal sinus rhythm today. Discussed OTC magnesium. 4. BMI 38.0-38.9,adult (Z68.38: Body mass index [BMI] 38.0-38.9, adult) BMI education added 5. Obesity due to excess calories (E66.09: Other obesity due to excess calories) Diet and exercise advised 6. Nonsmoker (Z78.9: Other specified health status) Please continue not to smoke Orders: amlodipine, 5 mg = 1 tab(s), Oral, Daily, # 90 tab(s), Refills(s) 0, Pharmacy: [facility] [id number], 180.3, cm, 07/23/24 10:11:00 EST, Height/Length Dosing, 124.1, kg, 07/23/24 10:11:00 EST, Weight Dosing losartan, 100 mg = 1 tab(s), Oral, Daily, # 90 tab(s), Refills(s) 0, Pharmacy: [facility] [id number], 180.3, cm, 07/23/24 10:11:00 EST, Height/Length Dosing, 124.1, kg, 07/23/24 10:11:00 EST, Weight Dosing Follow-up No qualifying data available Problem List/Past Medical History Ongoing BMI 37.0-37.9, adult BPH with urinary obstruction Gout History of kidney stones History of prostatitis Hypertension Hypokalemia Intermittent palpitations Nonsmoker Obesity Obesity (BMI 30-39.9) Prostatitis Recurrent UTI Right knee pain Screening PSA (prostate specific antigen) Historical No qualifying data Procedure/Surgical History Foot, Tonsillectomy. Medications losartan 100 mg Tab, 100 mg= 1 tab(s), Oral, Daily Norvasc 5 mg Tab, 5 mg= 1 tab(s), Oral, Daily Allergies Bactrim (Skin irritation) penicillins (Difficulty breathing) Social History Alcohol Never., 07/09/2024 Substance Abuse Never., 07/09/2024 Tobacco Never (less than 100 in lifetime) Tobacco Use:. Never Smokeless Tobacco Use:. Household tobacco concerns: No. Yes, 07/23/2024 Family History Hypertension: Negative: Mother, Father and Sister. Immunizations Vaccine Date Status zoster vaccine, inactivated 08/01/2023 Recorded zoster vaccine, inactivated 05/30/2023 Recorded influenza virus vaccine, inactivated 05/30/2023 Recorded SARS-CoV-2 (COVID-19) mRNAMUL.[id number] 07/28/2022 Recorded influenza virus vaccine, inactivated 06/17/2022 Recorded SARS-CoV-2 (COVID-19) mRNA BNT-162b2 vax 06/09/2021 Recorded influenza virus vaccine, inactivated 05/29/2021 Recorded influenza virus vaccine, inactivated 05/15/2021 Recorded SARS-CoV-2 (COVID-19) mRNA BNT-162b2 vax 11/26/2020 Recorded SARS-CoV-2 (COVID-19) mRNA BNT-162b2 vax 11/05/2020 Recorded influenza virus vaccine, inactivated 06/27/[address] Psychiatric CenterComment on above:Result Comment: Electronically Signed By: Jose RAE, Ari Reece\.br\Date and Time Signed: 07/23/24 10:28 ESTMagnesiumon 07-23-2024 Magnesium [Mass/Vol]1.7 mg/dLNormal1.3-2.4Fisher [facility] Lane Psychiatric CenterComment on above:Performed By: #### [id number] #### [facility] [address] [place], [place] [address]yVGHhp 31-48-2874bSHZ95 mL/min/1.73 [address]gtd>=59[address] Psychiatric CenterComment on above:Performed By: #### [id number] #### [facility] [address] [place], [place] [address]Sfnpaxwlhl Visit Summaryon 10-32-3722Nuyvltkwyn Visit Summary Ambulatory Visit Summary SUSANNE GARCIA :1955 Visit Date:07/09/2024 Ambulatory Visit Instructions Your Diagnosis Hypertension Intermittent palpitations Hypokalemia BMI 37.0-37.9, adult Obesity (BMI 30-39.9) Nonsmoker Your Care Team Attending Physician - Jose RAE, Ari Reece Primary Care Physician - CEFERINO RAE, This Is Your Medications List amlodipine (Norvasc 5 mg Tab) losartan (losartan 100 mg Tab) [Image Removed: STOP]Stop taking these medications carvedilol (carvedilol 25 mg Tab) hydrochlorothiazide-losartan (hydrochlorothiazide-losartan 25 mg-100 mg Tab) potassium chloride (Potassium Chloride (Eqv-K-Tab) 20 mEq oral tablet, extended release) Procedures Performed Foot, Tonsillectomy. Discharge Vitals Temperature (Oral) 36.4 ???C Heart Rate (Peripheral) 68 Respiratory Rate 16 Blood Pressure 148/72 Height 180.5 cm Height 71 in Weight 121.8 kg Weight 268.523 lb BMI 37.38 What to do next Scheduled Follow-Up Appointments Tuesday 10:00 AM EST With: Jose RAE, Ari Reece Where: [facility] Medicine [address] [address]- Medications What How Much When Instructions New amlodipine (Norvasc 5 mg Tab) 1 Tablets By Mouth Every day Pickup at [facility] [id number] New losartan (losartan 100 mg Tab) 1 Tablets By Mouth Every day Pickup at [facility] [id number] Pharmacy Information [facility] [id number]: [address], [place] [id number] [phone] What How Much When Comments Stop Taking carvedilol (carvedilol 25 mg Tab) Stop Taking hydrochlorothiazide-losartan (hydrochlorothiazide-losartan 25 mg-100 mg Tab) 1 Tablets Every day Stop Taking potassium chloride (Potassium Chloride (Eqv-K-Tab) 20 mEq oral tablet, extended release) Allergies Bactrim (Skin irritation) penicillins (Difficulty breathing) Problems Ongoing - Any problem that you are currently receiving treatment for. BMI 37.0-37.9, adult BPH with urinary obstruction Gout History of kidney stones History of prostatitis Hypertension Hypokalemia Intermittent palpitations Nonsmoker Obesity Obesity (BMI 30-39.9) Prostatitis Recurrent UTI Right knee pain Screening PSA (prostate specific antigen) UTI (urinary tract infection) Patient Survey You may receive a survey via text or e-mail asking about your office visit. Please share your experience with us by completing your survey. We appreciate your feedback and thank you for choosing us for your care. NormalRegency Hospital CompanyCHEMISTRYOrdered By: SYSTEM SYSTEM on 04-45-8381Uxmnpua [Mass/Vol]4.2 g/dLNormal3.3 - 5.0 gm/dLRemisol Chem Albumin/Globulin [Mass ratio]1.8 {ratio}Normal1.1 - 2.2Remisol ChemALP [Catalytic activity/Vol]63 [iU]/pFkzjzr37 - 98 Int._Unit/LRemisol ChemALT No additional P-5'-P [Catalytic activity/Vol]33 [iU]/dNormal6 - 46 Int._Unit/L Remisol ChemAnion gap [Moles/Vol]12 mmol/LNormal6 - 16 mEq/LRemisol ChemAST [Catalytic activity/Vol]26 [iU]/dNormal5 - 43 Int._Unit/LRemisol ChemBilirubin [Mass/Vol]0.8 mg/dLNormal0.0 - 1.1 mg/dLRemisol ChemCalcium [Mass/Vol]8.7 mg/dL Low8.9 - 11.1 mg/dLRemisol ChemChloride [Moles/Vol]101 mmol/QHqmrwc952 - 111 mmol/LRemisol ChemCO2 [Moles/Vol]27 mmol/LIcfghl72 - 31 mmol/LRemisol Chem Creatinine [Mass/Vol]0.8 mg/dLNormal0.5 - 1.3 mg/dLRemisol OenekQDP22 mL/min/1.73 h2Loxjos>=59mL/min/1.73 g4Cdetnpb ChemGlobulin (S) [Mass/Vol]2.4 g/dLNormal1.4 - 4.0 gm/dLRemisol ChemGlucose [Mass/Vol]193 mg/wQQrgfpe83 - 199 mg/dLRemisol ChemMagnesium [Mass/Vol]1.9 mg/dLNormal1.3 - 2.4 mg/dLRemisol Chem Potassium [Moles/Vol]3.8 mmol/LNormal3.5 - 5.3 mmol/LRemisol ChemProtein [Mass/Vol]6.6 g/dLNormal6.0 - 7.8 gm/dLRemisol ChemSodium [Moles/Vol]136 mmol/L Aqfcbe702 - 145 mmol/LRemisol ChemUrea nitrogen [Mass/Vol]14 mg/dLNormal5 - 21 mg/dLRemisol ChemUrea nitrogen/Creatinine [Mass ratio]18 mg/yyJpvdgw23 - 20 Remisol ChemCMPon 10-30-3412Rtrhjkl [Mass/Vol]4.2 g/dLNormal3.3-5.0Regency Hospital CompanyComment on above:Performed By: #### [id number] #### [facility] [address] [place], [place] [address]Whglrmd/Globulin (S) [Mass conc ratio]1.9Uxslrc6.1-2.2FGrand Lake Joint Township District Memorial HospitalComment on above:Performed By: #### [id number] #### [facility] [address] [place], [place] [address]UUH [Catalytic activity/Vol]63 Int._Unit/JHctpxi89-57IfnwjoRegency Hospital CompanyComment on above:Performed By: #### [id number] #### [facility] [address] [place], [place] [address]XJO No additional P-5'-P [Catalytic activity/Vol]33 Int._Unit/L Normal6-46Regency Hospital CompanyComment on above:Performed By: #### [id number] #### [facility] [address] [place] [address]Xorfy gap [Moles/Vol]12 mmol/LNormal6-16Reg[facility] Hospital CompanyComment on above:Performed By: #### [id number] #### [facility] [address] [place] [address]LNI [Catalytic activity/Vol]26 Int._Unit/LNormal5-43Reg[facility] Hospital CompanyComment on above:Performed By: #### [id number] #### [facility] [address] [place] [address]Mjljbumvd [Mass/Vol]0.8 mg/dLNormal0.0-1.1FGrand Lake Joint Township District Memorial HospitalComment on above:Performed By: #### [id number] #### [facility] [address] [place], [place] [address]Rmjxyag [Mass/Vol]8.7 mg/dLLow8.9-11.1FGrand Lake Joint Township District Memorial HospitalComment on above:Performed By: #### [id number] #### [facility] [address] [place], [place] [address]Sxhejljy [Moles/Vol]101 mmol/OQjnrtt601-252ZwjwyvRegency Hospital CompanyComment on above:Performed By: #### [id number] #### [facility] [address] [place], [place] [address]DC8 [Moles/Vol]27 mmol/IWjimpf95-07DfhjvuRegency Hospital Company Comment on above:Performed By: #### [id number] #### [facility] [address] [place], [place] [address]Onjlcpmwym [Mass/Vol]0.8 mg/dLNormal0.5-1.3FGrand Lake Joint Township District Memorial HospitalComment on above:Performed By: #### [id number] #### [facility] [address] [place], [place] [address]Ctgqwstl (S) [Mass/Vol]2.4 g/dLNormal1.4-4.0Reg[facility] Hospital CompanyComment on above:Performed By: #### [id number] #### [facility] [address] [place], [place] [address]Rmcrtoj [Mass/Vol]193 mg/qWLnvmas77-692EekaigRegency Hospital CompanyComment on above:Performed By: #### [id number] #### [facility] [address] [place], [place] [address]Pirumelkd [Moles/Vol]3.8 mmol/LNormal3.5-5.3FGrand Lake Joint Township District Memorial HospitalComment on above:Performed By: #### [id number] #### [facility] [address] [place], [place] [address]Ziitvrs [Mass/Vol]6.6 g/dLNormal6.0-7.8Reg[facility] Hospital CompanyComment on above:Performed By: #### [id number] #### [facility] [address] [place], [place] [address]Rymhqc [Moles/Vol]136 mmol/OXbnopv453-780OdyjhrRegency Hospital CompanyComment on above:Performed By: #### [id number] #### [facility] [address] [place], [place] [address]Cupn nitrogen [Mass/Vol]14 mg/dLNormal5-21Reg[facility] Hospital CompanyComment on above:Performed By: #### [id number] #### [facility] [address] [place], [place] [address]Zntu nitrogen/Creatinine [Mass ratio]18 No QaynqIlljue84-28 [facility] CompanyComment on above:Performed By: #### [id number] #### [facility] [address] [place], [place] [address]Lyycdy Medicine Office/Clinic Noteon 51-40-1045Wvgjtm Medicine Office/Clinic NoteFanew england [facility] Medicine Office/Clinic Note Chief Complaint Establish Care Experiences dizziness and palpitations, likely linked to medication regimen HPI Staff Susanne is a 69 year old male presenting to [facility] care Establish Care: History: BPH,Gout, HTN Any previous diagnosis: History of seeing any specialist: Dr Marquez When was your last doctors visit: May Last provider: Moni Any recent labs: no Health Maintenance UTD: Colonoscopy: has not had one PSA: 12/23/22 - 0.79 Acute: Current issues/complaints: discuss BP meds. History of Present Illness The patient is a 69-year-old male presenting with hypertension, intermittent palpitations, and symptoms potentially related to medication side effects. He has a history of essential hypertension, managed with multiple antihypertensive medications including carvedilol and losartan with hydrochlorothiazide. The patient reports experiencing lightheadedness in the morning, which subsides by the afternoon. He connects this sensation to taking his blood pressure medication early in the morning. Due to these side effects, he discontinued the second daily dose of carvedilol. Additionally, the patienthas a history of gout, obesity with a BMI of 37.0-37.9, and is a nonsmoker. He mentions a previous low potassium level requiring hospitalization and ongoing use of potassium supplementation, which hefinds difficult to take due to pill size. The patient suspects a possible linkage between his antihypertensive medication and repeated low potassium levels. He maintains a generally regular lifestyleand denies alcohol or tobacco use. Recently retired, he reports less stress and greater ability to manage his health. Review of Systems PHQ Score Initial Depression Screen Score: 0 SCORE Physical Exam Vitals & Measurements T: 36.4 ???C(Oral) HR: 68(Peripheral) RR: 16 BP: 148/72 SpO2: 98% HT: 71 in HT: 180.5 cm WT: 121.8 kg WT: 268.523 lb BMI: 37.38 General: alert, no acute distress ENMT: oral mucosa moist Cardiovascular: Regular rate and rhythm, normal peripheral perfusion Respiratory: Lungs clear to auscultation, respirations non labored Extremities: no deformity, no trauma Neurological: oriented x 4, level of consciousness appropriate for age, CN II- XII intact, motor strength equal & normal bilaterally, speech normal Abdomen: Soft, Non-tender, Non-distended, + Bowel sounds Assessment/Plan 1. Hypertension (I10: Essential (primary) hypertension) The patient's blood pressure regimen requires adjustment due to side effects of dizziness. Discontinue hydrochlorothiazide to reduce potential dehydration and alter losartan to observe effects on blood pressure. Initiate amlodipine (Norvasc) 5 mg daily with titration as needed, while monitoring itseffectiveness and tolerability. Monitor blood pressure at home regularly. Ordered: Body Mass Index (BMI) documented 3008F Comprehensive Metabolic Panel Current tobacco non-user 1036F Depression Screening Negative 3352F Discharge medications reconciled with current medications in outpatient record 1111F Falls plan of care documented 0518F Influenza immunization status assessed 1030F Magnesium Level Medication list documented in medical record 1159F Most recent diastolic blood pressure <80 mm Hg 3078F Most recent systolic blood pressure >= 140 mm Hg 3077F Review of all meds by a prescribing practitioner or clinical pharmacist documented in EHR 1160F 2. Intermittent palpitations (R00.2: Palpitations) Likely caused by the hypokalemia and hypomagnesemia. Will recheck both of those levels today. Ordered: Comprehensive Metabolic Panel Magnesium Level 3. Hypokalemia (E87.6: Hypokalemia) Suspend potassium supplements post-hydrochlorothiazide cessation and evaluate serum potassium and magnesium levels to assess underlying deficiencies. Recommendations to maintain a balanced electrolyte and fluid intake for further monitoring. Ordered: Comprehensive Metabolic Panel Magnesium Level 4. BMI 37.0-37.9, adult (Z68.37: Body mass index [BMI] 37.0-37.9, adult) BMI education added Ordered: Comprehensive Metabolic Panel Magnesium Level 5. Obesity (BMI 30-39.9) (E66.9: Obesity, unspecified) Encourage lifestyle interventions focused on weight management including nutritional counseling andregular physical activity to improve overall cardiovascular health. Ordered: Comprehensive Metabolic Panel Magnesium Level 6. Nonsmoker (Z78.9: Other specified health status) Reinforce the continuation of nonsmoking status as a positive health behavior contributing to cardiovascular risk reduction. Ordered: Comprehensive Metabolic Panel Magnesium Level Orders: amlodipine, 5 mg = 1 tab(s), Oral, Daily, # 90 tab(s), Refills(s) 0, Pharmacy: [facility] [id number], 180.5, cm, 07/09/24 9:56:00 EST, Height/Length Dosing, 121.8, kg, 07/09/24 9:56:00 EST, WeightDosing losartan, 100 mg = 1 tab(s), Oral, Daily, # 90 tab(s), Refills(s) 0 (more content not included)...NormalRegency Hospital CompanyComment on above:Result Comment: Electronically Signed By: Jose RAE, Ari Gale.br\Date and Time Signed: 07/09/24 10:25 ESTMagnesiumon 26-62-7727Oecqsfier [Mass/Vol]1.9 mg/dLNormal 1.3-2.4FGrand Lake Joint Township District Memorial HospitalComment on above:Performed By: #### [id number] #### [facility] [address] [place], [place] [address]iANWkf 79-38-4421qHDH15 mL/min/1.73 u4Gzwmhq>=59Regency Hospital CompanyComment on above:Performed By: #### [id number] #### [facility] [address] [place], [place] [address]PBO LIPID PROFILE (FASTING)on 25-54-4107SIBY HDL RATIO5.0NOMS HealthcareComment on above:3.3 - 4.4 LOW RISK 4.4 - 7.1 AVERAGE RISK 7.1 - 11.0 MODERATE RISK >11.0 HIGH RISK Cholesterol [Mass/Vol]165 mg/dLNINF - 200 mg/dLNOMS HealthcareCholesterol in HDL [Mass/Vol]33 mg/dLLow40 - 60 mg/dLNOMS HealthcareComment on above:> or =60 mg/dl - LOW CARDIOVASCULAR RISK <40 mg/dl - HIGH CARDIOVASCULAR RISK Magnesium [Mass/Vol]68.0 mg/dLNOMS HealthcareComment on above:<100 mg/dl OPTIMAL 100-129 mg/dl NEAR OR ABOVE OPTIMAL 130-159 mg/dl BORDERLINE HIGH 160-189 mg/dl HIGH >190 mg/dl VERY HIGH Magnesium [Mass/Vol]64.2 mg/dLNOMS HealthcareTriglyceride [Mass/Vol]321 mg/dL HighNINF - 150 mg/dLNOWV HealthcareCCF CMP (CMP) (FOR REMOTE [facility] USE)on 61-79-2682Qmdjlnp [Mass/Vol]4.0 g/dL3.4 - 5.0 g/dLNOWV HealthcareALBUMIN GLOBULIN RATIO1.3NOWV HealthcareALP [Catalytic activity/Vol]66 U/L46 - 116 U/L NOMS HealthcareALT [Catalytic activity/Vol]32 U/L16 - 63 U/LNOMS HealthcareAnion gap [Moles/Vol]11.9 mmol/LNOMS HealthcareAST [Catalytic activity/Vol]15 U/L15 - 37 U/LNOMS HealthcareBilirubin [Mass/Vol]1.3 mg/dLHigh0.2 - 1.0 mg/dLNOWV HealthcareCalcium [Mass/Vol]8.5 mg/dL8.5 - 10.1 mg/dLNOWV HealthcareChloride [Moles/Vol]102 mmol/L98 - 107 mmol/LNOMS HealthcareCO2 [Moles/Vol]30.6 mmol/L 21.0 - 32.0 mmol/LNOMS HealthcareCreatinine [Mass/Vol]1.01 mg/dL0.70 - 1.30 mg/dLNOWV HealthcareGFR/1.73 sq M.predicted CKD-EPI (S/P/Bld) [Vol rate/Area]>60 60 - PINFNOMS HealthcareGlobulin (S) [Mass/Vol]3.0 g/dLNOMS HealthcareGlucose [Mass/Vol]117 mg/yRMamd80 - 106 mg/dLNOWV HealthcarePotassium [Moles/Vol]3.5 mmol/L3.5 - 5.1 mmol/LNOMS HealthcareProtein [Mass/Vol]7.0 g/dL6.4 - 8.2 g/dL NOM HealthcareSodium [Moles/Vol]141 mmol/L136 - 145 mmol/LNOMS HealthcareTBH EGFR-NON AF TANZANIAN>6060 - PINFNOMS HealthcareUrea nitrogen [Mass/Vol]21.0 mg/dLHigh7.0 - 18.0 mg/dLNOMS HealthcareUrea nitrogen/Creatinine [Mass ratio] 20.8 mg/mgNOMS HealthcareNo Panel Informationon 47-55-5694Jvwexduwccbbtm and review of laboratory resultsAbnormalMCKAY-DEE HOSPITAL CENTER HealthcareCLINISYNCNOMS Healthcare Ambulatory Visit Summaryon 61-37-3683Hkfyllpwxc Visit Summary SUSANNE GARCIA :1955 Visit Date:07/29/2023 Ambulatory Visit Instructions Your Diagnosis BPH with urinary obstruction History of kidney stones History of prostatitis Screening PSA (prostate specific antigen) Tests Performed Urnls Dip Stick Auto w/o Microscopy POC [id number] Your Care Team Attending Physician - Jon MARQUEZ MD Primary Care Physician - SHAIKH DE [...] Tuesday 8:45 AM EST With: ALMA RAE, Jon Alvarado [facility] CenterPatient Educationon 27-00-6185Ehemdoi EducationUrology Benign Prostatic Hyperplasia Benign prostatic hyperplasia (BPH) [...] urine that may remain in your bladder afteryou finish urinating. ? A digital rectal exam. [...] this procedure, a tool is inserted through theopening at the tip of the penis (urethra). [...] procedure uses radio frequencies to destroy and removea small amount of prostate tissue. ? Interstitial laser coagulation (ILC). This procedure uses a laser to destroy and remove a small amount of prostate tissue. ? Transurethral electrovaporization (TUVP). This procedure uses electrodes to destroy and remove a small amount of prostate tissue. ? Prostatic urethral lift. This procedure inserts an implant to push the lobes of the prostate awayfrom the urethra. Follow these instructions at home: ? Take svau-puf-rfdjkqi and prescription medicines only as told by [...] from the medicine (more content not included)... NormalRegency Hospital CompanyUrology Office/Clinic Noteon 37-11-2038Ckqowav Office/Clinic NoteChief Complaint BPH with urinary obstruction HPI Staff [...] and history for this patient from Dr. Marquez. I have reviewed and verified the staff [...] to increase fluid intake to ten to polewr39mf bottles a day; preferably water, clear pop, and sugar free lemonade. 3. History of prostatitis (Z87.438: Personal history of other diseases of male genital organs) No recent infections. UA today neg. Asymptomatic. 4. Screening PSA (prostate specific antigen) (Z12.5: Encounter for screening for malignant neoplasmof prostate) PSA: 12/23/22 - 0.79 [place] 01/10/23: 40g, benign -Cont to monitor PSA -PSA prior to 1 year appt Follow-up With When Contact Information ALMA RAE, Jon Alvarado, [address] [place] [address]- Additional Instructions: 1 year w/ PSA Patient Education Benign Prostatic Hyperplasia I, Melanie Waterman, personally scribed for Dr. Marquez on 07/29/2023 09:08:49. . Documentation recorded by the scribe, Melanie Waterman, accurately reflects the services(s) I performed and decisions made by me. Authenticated by Dr. Marquez on 07/29/2023 09:11:33. Problem List/Past Medical History [...] Sister. Immunizations Vaccine Date Status SARS-CoV-2 (COVID-19) mRNAMUL.ORD![id number] 07/28/2022 Recorded influenza virus vaccine, inactivated 06/17/2022 Recorded SARS-CoV-2 (COVID-19) mRNA BNT-162b2 vax 06/09/2021 Recorded influenza virus vaccine, inactivated 05/29/2021 Recorded influenza virus vaccine, inactivated 05/15/2021 Recorded SARS-CoV-2 (COVID-19) mRNA BNT-162b2 vax 11/26/2020 Recorded SARS-CoV-2 (COVID-19) mRNA BNT-162b2 vax 11/05/2020 Recor (more content not included)...[facility] HospitalComment on above:Result Comment: Electronically Signed By: Jon MARQUEZ MD\.br\Date and Time Signed: 07/29/23 09:11 EST\.br\Electronically Co-Signed By: Melanie Waterman.br\Date and Time Co-Signed: 07/29/2309:09 ESTCBC AUTO DIFFon 71-19-7311MYTU # 0.0 103/ulNormal0.0-0.1[facility]. [facility] God HospitalComment on above:Performed By: #### CMP, URIC, LIPID #### [facility] [address] [place] [address] Dr. Toma LemonBasophils/100 WBC (Bld)0.5 %Normal0.2-2.0[facility] Comment on above:Performed By: #### CMP, URIC, LIPID #### [facility] [address] [place] [address] Dr. Toma Dangelo #0.1 103/ulNormal0.0-0.7The Parkview HealthComment on above: Performed By: #### CMP, URIC, LIPID #### [facility] [address] [place] [address] Dr. Toma Ontiverososinophils/100 WBC (Bld)1.0 %Normal0.9-7.0The [facility] Comment on above:Performed By: #### CMP, URIC, LIPID #### [facility] [address] [place] [address] Dr. Toma Ontiverosrythrocyte distribution width (RBC) [Ratio]12.9 %Ysoisa28.0-15.0 [facility] HospitalComment on above:Performed By: #### CMP, URIC, LIPID #### [facility] [address] [place] [address] Dr. Toma Oquendoatocrit (Bld) [Volume fraction]47.8 %Kcogju66.0-54.0The [facility] Westment on above:Performed By: #### CMP, URIC, LIPID #### [facility] [address] [place] [address] Dr. Toma LemonHemoglobin (Bld) [Mass/Vol]15.7 g/lXRmbvyg03.0-18.0The Parkview HealthComment on above:Performed By: #### CMP, URIC, LIPID #### [facility] [address] [place] [address] Dr. Toma Mesa #0.03 10e3/ulNormal0.00-0.03The [facility] on above:Performed By: #### CMP, URIC, LIPID #### [facility] [address] [place] [address] Dr. Toma Mesa %0.5 %Normal0.0-0.5The Parkview HealthComment on above: Performed By: #### CMP, URIC, LIPID #### [facility] [address] [place] [address] Dr. Toma Velasquez #2.1 103/ulNormal1.2-3.8The [facility] on above:Performed By: #### CMP, URIC, LIPID #### [facility] [address] [place] [address] Dr. Toma Davilahocytes/100 WBC (Bld)35.1 %Xbnolb40.5-60.0The Parkview HealthComment on above:Performed By: #### CMP, URIC, LIPID #### [facility] [address] [place] [address] Dr. Toma EscobarUAL DIFF REQNONormalThe Parkview HealthComment on above: Performed By: #### CMP, URIC, LIPID #### [facility] [address] [place] [address] Dr. Toma More (RBC) [Entitic mass]29.7 qaUscywn96.9-34.0The [facility] HealthComment on above:Performed By: #### CMP, URIC, LIPID #### [facility] [address] [place] [address] Dr. Toma Moreno (RBC) [Mass/Vol]32.8 g/uGArvhiv67.9-35.2The [facility] HealthComment on above:Performed By: #### CMP, URIC, LIPID #### [facility] [address] [address] [address] Toma Moreno (RBC) [Entitic vol]90.5 kNBbpfjh98.0-94.0The [facility] HealthComment on above:Performed By: #### CMP, URIC, LIPID #### [facility] [address] [place] [address] Dr. Toma Lott #0.6 103/ulNormal0.3-0.8The [facility] HealthComment on above:Performed By: #### CMP, URIC, LIPID #### [facility] [address] [place] [address] Dr. Toma Lottocytes/100 WBC (Bld)9.7 %Normal1.7-12.0The [facility] Comment on above:Performed By: #### CMP, URIC, LIPID #### [facility] [address] [place] [address] Dr. Toma Ralph #3.1 103/ulNormal1.4-6.5The [facility] HealthComment on above:Performed By: #### CMP, URIC, LIPID #### [facility] [address] [place] [address] Dr. Toma Luceroutrophils/100 WBC (Bld)53.2 %Vommnh06.0-75.0The [facility] HealthComment on above:Performed By: #### CMP, URIC, LIPID #### [facility] [address] [place] [address] Dr. Toma Bolanos mean volume (Bld) [Entitic vol]11.0 fLNormal9.5-13.5The [facility] on above:Performed By: #### CMP, URIC, LIPID #### [facility] [address] [address] [address] Toma LemonPLT150 103/qpSxilvc693-940Klz [facility] on above: Performed By: #### CMP, URIC, LIPID #### [facility] [address] [address] [address] Toma LemonRBC5.28 106/ulNormal4.70-6.10The [facility] HealthComcaro center on above:Performed By: #### CMP, URIC, LIPID #### [facility] [address] [address] [address] Toma LemonWBC5.9 103/ulNormal4.0-11.0The [facility] on above: Performed By: #### CMP, URIC, LIPID #### [facility] [address] [place] [address] Dr. Toma LemonLIPID PROFILEon [id number]-HDL RATIO NORMSCincinnati Children's Hospital [facility] on above:Result Comment: 3.3 - 4.4 LOW RISK 4.4 - 7.1 AVERAGE RISK 7.1 - 11.0 MODERATE RISK >11.0 HIGH RISKPerformed By: #### CMP, URIC, LIPID #### [facility] [address] [place] [address] Dr. Toma LemonCholesterol [Mass/Vol]171 mg/dLNormal<=200The [facility] Comment on above:Performed By: #### CMP, URIC, LIPID #### [facility] [address] [address] [address] Toma LemonCholesterol in HDL [Mass/Vol]36 mg/dLCritically mub63-44Aau [facility] on above:Performed By: #### CMP, URIC, LIPID #### [facility] [address] [address] [address] Toma LemonCholesterol in LDL [Mass/Vol]90.0 mg/dLDayton Osteopathic Hospital on above:Performed By: #### CMP, URIC, LIPID #### [facility] [address] [place] [address] Dr. Toma LemonCholesternaresh.total/Cholesterol in HDL [Mass ratio]4.8 {ratio} NormalGood [facility]aritan Hospital on above:Performed By: #### CMP, URIC, LIPID #### [facility] [address] [place] [address] Dr. Toma Diallo NORMAL> or = 60 mg/dl - LOW CARDIOVASCULAR RISK <40 mg/dl - HIGH CARDIOVASCULAR RISKDayton Osteopathic Hospital on above:Performed By: #### CMP, URIC, LIPID #### [facility] [address] [place] [address] Dr. Toma LemonLDL CALC NORMALSEE BELOWTriHealth Good Samaritan HospitalComcaro center on above:Result Comment: <100 mg/dl OPTIMAL 100 - 129 mg/dl NEAR OR ABOVE OPTIMAL 130 - 159 mg/dl BORDERLINE HIGH 160 - 189 mg/dl HIGH >190 mg/dl VERY HIGH Performed By: #### CMP, URIC, LIPID #### [facility] [address] [place] [address] Dr. Toma LemonTriglyceride [Mass/Vol]225 mg/dLCritically high<=150The [facility] on above:Performed By: #### CMP, URIC, LIPID #### [facility] [address] [place] [address] Dr. Toma LemonVLDL CALC45.0 mg/dLNoTriHealth McCullough-[facility] HospitalComcaro center on above: Performed By: #### CMP, URIC, LIPID #### [facility] [address] [place] [address] Dr. Toma LemonPROF 14(COMP METB)on 16-32-5384Ayorcqz [Mass/Vol]4.1 g/dLNormal 3.4-5.0The [facility] on above:Performed By: #### CMP, URIC, LIPID #### [facility] [address] [place] [address] Dr. Toma LemonAlbumin/Globulin [Mass ratio]1.4 {ratio}NormalThe Mesa HospitalComment on above:Performed By: #### CMP, URIC, LIPID #### [facility] [address] [address] [address] Toma Mills [Catalytic activity/Vol]63 U/MOxjocz64-420Jrr [facility] HealthComment on above:Performed By: #### CMP, URIC, LIPID #### [facility] [address] [address] [address] Toma Suárez [Catalytic activity/Vol]38 U/SEyogsa81-62Tgv [facility] HealthComment on above:Performed By: #### CMP, URIC, LIPID #### [facility] [address] [address] [address] Toma Mercado gap [Moles/Vol]13.2 mmol/LNormalSt. [facility] Of [facility] Hospital Comment on above:Performed By: #### CMP, URIC, LIPID #### [facility] [address] [address] [address] Toma LemonAST [Catalytic activity/Vol]22 U/QNitlyt57-12Ufu [facility] on above:Performed By: #### CMP, URIC, LIPID #### [facility] [address] [address] [address] Toma LemonBilirubin [Mass/Vol]1.1 mg/dLCritically high0.2-1.0The [facility] on above:Performed By: #### CMP, URIC, LIPID #### [facility] [address] [address] [address] Toma LemonCalcium [Mass/Vol]8.8 mg/dLNormal8.5-10.1[facility] Comment on above:Performed By: #### CMP, URIC, LIPID #### [facility] [address] [address] [address] Toma LemonChloride [Moles/Vol]102 mmol/AOywrox93-627Kwb [facility] Comment on above:Performed By: #### CMP, URIC, LIPID #### [facility] [address] [address] [address] Toma LemonCO2 [Moles/Vol]29.9 mmol/OLmzdrn46.0-32.0The [facility] Comment on above:Performed By: #### CMP, URIC, LIPID #### [facility] [address] [place] [address] Dr. Toma LemonCreatinine [Mass/Vol]0.91 mg/dLNormal0.70-1.30The [facility] HealthComment on above:Performed By: #### CMP, URIC, LIPID #### [facility] [address] [place] [address] Dr. Toma OntiverosGFR-AF TANZANIAN>60Normal>=60The [facility] HealthComment on above:Performed By: #### CMP, URIC, LIPID #### [facility] [address] [place] [address] Dr. Toma OntiverosGFR-NON AF TANZANIAN>60Normal>=60The [facility] HealthComment on above:Performed By: #### CMP, URIC, LIPID #### [facility] [address] [place] [address] Dr. Toma LemonGlobulin (S) [Mass/Vol]2.9 g/dLNormalThe [facility] HealthComment on above:Performed By: #### CMP, URIC, LIPID #### [facility] [address] [place] [address] Dr. Toma LemonGlucose [Mass/Vol]120 mg/dLCritically ropf05-044SuhSt. John Of God HospitalComment on above:Performed By: #### CMP, URIC, LIPID #### [facility] [address] [place] [address] Dr. Toma LemonPotassium [Moles/Vol]4.1 mmol/LNormal3.5-5.1The [facility] Comment on above:Performed By: #### CMP, URIC, LIPID #### [facility] [address] [place] [address] Dr. Toma LemonProtein [Mass/Vol]7.0 g/dLNormal6.4-8.2[facility] Comment on above:Performed By: #### CMP, URIC, LIPID #### [facility] [address] [place] [address] Dr. Toma Camarillodium [Moles/Vol]141 mmol/ZArxmhz461-922Tyr [facility] Comment on above:Performed By: #### CMP, URIC, LIPID #### [facility] [address] [place] [address] Dr. Toma Wolfe nitrogen [Mass/Vol]11.0 mg/dLNormal7.0-18.0The [facility] HealthComment on above:Performed By: #### CMP, URIC, LIPID #### [facility] [address] [place] [address] Dr. Toma Wolfe nitrogen/Creatinine [Mass ratio]12.1 mg/mgNormalThe [facility] HealthComment on above:Performed By: #### CMP, URIC, LIPID #### [facility] [address] [place] [address] Dr. Toma Riddle ACID SERUMon 22-90-1722Kjnkm [Mass/Vol]4.1 mg/dLNormal 3.5-7.2The [facility] HealthComment on above:Performed By: #### CMP, URIC, LIPID #### [facility] [address] [place] [address] Dr. Toma Luis URINEon [id number] URINEIsolate 1 Escherichia coli >100,000 cfu/ml of ORGANISM [...] <=0.12 S F Nitrofurantoin <=16 S F Trimethoprim/Sulfamethoxazole <=20 S FNormalThe [facility] HealthComment on above:Performed By: #### URCX #### [facility] [address] [place] [address] Dr. Toma De La Rosa RANDOM W/MICROSCOPICon [id number]H SEENSt. John Of God HospitalComment on above:Performed By: #### CMP, URIC, LIPID #### [facility] [address] [address] [address] Toma LemonBilirubin Ql (U)SMALLAbnormalNEGATIVESt. John Of God HospitalComment on above:Performed By: #### CMP, URIC, LIPID #### [facility] [address] [address] [address] Toma Naranjo SEENNormalNONE SEENSt. John Of God HospitalComcaro center on above:Performed By: #### CMP, URIC, LIPID #### [facility] [address] [place] [address] Dr. Toma LemonClarity (U)CLEARNormalCLEARSt. John Of God HospitalComcaro center on above: Performed By: #### CMP, URIC, LIPID #### [facility] [address] [place] [address] Dr. Toma LemonColor (U)YELLOWNormalYELLOWSt. John Of God HospitalComment on above: Performed By: #### CMP, URIC, LIPID #### [facility] [address] [place] [address] Dr. Toma LemonCrystals LM Nom (Urine sed)NONE SEENNormalNONE SEENSt. John Of God HospitalComcaro center on above:Performed By: #### CMP, URIC, LIPID #### [facility] [address] [place] [address] Dr. Toma Ontiverospithelial cells LM Ql (Urine sed)FEWAbnormalNONE SEEN /RARESt. John Of God HospitalComcaro center on above:Performed By: #### CMP, URIC, LIPID #### [facility] [address] [place] [address] Dr. Toma LemonGlucose Ql (U)NegativeNormalNEGATIVESt. John Of God HospitalComment on above:Performed By: #### CMP, URIC, LIPID #### [facility] [address] [place] [address] Dr. Toma LemonHemoglobin Ql (U)TRACE-INTACTAbnormalNEGATIVESt. John Of God HospitalComment on above:Performed By: #### CMP, URIC, LIPID #### [facility] [address] [address] [address] Toma Soler Ql (U)NegativeNormalNEGATIVESt. John Of God HospitalComcaro center on above:Performed By: #### CMP, URIC, LIPID #### [facility] [address] [address] [address] Toma VazquezOCYTESSMALLAbnormalNEGATIVESt. John Of God HospitalComcaro center on above:Performed By: #### CMP, URIC, LIPID #### [facility] [address] [address] [address] Toma RodriguezUSTRACEAbnormalNONE SEENGood Samaritan Hospital on above:Performed By: #### CMP, URIC, LIPID #### [facility] [address] [address] [address] Toma James Ql (U)NegativeNormalNEGATIVESt. John Of God HospitalComment on above:Performed By: #### CMP, URIC, LIPID #### [facility] [address] [address] [address] Toma LemonpH (U)6.0 [pH]Normal5-9The [facility] on above: Performed By: #### CMP, URIC, LIPID #### [facility] [address] [address] [address] Toma LemonMqbmlFDO2-0Iwtsuq7-0Cqt [facility] on above:Performed By: #### CMP, URIC, LIPID #### [facility] [address] [address] [address] Toma LemonSPEC GRAVITY1.612Vomxmy8.005-<=1.025The [facility] on above:Performed By: #### CMP, URIC, LIPID #### [facility] [address] [address] [address] Toma De La Rosa PROTEINTRACENormalNEGATIVE/ TRACEThe [facility] HealthComment on above:Performed By: #### CMP, URIC, LIPID #### [facility] [address] [address] [address] Toma Martino Qn (U)0.2 {Beverly'U}/dLNormal0.2 - 1.0The [facility] on above:Performed By: #### CMP, URIC, LIPID #### [facility] [address] [address] [address] Toma LemonWBC5-10AbnormalNONE SEENSt. John Of God HospitalComment on above: Performed By: #### CMP, URIC, LIPID #### [facility] [address] [address] [address] Toma Luis URINEon [id number] URINEIsolate 1 Escherichia coli >100,000 cfu/mL of ORGANISM [...] <=0.12 S F Nitrofurantoin <=16 S F Trimethoprim/Sulfamethoxazole <=20 S FNormalThe [facility] HealthComment on above:Performed By: #### CMP, URIC, LIPID #### [facility] [address] [place] [address] Dr. Toma De La Rosa RANDOM W/MICROSCOPICon [id number]P SEENSt. John Of God HospitalComment on above:Performed By: #### UAMIC #### [facility] [address] [place] [address] Dr. Toma Morales Ql (U)NegativeNormalNEGATIVEThe [facility] Comment on above:Performed By: #### UAMIC #### [facility] [address] [place] [address] Dr. Toma Naranjo SEENNormalNONE SEENSt. John Of God HospitalComment on above:Performed By: #### UAMIC #### [facility] [address] [address] [address] oTma Guyarity (U)CLOUDYAbnormalCLEARThCommunity Memorial HospitalComment on above:Performed By: #### UAMIC #### [facility] [address] [address] [address] Toma Boss (U)LT. YELLOWNormalYELLOWSt. John Of God HospitalComment on above:Performed By: #### UAMIC #### [facility] [address] [address] [address] Toma LemonCrystals LM Nom (Urine sed)NONE SEENNormalNONE SEENSt. John Of God HospitalComment on above:Performed By: #### UAMIC #### [facility] [address] [address] [address] Chua ChangEpithelial cells LM Ql (Urine sed)FEWAbnormalNONE SEEN /RAREThe [facility] HealthComment on above:Performed By: #### UAMIC #### [facility] [address] [address] [address] Toma LemonGlucose Ql (U)NegativeNormalNEGATIVESt. John Of God HospitalComment on above:Performed By: #### UAMIC #### [facility] [address] [address] [address] Toma LemonHemoglobin Ql (U)LARGEAbnormalNEGATIVEBarney Children'S Medical Center on above:Performed By: #### UAMIC #### [facility] [address] [address] [address] Toma LemonKetones Ql (U)NegativeNormalNEGATIVESt. John Of God HospitalComment on above:Performed By: #### UAMIC #### [facility] [address] [address] [address] Toma LemonLEUKOCYTESLARGEAbnormalNEGATIVESt. John Of God HospitalComment on above:Performed By: #### UAMIC #### [facility] [address] [address] [address] Toma LemonMUCOUSNONE SEENNormalNONE SEENSt. John Of God HospitalComment on above:Performed By: #### UAMIC #### [facility] [address] [address] [address] Toma James Ql (U)NegativeNormalNEGATIVEThe [facility] HealthComment on above:Performed By: #### UAMIC #### [facility] [address] [address] [address] Toma LemonpH (U)7.0 [pH]Normal5-9The [facility] HealthComment on above: Performed By: #### UAMIC #### [facility] [address] [address] [address] Toma LemonDwyrlOVG48-97Wykkqzhy0-9Qec [facility] HealthComment on above: Performed By: #### UAMIC #### [facility] [address] [place] [address] Dr. Toma LemonSPEC GRAVITY1.049Xcerqy7.005-<=1.025The [facility] HealthComment on above:Performed By: #### UAMIC #### [facility] [address] [place] [address] Dr. Toma De La Rosa PROTEINTRACENormalNEGATIVE/ TRACEThe [facility] HealthComcaro center on above:Performed By: #### UAMIC #### [facility] [address] [place] [address] Dr. Toma Wilkinsbilmckenzie Qn (U)1.0 {Beverly'U}/dLNormal0.2 - 1.0The [facility] HealthComcaro center on above:Performed By: #### UAMIC #### [facility] [address] [place] [address] Dr. Toma LemonWBC (U) [#/Vol]/uLAbnormalNONE SEENSt. John Of God HospitalComcaro center on above:Performed By: #### UAMIC #### [facility] [address] [place] [address] Dr. Toma LemonLIPID PROFILEon 10-60-8220KPNV-HDL RATIO NORMSEE [facility] HospitalComment on above:Result Comment: 3.3 - 4.4 LOW RISK 4.4 - 7.1 AVERAGE RISK 7.1 - 11.0 MODERATE RISK >11.0 HIGH RISKPerformed By: #### CMP, URIC, LIPID #### [facility] [address] [place] [address] Dr. Toam LemonCholesterol [Mass/Vol]184 mg/dLNormal<=200The [facility] Comment on above:Performed By: #### CMP, URIC, LIPID #### [facility] [address] [place] [address] Dr. Toma LemonCholesterol in HDL [Mass/Vol]40 mg/tMZbfmpr44-39Upv [facility] HealthComment on above:Performed By: #### CMP, URIC, LIPID #### [facility] [address] [place] [address] Dr. Toma LemonCholesterol in LDL [Mass/Vol]108.2 mg/dLTriHealth Good Samaritan HospitalComment on above:Performed By: #### CMP, URIC, LIPID #### [facility] [address] [place] [address] Dr. Toma Wallisesternaresh.total/Cholesterol in HDL [Mass ratio]4.6 {ratio} NormalSt. John Of God HospitalComment on above:Performed By: #### CMP, URIC, LIPID #### [facility] [address] [place] [address] Dr. Toma LemonHDL NORMAL> or = 60 mg/dl - LOW CARDIOVASCULAR RISK <40 mg/dl - HIGH CARDIOVASCULAR RISKTriHealth Good Samaritan HospitalComment on above:Performed By: #### CMP, URIC, LIPID #### [facility] [address] [place] [address] Dr. Tmoa LemonLDL CALC NORMALSEE BELOWTriHealth Good Samaritan HospitalComment on above:Result Comment: <100 mg/dl OPTIMAL 100 - 129 mg/dl NEAR OR ABOVE OPTIMAL 130 - 159 mg/dl BORDERLINE HIGH 160 - 189 mg/dl HIGH >190 mg/dl VERY HIGH Performed By: #### CMP, URIC, LIPID #### [facility] [address] [place] [address] Dr. Toma LemonTriglyceride [Mass/Vol]179 mg/dLCritically high<=150The [facility] HealthComment on above:Performed By: #### CMP, URIC, LIPID #### [facility] [address] [address] [address] Toma LemonVLDL CALC35.8 mg/dLNormalThe [facility] HealthComment on above: Performed By: #### CMP, URIC, LIPID #### [facility] [address] [address] [address] Toma LemonPROF CHEM 8 (BAS METB)on 52-16-1094Bgpby gap [Moles/Vol]12.8 mmol/LNormalThe [facility] HealthComment on above:Performed By: #### CMP, URIC, LIPID #### [facility] [address] [address] [address] Toma LemonCalcium [Mass/Vol]9.7 mg/dLNormal8.5-10.1The [facility] Comment on above:Performed By: #### CMP, URIC, LIPID #### [facility] [address] [address] [address] Toma LemonChloride [Moles/Vol]98 mmol/NVizogy84-838Jal [facility] Comment on above:Performed By: #### CMP, URIC, LIPID #### [facility] [address] [address] [address] Toma LemonCO2 [Moles/Vol]30.8 mmol/XGiuhck04.0-32.0The [facility] Comment on above:Performed By: #### CMP, URIC, LIPID #### [facility] [address] [address] [address] Toma LemonCreatinine [Mass/Vol]0.86 mg/dLNormal0.70-1.30The [facility] HealthComment on above:Performed By: #### CMP, URIC, LIPID #### [facility] [address] [address] [address] Chua ChangEGFR-AF TANZANIAN>60Normal>=60The [facility] HealthComment on above:Performed By: #### CMP, URIC, LIPID #### [facility] [address] [address] [address] Toma OntiverosGFR-NON AF TANZANIAN>60Normal>=60The [facility] on above:Performed By: #### CMP, URIC, LIPID #### [facility] [address] [address] [address] Toma LemonGlucose [Mass/Vol]122 mg/dLCritically jowu68-239Cef [facility] HealthComment on above:Performed By: #### CMP, URIC, LIPID #### [facility] [address] [place] [address] Dr. Toma LemonPotassium [Moles/Vol]3.6 mmol/LNormal3.5-5.1The [facility] Comment on above:Performed By: #### CMP, URIC, LIPID #### [facility] [address] [place] [address] Dr. Toma LemonSodium [Moles/Vol]138 mmol/JToeuaf835-233Snc [facility] Comment on above:Performed By: #### CMP, URIC, LIPID #### [facility] [address] [place] [address] Dr. Toma LemonUrea nitrogen [Mass/Vol]16.0 mg/dLNormal7.0-18.0The [facility] on above:Performed By: #### CMP, URIC, LIPID #### [facility] [address] [place] [address] Dr. Toma LemonUrea nitrogen/Creatinine [Mass ratio]18.6 mg/mgNormalThe [facility] HealthComment on above:Performed By: #### CMP, URIC, LIPID #### [facility] [address] [place] [address] Dr. Toma LemonURIC ACID SERUMon 24-84-0142Ktaay [Mass/Vol]7.4 mg/dLCritically high3.5-7.2The [facility] HealthComment on above:Performed By: #### CMP, URIC, LIPID #### [facility] [address] [place] [address] Dr. Toma Gomez-CoV-2 (COVID-19) RNA ALEXX+probe Ql (Resp)on 05-14-2022 SARS-CoV-2 (COVID-19) RNA ALEXX+probe Ql (Unsp spec)PositiveKnox City HuTerra Other Cardiac Stress Teston 45-87-5749Nizlvjk Stress Test [address], [address], [place] [address] Exercise Stress Test Patient Name: SUSANNE Ordering Physician: [id number] Terry GARCIA Study Date: 04/21/2022 Reading Physician: [id number] Emily Skaggs MD MRN/PID: [id number] Supervising [id number] Kar Sanchez MD, Physician: [facility] Accession/Order#: [id number] Referring Physician: Lazaro OCONNOR Date of : 1955 PCP: Gender: M Fellow: Height: 182.88 cm Nurse: Clarissa Stevenson RN Weight: 120.66 kg Poultry Husbandman: JAY BSA: 2.40 m2 Technologist: BMI: 36.08 kg/m2 Additional Staff: Age: 67 years cc report to: Patient Location: cc report to: [id number] Terry Oconnor MD Study Type: Cardiac Stress Test Diagnosis/ICD: R07.89-Other chest pain; I49.3-Ventricular premature depolarization Indication: Chest Pain Atypical Procedure/CPT: Stress Test Interpretation-[id number]; Stress Test Supervision-[id number] Falls Risk: Low: Patient has low risk [...] The test was terminated due to: leg fat igue and musculoskeletal weakness. Mild sinus tachycardia. Baseline ECG: Normal sinus rhythm. Stress Stage Data: + +---+------+-------+ HR Sys BP Esqueda BP + +---+------+-------+ Baseline Resting 60 142 82 + +---+------+-------+ Baseline Standing 67 136 78 + +---+------+-------+ Stage I 87 158 82 + +---+------+-------+ Stage II 95 166 78 + +---+------+-------+ Stage III 106 174 78 + +---+------+-------+ Recovery ECG: The heart rate recovery was normal. + +---+------+-------+ HR Sys BP Esqueda BP + +---+------+-------+ Recovery I 105 168 80 + +---+------+-------+ Recovery II 98 166 78 + +---+------+-------+ Recovery III 77 142 78 + +---+------+-------+ Recovery IV 75 130 78 + +---+------+-------+ Summary: 1. Submaximal graded exercise test without diagnostic ST-T changes for ischemia. 2. No provoked chest pain. 3. Submaximal exercise stress test with patient able to achieve only 68% of maximum predicted heartrate. 4. Blunted heart rate to response to exercise. 5. Normal heart rate recovery phase. 6. Few PVCs noted during exercise. 7. The adequate level of stress was achieved. [id number] Emily Skaggs MD Electronically signed on 04/21/2022 at 6:01:26 PM Final NormalPoudre Valley HospitalCardiac Stress Test-[facility] DO Work Phone: PROF CHEM 8 ([facility] METB)on 12-04-3504Nttnc gap [Moles/Vol]12.3 mmol/LNormalThe [facility] HealthComment on above:Performed By: #### BMP #### [facility] [address] [place] [address] Dr. Toma LemonCalcium [Mass/Vol]9.1 mg/dLNormal8.5-10.1[facility] Comment on above:Performed By: #### BMP #### [facility] [address] [place] [address] Dr. Toma LemonChloride [Moles/Vol]100 mmol/NIdywap52-224YdrSt. [facility] Of [facility] Hospital Comment on above:Performed By: #### BMP #### [facility] [address] [address] [address] Toma LemonCO2 [Moles/Vol]32.3 mmol/LCritically high21.0-32.0St. [facility] HospitalComment on above:Performed By: #### BMP #### [facility] [address] [place] [address] Dr. Toma LemonCreatinine [Mass/Vol]0.87 mg/dLNormal0.70-1.30The [facility] HealthComment on above:Performed By: #### BMP #### [facility] [address] [place] [address] Dr. Toma OntiverosGFR-AF TANZANIAN>60Normal>=60The [facility] HealthComment on above:Performed By: #### BMP #### [facility] [address] [place] [address] Dr. Toma OntiverosGFR-NON AF TANZANIAN>60Normal>=60The [facility] HealthComment on above:Performed By: #### BMP #### [facility] [address] [address] [address] Toma LemonGlucose [Mass/Vol]116 mg/dLCritically wzgw69-855Nlm [facility] HealthComment on above:Performed By: #### BMP #### [facility] [address] [place] [address] Dr. Toma LemonPotassium [Moles/Vol]3.6 mmol/LNormal3.5-5.1[facility] Comment on above:Performed By: #### BMP #### [facility] [address] [place] [address] Dr. Toma LemonSodium [Moles/Vol]141 mmol/MTrpflx429-972NutSt. [facility] Of [facility] Hospital Comment on above:Performed By: #### BMP #### [facility] [address] [place] [address] Dr. Toma LemonUrea nitrogen [Mass/Vol]10.0 mg/dLNormal7.0-18.0The [facility] HealthComment on above:Performed By: #### BMP #### [facility] [address] [place] [address] Dr. Toma Wolfe nitrogen/Creatinine [Mass ratio]11.5 mg/mgNormalThe [facility] HealthComment on above:Performed By: #### BMP #### [facility] [address] [place] [address] Dr. Toma Mathews Visit (Cardiology)on 70-05-8983Gybtkv-up visit Diagnoses/Problems Assessed PVC (premature ventricular contraction) [...] for and in the presence of, Dr. Terry Oconnor MD Chief Complaint SUSANNE GARCIA is being [...] he acknowledges [facility] and they [...] DAILY. Allergies Medication Penicillins Recorded By: Aysha Juarez; 03/29/2022 8:05:41 AM Family History Father Family [...] complaint. Vitals Vital Signs Recorded: 29Mar2022 08:12AMRecorded: 29Mar2022 08:09AM Knlveytz834, LUE, Vpjsmyu545, RUE, Sitting Pyimqfupv60, LUE, Ipchscf37, RUE, Sitting Heart Rate67, Apical Height6 ft Natgfh067 lb 12.8 oz BMI Qqbgytoonq73.18 kg/m2 BSA Calculated2.41 Tobacco Useb) No PHQ-2 #1. Over the last 2 weeks have you felt down, depressed or hopeless? (If yes, answer PHQ-9 below)No PHQ-2 #2. Over the last 2 weeks have you felt little interest or pleasure in doing things? (If yes,answer PHQ-9 below)No Falls Screening (Age 18+)a) No falls within the last year EKG done in office today. Phy (more content not included)...NormalUH TouchworksTobacco Screening.on 21-43-8193Ecdac depression screening assessmentNoWestern [facility] 250 DO Work Phone: Fall risk assessmenta) No falls within the last year [facility] [address] DO Work Phone: Tobacco use status CPHSb) NoMDeer Park [facility] [place] 250 DO Work Phone: CBC AUTO DIFFon [id number] #0.0 103/ulNormal 0.0-0.1The [facility] HealthComment on above:Performed By: #### CMP, URIC, LIPID #### [facility] [address] [address] [address] Toma LemonBasophils/100 WBC (Bld)0.4 %Normal0.2-2.0The [facility] Comment on above:Performed By: #### CMP, URIC, LIPID #### [facility] [address] [address] [address] Toma Dangelo #0.1 103/ulNormal0.0-0.7The [facility] HealthComment on above: Performed By: #### CMP, URIC, LIPID #### [facility] [address] [address] [address] Toma Ontiverososinophils/100 WBC (Bld)0.8 %Critically low0.9-7.0The [facility] HealthComment on above:Performed By: #### CMP, URIC, LIPID #### [facility] [address] [place] [address] Dr. Toma Ontiverosrythrocyte distribution width (RBC) [Ratio]13.0 %Tbgfzt20.0-15.0 The [facility] HealthComment on above:Performed By: #### CMP, URIC, LIPID #### [facility] [address] [address] [address] Toma Oquendoatohermest (Bld) [Volume fraction]51.4 %Egvwtr27.0-54.0The [facility] on above:Performed By: #### CMP, URIC, LIPID #### [facility] [address] [place] [address] Dr. Toma LemonHemoglobin (Bld) [Mass/Vol]16.9 g/kCYtkbzz10.0-18.0The [facility] HealthComment on above:Performed By: #### CMP, URIC, LIPID #### [facility] [address] [place] [address] Dr. Toma Mesa #0.05 10e3/ulCritically high0.00-0.03The [facility] Comment on above:Performed By: #### CMP, URIC, LIPID #### [facility] [address] [place] [address] Dr. Toma Mesa %0.5 %Normal0.0-0.5The [facility] on above: Performed By: #### CMP, URIC, LIPID #### [facility] [address] [place] [address] Dr. Toma Velasquez #2.3 103/ulNormal1.2-3.8The [facility] on above:Performed By: #### CMP, URIC, LIPID #### [facility] [address] [place] [address] Dr. Toma Davilahocytes/100 WBC (Bld)24.5 %Xivhcg74.5-60.0The [facility] on above:Performed By: #### CMP, URIC, LIPID #### [facility] [address] [place] [address] Dr. Toma EscobarUAL DIFF REQNONormalThe [facility] HealthComment on above: Performed By: #### CMP, URIC, LIPID #### [facility] [address] [place] [address] Dr. Toma More (RBC) [Entitic mass]29.6 leSrrvxk17.9-34.0The [facility] HealthComment on above:Performed By: #### CMP, URIC, LIPID #### [facility] [address] [place] [address] Dr. Toma Moreno (RBC) [Mass/Vol]32.9 g/yXOrgyiy90.9-35.2The [facility] HospitalComment on above:Performed By: #### CMP, URIC, LIPID #### [facility] [address] [place] [address] Dr. T[facility] ([facility] [Entitic vol]90.0 kXJezbuv42.0-94.0The [facility] HealthComment on above:Performed By: #### CMP, URIC, LIPID #### [facility] [address] [place] [address] Dr. Toma Lott #0.9 103/ulCritically high0.3-0.8The [facility] Comment on above:Performed By: #### CMP, URIC, LIPID #### [facility] [address] [place] [address] Dr. Toma Lottocytes/100 WBC (Bld)9.6 %Normal1.7-12.0The [facility] Comment on above:Performed By: #### CMP, URIC, LIPID #### [facility] [address] [place] [address] Dr. Toma Ralph #6.0 103/ulNormal1.4-6.5The [facility] HealthComment on above:Performed By: #### CMP, URIC, LIPID #### [facility] [address] [place] [address] Dr. Toma Luceroutrophils/100 WBC (Bld)64.2 %Tpqisd34.0-75.0The [facility] HealthComment on above:Performed By: #### CMP, URIC, LIPID #### [facility] [address] [place] [address] Dr. Toma Pololet mean volume (Bld) [Entitic vol]12.0 fLNormal9.5-13.5The [facility] HealthComment on above:Performed By: #### CMP, URIC, LIPID #### [facility] [address] [place] [address] Dr. Toma LemonPLT174 103/pzOkavkg726-955Vds [facility] HealthComment on above: Performed By: #### CMP, URIC, LIPID #### [facility] [address] [place] [address] Dr. Toma LemonRBC5.71 106/ulNormal4.70-6.10The [facility] HealthComment on above:Performed By: #### CMP, URIC, LIPID #### [facility] [address] [place] [address] Dr. Toma LemonWBC9.3 103/ulNormal4.0-11.0The [facility] HealthComment on above: Performed By: #### CMP, URIC, LIPID #### [facility] [address] [place] [address] Dr. Toma ToureID PROFILEon 86-77-1923BEXZ-HDL RATIO NORMSEE BELOWTriHealth Good Samaritan HospitalComment on above:Result Comment: 3.3 - 4.4 LOW RISK 4.4 - 7.1 AVERAGE RISK 7.1 - 11.0 MODERATE RISK >11.0 HIGH RISKPerformed By: #### CMP, TSH, LIPID #### [facility] [address] [place] [address] Dr. Toma LemonCholesterol [Mass/Vol]162 mg/dLNormal<=200The [facility] Comment on above:Performed By: #### CMP, TSH, LIPID #### [facility] [address] [place] [address] Dr. Toma Wallisesterol in HDL [Mass/Vol]32 mg/dLCritically oew19-79Oon [facility] HealthComment on above:Performed By: #### CMP, TSH, LIPID #### [facility] [address] [place] [address] Dr. Toma Wallisesterol in LDL [Mass/Vol]57.2 mg/dLTriHealth Good Samaritan HospitalComcaro center on above:Performed By: #### CMP, TSH, LIPID #### [facility] [address] [address] [address] Toma LemonCholesterol.total/Cholesterol in HDL [Mass ratio]5.1 {ratio} NormalThe [facility] HealthComcaro center on above:Performed By: #### CMP, TSH, LIPID #### [facility] [address] [address] [address] Toma Diallo NORMAL> or = 60 mg/dl - LOW CARDIOVASCULAR RISK <40 mg/dl - HIGH CARDIOVASCULAR RISKTriHealth Good Samaritan HospitalComcaro center on above:Performed By: #### CMP, TSH, LIPID #### [facility] [address] [address] [address] Toma LemonLDL CALC NORMALSEE BELOWTriHealth Good Samaritan HospitalComcaro center on above:Result Comment: <100 mg/dl OPTIMAL 100 - 129 mg/dl NEAR OR ABOVE OPTIMAL 130 - 159 mg/dl BORDERLINE HIGH 160 - 189 mg/dl HIGH >190 mg/dl VERY HIGH Performed By: #### CMP, TSH, LIPID #### [facility] [address] [place] [address] Dr. Toma LemonTriglyceride [Mass/Vol]364 mg/dLCritically high<=150The [facility] on above:Performed By: #### CMP, TSH, LIPID #### [facility] [address] [place] [address] Dr. Toma LemonVLDL CALC72.8 mg/dLNoTriHealth McCullough-Hyde Memorial HospitalComcaro center on above: Performed By: #### CMP, TSH, LIPID #### [facility] [address] [place] [address] Dr. Toma LemonPROF 14(COMP METB)on 74-44-3086Nabdihn [Mass/Vol]4.2 g/dLNormal 3.4-5.0[facility] on above:Performed By: #### CMP, TSH, LIPID #### [facility] [address] [place] [address] Dr. Toma LemonAlbumin/Globulin [Mass ratio]1.4 {ratio}NormalSt. John Of God HospitalComment on above:Performed By: #### CMP, TSH, LIPID #### [facility] [address] [place] [address] Dr. Toma Mills [Catalytic activity/Vol]88 U/KKistsf82-902Rlj [facility] HealthComment on above:Performed By: #### CMP, TSH, LIPID #### [facility] [address] [place] [address] Dr. Toma Suárez [Catalytic activity/Vol]53 U/CVastum54-45Kyv [facility] HealthComment on above:Performed By: #### CMP, TSH, LIPID #### [facility] [address] [place] [address] Dr. Toma Mercado gap [Moles/Vol]13.0 mmol/LNormalSt. John Of God Hospital Comment on above:Performed By: #### CMP, TSH, LIPID #### [facility] [address] [place] [address] Dr. Toma Young [Catalytic activity/Vol]29 U/QWodjdy70-17Gsw [facility] HealthComment on above:Performed By: #### CMP, TSH, LIPID #### [facility] [address] [place] [address] Dr. Toma LemonBilirubin [Mass/Vol]1.7 mg/dLCritically high0.2-1.0The [facility] HealthComment on above:Performed By: #### CMP, TSH, LIPID #### [facility] [address] [place] [address] Dr. Toma LemonCalcium [Mass/Vol]8.9 mg/dLNormal8.5-10.1[facility] Comment on above:Performed By: #### CMP, TSH, LIPID #### [facility] [address] [place] [address] Dr. Toma LemonChloride [Moles/Vol]99 mmol/DAmhbpv74-922Iwm [facility] Comment on above:Performed By: #### CMP, TSH, LIPID #### [facility] [address] [place] [address] Dr. Toma LemonCO2 [Moles/Vol]31.2 mmol/GFmszle17.0-32.0The [facility] Comment on above:Performed By: #### CMP, TSH, LIPID #### [facility] [address] [address] [address] Toma LemonCreatinine [Mass/Vol]1.01 mg/dLNormal0.70-1.30The [facility] HealthComment on above:Performed By: #### CMP, TSH, LIPID #### [facility] [address] [address] [address] Toma OntiverosGFR-AF TANZANIAN>60Normal>=60The [facility] HealthComment on above:Performed By: #### CMP, TSH, LIPID #### [facility] [address] [place] [address] Dr. Toma OntiverosGFR-NON AF TANZANIAN>60Normal>=60The [facility] HealthComment on above:Performed By: #### CMP, TSH, LIPID #### [facility] [address] [place] [address] Dr. Toma LemonGlobulin (S) [Mass/Vol]3.0 g/dLNormalThe [facility] HealthComment on above:Performed By: #### CMP, TSH, LIPID #### [facility] [address] [place] [address] Dr. Toma LemonGlucose [Mass/Vol]122 mg/dLCritically yldg76-932Ktf [facility] HealthComment on above:Performed By: #### CMP, TSH, LIPID #### [facility] [address] [place] [address] Dr. Toma LemonPotassium [Moles/Vol]3.2 mmol/LCritically low3.5-5.1The [facility] HealthComment on above:Performed By: #### CMP, TSH, LIPID #### [facility] [address] [place] [address] Dr. Toma LemonProtein [Mass/Vol]7.2 g/dLNormal6.4-8.2The [facility] Comment on above:Performed By: #### CMP, TSH, LIPID #### [facility] [address] [address] [address] Toma Camarillodium [Moles/Vol]140 mmol/JOtgprb359-122Wbv [facility] Comment on above:Performed By: #### CMP, TSH, LIPID #### [facility] [address] [address] [address] Toma LemonUrea nitrogen [Mass/Vol]12.0 mg/dLNormal7.0-18.0The [facility] HealthComment on above:Performed By: #### CMP, TSH, LIPID #### [facility] [address] [place] [address] Dr. Toma Wolfe nitrogen/Creatinine [Mass ratio]11.9 mg/mgNoTriHealth McCullough-Hyde Memorial HospitalComment on above:Performed By: #### CMP, TSH, LIPID #### [facility] [address] [place] [address] Dr. Toma Rowell 76-35-5952TOC5.060 uIU/mLNormal0.358-3.740The [facility] HealthComment on above:Performed By: #### CMP, TSH, LIPID #### [facility] [address] [place] [address] Dr. Toma MOREIRA BELOWTriHealth Good Samaritan HospitalComment on above: Result Comment: <0.34 UIU/ml HYPERTHYROID 0.34-5.60 UIU/ml EUTHYROID >5.60 UIU/ml HYPOTHYROIDPerformed By: #### CMP, TSH, LIPID #### [facility] [address] [place] [address] Dr. Toma Lemon Vital Signs Date TimeVital SignValuePerforming BjsizuxgxWeqgmjrb42-29-2460 08:49-0400 Diastolic blood vxdacoln16 mm[Hg]Atiya Zimmerman BAT PERSON-C Work Phone: [facility]10-07-2025 08:49-0400 Systolic blood pixbjodx425 mm[Hg]Atiya Zimmerman BAT PERSON-C Work Phone: [phone] [place], [place] 2959610-07-2025 08:38-0400 Body uizpxd537.88 Ellenisa Aichholz BAT PERSON-C Work Phone: [phone] [place], [place] 2959610-07-2025 08:38-0400 Body mass index (BMI) [Ratio]37.2 kg/m2Lisa Aichholz BAT PERSON-C Work Phone: [phone] [place], [place] 2959610-07-2025 08:38-0400 Body xhxfpawfbov42.3 [degF]Atiya Getachewhholz BAT PERSON-C Work Phone: [phone]10-07-2025 08:38-0400 Body ytbblb302.39 kgLisa Aichholz BAT PERSON-C Work Phone: [phone]10-07-2025 08:38-0400 Heart rate79 /minLisa Aichholz BAT PERSON-C Work Phone: [phone] [place], [place] 2959610-07-2025 08:38-0400 Respiratory rate20 /minLisa Aichholz BAT PERSON-C Work Phone: [phone] [place], [place] 2959610-07-2025 08:38-0400 SaO2% (BldA) [Mass fraction]96 %Atiya Aichholz BAT PERSON-C Work Phone: [phone] [place], [place] 295[address]10-14-2024 14:13-0400 Body mass index (BMI) [Ratio]35.8 kg/p1Szmhcdfo Carter BAT PERSON Work Phone: [facility] CenterSbndxcjmjd02-75-6427 14:13-0400Body temperature 97.81 [degF]Kranthi Carter BAT PERSON Work Phone: [facility] CenterPfcsqgtdpz23-54-8859 14:13-0400Body zkuydv306.75 kgBrittany Carter BAT PERSON Work Phone: [facility] CenterDezijzzrnb41-66-0531 14:13-0400Diastolic blood qjbaihla33 mm[Hg]Kranthi Carter BAT PERSON Work Phone: [facility] CenterGhphqpolpz65-73-6834 14:13-0400Heart rate72 /min Kranthi Mcgillzpatrick BAT PERSON Work Phone: [facility] CenterIeesruqmnj32-57-7969 14:13-0400Systolic blood dkorkjzd033 mm[Hg]Kranthi Carter BAT PERSON Work Phone: [facility] CenterPswdszpvwp45-34-6690 10:Body vbevyi653.88 cmOhio [facility]08-18-2024 10:-040Body mass index (BMI) [Ratio]35.7 kg/o5CgzvgpevbOhio Valley Surgical Hospital08-18-2024 10:Body pllgpucmneh47.7 [degF][facility]08-18-2024 10:Body xkizfq624.52 kgOhio Valley Surgical Hospital08-18-2024 10:0Heart rate 71 /[facility]08-18-2024 10:26-0400Respiratory rate18 /[facility]08-18-2024 10:-8786AcP6% (BldA) [Mass fraction]98 %[facility]12-01-2023 08:28-0500Blood Pressure LocationPatricsid MARQUEZ [facility]12-01-2023 08:28-0500Diastolic blood tmdpdnat03 mm[Hg]Jon MARQUEZ [facility]12-01-2023 08:28-0500Heart rate79 /minPatrick MARQUEZ [facility]12-01-2023 08:28-0500Respiratory rate16 /minPatrick MARQUEZ [facility]12-01-2023 08:28-0500Systolic blood mm[Hg]Jon MARQUEZ [facility]07-10-2023 10:10-0400Body onapqx380.88 cmAkarthik Verdin Other [employer] Other 07-10-2023 10:10-0400Body mass index (BMI) [Ratio] 34.72 kg/b5OqirfHaley Verdin Other [employer] Other 07-10-2023 10:10-0400Body tbmbtjgnazq89.5 [degF]Haley Verdin Other [employer] Other 07-10-2023 10:10-0400Body oiqljf185.12 kgHaley Verdin Other [employer] Other 07-10-2023 10:10-0400Diastolic blood upmxredt10 mm[Hg] Haley Verdin Other [employer] Other 07-10-2023 10:10-0400Respiratory rate18 /minHaley Verdin Other [employer] Other 07-10-2023 10:10-4541VwG3% (BldA) [Mass fraction]97 % Haley Verdin Other [employer] Other 07-10-2023 10:10-0400Systolic blood ubyesmzy662 mm[Hg] Haley Verdin Other [employer] Other 05-15-2023 09:27-0400Blood Pressure LocationPatricsid MARQUEZ [facility]05-15-2023 09:27-0400Diastolic blood yjquhqsq89 mm[Hg]Jon MARQUEZ [facility]05-15-2023 09:27-0400Heart lbnp437 /minPatrick ownCloud [facility]05-15-2023 09:27-0400Systolic blood vqwtjtad687 mm[Hg]Jon MARQUEZ [facility]03-03-2023 09:22-0500Blood Pressure LocationPatrick MARQUEZ [facility]03-03-2023 09:22-0500Diastolic blood yjhvlmtt551 mm[Hg]Jon MARQUEZ [facility]03-03-2023 09:22-0500Heart rate62 /minPaLazarus Effect [facility]03-03-2023 09:22-0500Systolic blood kbevorjo784 mm[Hg]Jon MARQUEZ [facility]09-29-2022 12:00-0400Body mpzarc917.88 Howard Verdin Other [employer] Other 09-29-2022 12:00-0400Body mass index (BMI) [Ratio] 35.94 kg/s8CuijfHaley Verdin Other [employer] Other 09-29-2022 12:00-0400Body tmeuhpwnrpm49.7 [degF]Haley Verdin Other [employer] Other 09-29-2022 12:00-0400Body rzjgwu793.2 kgDollysangeeta Verdin Other [employer] Other 09-29-2022 12:00-0400Diastolic blood iaprcvsv93 mm[Hg] Haley Verdin Other [employer] Other 09-29-2022 12:00-0400Respiratory rate18 /minHaley Verdin Other [employer] Other 09-29-2022 12:00-0452KsF7% (BldA) [Mass fraction]98 % Haley Verdin Other [employer] Other 09-29-2022 12:00-0400Systolic blood mm[Hg] Haley Verdin Other [employer] Other 09-16-2022 17:30-0400Body jagukb068.88 cmPeggy Polo Other [employer] Other 09-16-2022 17:30-0400Body mass index (BMI) [Ratio] 35.94 kg/l9Dcjer Polo Other [employer] Other 09-16-2022 17:30-0400Body hroaqlwufkm01.7 [degF]Farhana Polo Other [employer] Other 09-16-2022 17:30-0400Body virwwa288.2 kgPeggy Polo Other [employer] Other 09-16-2022 17:30-0400Respiratory rate18 /minPeggy Polo Other [facility] [employer] Other 09-16-2022 17:30-7989ZdY1% (BldA) [Mass fraction]97 % Farhana Polo Other no[employer] Other 08-01-2022 08:12-0400Diastolic blood nemtbspa48 mm[Hg] Shaikh Lovelyagustín Work Phone: [phone]-Dstag [place] [address] DO Work Phone: 1(407) 537-225908-01-2022 08:12-0400Systolic blood fvntvcef018 mm[Hg] Shaikh Lovelyagustín Work Phone: [phone]-Wswul [place] [address] DO Work Phone: 1(412) 456-998208-01-2022 08:09-0400Body iddkrq015.88 Merrill De La Vega Work Phone: [phone]-Sblqi [place] [facility] DO Work Phone: [phone] 160-704508-01-2022 08:09-0400Body mass index (BMI) [Ratio] 36.18 kg/a2SdqrqfShaikh Ceferino Work Phone: [phone]-Omouv [place] 250 DO Work Phone: 1(722) 460-873108-01-2022 08:09-0400Body surface area Derived from formula2.41 l4SsuxtiShaikh Ceferino Work Phone: [phone]-Mkzya [place] 250 DO Work Phone: 1(123) 724-679108-01-2022 08:09-0400Body tqysav772.02 kgShaikh Ceferino Work Phone: [phone]-Dueln [place] 250 DO Work Phone: 1(697) 925-589008-01-2022 08:09-0400Diastolic blood gxcgnbyk25 mm[Hg] Shaikh Bogdangela Work Phone: [phone]-Dmnhe [place] [facility] DO Work Phone: 1(304) 388-834208-01-2022 08:09-0400Heart rate67 /Santiago De La Vega Work Phone: [phone]-Bwemc [facility] DO Work Phone: 1(670) 468-325908-01-2022 08:09-0400Systolic blood mm[Hg] Shaikh Ceferino Work Phone: [phone]-Ygvse [facility] DO Work Phone: Encounters Encounter DateEncounter TypeCare ProviderFacilityStart: 01-11-7590ibnfgjbcubdanica GarciaFacility:[facility] BellevueStart: 06-04-2025 End: 43-79-6316cyuxuzbzzrVcnf J Aichholz BAT PERSON-C Work Phone: [facility] Work Phone: Start: 06-04-2025 End: 25-69-1404Zglcmbv encounter procedureAtiya Zimmemran BAT PERSON-C-[facility] Work Phone: Start: 01-24-2025 End: 65-29-5656hwpaqsrymeEpfdmi E. RossFacility:[facility] BellevueStart: 10-29-2024 ambulatorySamuel RossFacility:[facility] BellevueStart: 09-17-2024 End: 12-39-7065RadkztGmmhlifk Fitzpatrick BAT PERSON Work Phone: NOXD CWM FMComment on above:Essential hypertension (CMS/HCC)Start: 08-25-2024 End: 83-72-0657jumboztaftCFGJOTLUJ NO FAMILYFacility:[facility] Beachwoodtart: 07-25-2024 End: 18-82-1043Wfb Drop Gael Garcia [facility] Start: 07-25-2024 End: 65-69-4446rltonnnvojXnhlke Chevy GarciaFacility:FTMCStart: 07-23-2024 End: 38-32-9378Est Drop offShellen Garcia [facility] Start: 07-23-2024 End: 45-56-9213whhjerwsijYaodwy Chevy GarciaFacility:[facility] BellevueStart: 07-09-2024 End: 10-72-9502Qus Drop offShellen Garcia [facility] Start: 07-09-2024 End: 04-93-2518pvpjxvvqycEcchcr Chevy GarciaFacility:[facility] BellevueStart: 07-06-2024 ambulatorySamuel RossFacility:[facility] BellevueStart: 23-54-2419puhcytlfukLxtomtm WATERSFacility:[facility] FM BellevueStart: 06-11-2024 End: 73-89-5362Mapkyb flowsheetBrittany Carter BAT PERSON Work Phone: [facility] CWM FMStart: 06-11-2024 End: 04-17-1310Qvrbqk flowsheetBrittany Carter BAT PERSON Work Phone: [facility] CWM FMStart: 06-11-2024 End: 45-79-5706Fzmpvq outpatient visit 10 minutesBrittany Carter BAT PERSON Work Phone: [facility] CWM FMComment on above:Viral upper respiratory tract infection (Primary Dx)Start: 06-11-2024 End: 17-91-6304vlqaxyvhqpAJTBHNUI FITZJairon AvailableStart: 06-05-2024 End: 45-23-8807JybgnqQncj Naderer MD Work Phone: [facility] CWM FMComment on above:Essential hypertension (CMS/HCC)Start: 05-23-2024 End: 04-02-8185Tqanjx OnlyBrmike Carter BAT PERSON Work Phone: noms CWM FMComment on above:Essential hypertension (CMS/HCC) (Primary Dx); Hyperlipidemia LDL goal <100 (CMS/HCC); Class 2 obesity due to excess calories with body mass index (BMI) of 36.0 to 36.9 in adult, unspecified whether serious comorbidity present; HypokalemiaStart: 04-15-2024 End: 78-90-9259ujnxqrjfnxYdxkgenlzHenry County Hospital Work Phone: Start: 04-15-2024 End: 62-39-1323Eozpqzr encounter procedureNov[facility] Work Phone: Start: 2024 End: 24-08-6734vymmuqisayHBQZQG FAWWADNot AvailableStart: 10-19-2023 End: 20-96-0965aotjbkzlsfRARREM FAWWADNot AvailableStart: 47-14-6858Ksijuuilo Result EncounterSvicky De La Vega MD Work Phone: noms External Department UnsolicitedStart: 10-03-2023 Clinisync Result EncounterSvicky De La Vega MD Work Phone: noms External Department UnsolicitedStart: 09-15-2023 End: 70-53-7568myeziryyawWbkqi E. FrazierFacility:CD:[id number]: 07-29-2023 End: 81-95-4395xlxhaaphikJbraesq R WATERSFacility:ATRUR UribeueStart: 07-29-2023 End: 13-28-0477Gnxbfuq encounter procedureJon MARQUEZ [facility] start: 03-07-2023 End: 24-77-6645wbcgattfurLzenu Keller Other nort [employer] Other Start: 20-78-8210Cmkwku outpatient visit 15 minutes Haley KellerFPG Urgent Care ClydeStart: 99-09-3402dhsfgylszqSXWEFB H FAWWAD Facility:P3Odqfe: 01-10-2023 End: 98-00-2857Jcicyac encounter procedureDominickdiane MARQUEZ [facility] start: 12-23-2022 End: 92-99-3492gewfziitheAL JON MARQUEZ .Facility:G8Cgtyn: 10-29-2022 End: 56-72-1938Rmuyzeq encounter procedureDominickdiane MARQUEZ [facility] start: 09-16-2022 End: 30-61-6054pxmemvvidyXXC ATIYA RAGHAVFacility:W6Pmtrn: 09-09-2022 End: 69-97-6551nitezsdtwrARICHL H FAWWADFacility:W1Tnfrj: 06-23-2022 End: 58-96-2361gpimniihsdPW SIMONE Alvarado YOGIFacility:V7Mdksh: 05-31-2022 End: 99-87-4686llhzfwiyoqCKXVED H FAWWADFacility:E9Osoum: 05-27-2022 End: 80-04-4861vbxwwevjutKqyfa Keller Other [employer] Other Start: 65-24-0548Kzyjhg outpatient visit 15 minutes Haley LambertFPG Urgent Care ClydeStart: 05-14-2022 End: 61-55-8076ljtwyngtlyLwlox Polo Other [employer] Other Start: 62-26-4842Mbaqyt outpatient new 20 minutesPeggy HartFPG Urgent Care ClydeStart: 57-43-5157Lmygocvbm encounterSvicky De La Vega Work Phone: [phone]-VsoxtGillette Children's [facility]ty [facility] 600 DO Work Phone: Start: 98-23-3607lkrugxhhldEe. [facility] Facility:[id number]: 04-12-2022 End: 24-13-9324tmzkchcbllMFBSXU H FAWWADFacility:F0Ggesy: 85-59-5126Bemwhn consultation new/estab patient 60 minSluis migueldarrian De La Vega Work Phone: [phone]-Zniqp [facility] 250 DO Work Phone: Start: 30-89-7498Mcsguu outpatient new 45 minutes Shaikh Ceferino Work Phone: [facility] Work Phone: Start: 13-63-8259zwnpihqgdxFdiojow [facility] Facility:[id number]: 83-35-6570fjdfwvatnoRdorxld MCGuinn IIFacility:UHCStart: 02-09-2022 End: 70-61-7237dlqcsjkbzyGAONZH H FAWWADFacility:L3Wbrdn: 02-09-2022 End: 40-69-8278qfxvwnwdtwEYRRJK H FAWWADFacility:H1 Procedures DateProcedureProcedure DetailPerforming ClinicianStart: 21-13-4983CHJ LIPID PROFILE (FASTING)Shaikh Ceferino RAE Work Phone: Start: 31-50-1180RBT CMP (CMP) (FOR REMOTE [facility] USE) Shaikh Ceferino RAE Work Phone: Start: 37-72-0402BFS screeningSHAIKH LOVELYDComment on above:Performed By: #### PSAD #### [facility] [address] [place] [address] Dr. Toma Mcgraw (qualifier value)Jon MARQUEZ Operative procedure on footShaikh Ceferino Work Phone: TonsillectomyShaikh Ceferino Work Phone: TonsillecAiram MARQUEZ NEGATED: Highlighted row has not occurred!Colonoscopy Ceferino Work Phone: Plan of Treatment DateCare ActivityDetailAuthorStart: 83-92-5021Tbrptogrd for malignant neoplasm of colonColorectal Cancer ScreeningNOWV HealthcareComment on above:Postponed from 1956 (Patient Refused)Start: 80-81-5404kmjgjxmpojJjvpzencuq Facility: [facility]: 07-30-2024 End: 92-54-5202Jwpdiya encounter rqrjuunoe92/02/2024 8:30 AM EST Office Visit [facility] [address] [place] [address] Kranthi Carter, CARISSA [address] [place] [address] [facility] FMStart: 11-14-2024Medicare Annual Wellness (AWV) Medicare Annual Wellness (AWV)[facility] HealthcareStart: 06-22-2024 End: 59-25-9021Gddnxighgsvg/Creatinine panel in random UrineMicroalbumin / creatinine urine ratio Lab Routine Essential hypertension (CMS/HCC) Hyperlipidemia LDL goal <100 (CMS/HCC) Class 2 obesity due to excess calories with body mass index (BMI) of 36.0 to 36.9 in adult, unspecified whether serious comorbidity present Expected: 06/22/2024 (Approximate), Expires: 05/23/2025NOWV HealthcareComment on above:Expected: 06/22/2024 (Approximate), Expires: 05/23/2025Start: 06-11-2024 End: 66-53-2264Ydxrywt encounter ivrmmxpdd06/14/2024 2:00 PM EDT Office Visit [facility] [address] [place] [address] Kranthi Carter, BAT PERSON [address] [place] [address] [facility] FMComment on above:ArrivedStart: 05-23-2024 End: 69-80-0889ZQE W Auto Differential panel - BloodCBC and differential Lab Routine Essential hypertension ([facility]/HCC) Hyperlipidemia LDL goal <100 (CMS/HCC) Class 2 obesity due to excess calories with body mass index (BMI) of 36.0 to 36.9 in adult,unspecified whether serious comorbidity present Expected: 05/23/2024 (Approximate), Expires: 05/23/2025[facility] HealthcareComment on above: Expected: 05/23/2024 (Approximate), Expires: 05/23/2025Start: 05-23-2024 End: 00-97-3888Uxksrdeegrwat metabolic 2000 panel - Serum or PlasmaComprehensive metabolic panel Lab Routine Essential hypertension ([facility]/HCC) Hyperlipidemia LDL goal <100 (CMS/HCC) Hypokalemia Expected: 05/23/2024 (Approximate), Expires: 05/23/2025[facility] HealthcareComment on above:Expected: 05/23/2024 (Approximate), Expires: 05/23/2025Start: 05-23-2024 End: 78-86-1652Ijvlbwmgqd A1c/Hemoglobin.total in BloodHemoglobin A1c Lab Routine Class 2 obesity due to excess calories with body mass index (BMI) of 36.0 to 36.9 in adult, unspecified whether serious comorbidity present Expected: 05/23/2024 (Approximate), Expires: 05/23/2025[facility] HealthcareComment on above: Expected: 05/23/2024 (Approximate), Expires: 05/23/2025Start: 05-23-2024 End: 01-00-9099Jqmrf 1996 panel - Serum or PlasmaLipid panel Lab Routine Hyperlipidemia LDL goal <100 (CMS/HCC) Expected: 05/23/2024 (Approximate), Expires: 05/23/2025[facility] HealthcareComment on above:Expected: 05/23/2024 (Approximate), Expires: 05/23/2025Start: 05-23-2024 End: 81-60-4538LTD W/REFLEX TO FT4TSH W/REFLEX TO FT4 Lab Routine Essential hypertension (CMS/HCC) Expected: 05/23/2024 (Approximate), Expires: 05/23/2025 [facility] Healthcare Work Phone: Comment on above:Expected: 05/23/2024 (Approximate), Expires: 05/23/2025Start: 83-68-2075Bvehkvpsl vaccinationInfluenza Vaccine (#1) [facility] HealthcareStart: 91-17-0125SEIKHU MYLENE, Provider: GENE MURILLOI NUCLEAR 01,[id number], Status: Pen, Time: 11:00 [facility], Provider: GENE HHVI NUCLEAR 01,[id number], Status: Pen, Time: 11:00 [facility] 250 DO Work Phone: Start: 35-20-0857Yjhuzgmidlaa Vaccine: 65+ Years (1 - PCV)Pneumococcal Vaccine: 65+ Years (1 - PCV)[facility] HealthcareStart: 01-18-2021 Pneumococcal Vaccine: 65+ Years (1 of 1 - PCV)Pneumococcal Vaccine: 65+ Years (1 of 1 - PCV)[facility] HealthcareStart: 1956Medicare Annual Wellness (AWV) Medicare Annual Wellness (AWV)[facility] HealthcareStart: 79-98-9352Dolzymkvq for malignant neoplasm of colonNOWV HealthcareComprehensive metabolic 2000 panel - Serum or PlasmaH[facility] Immunizations Immunization DateImmunizationNotesCare BfsssgnaJgimsica89-46-9166taqcwx vaccine recombinantBrittany Carter BAT PERSON Work Phone: [facility] CenterYntsdzbgef30-72-4337nwnixvoygrda vaccine, unspecified formulationBrittany Carter BAT PERSON Work Phone: [facility] CenterHjmpwmkpxm90-70-0475Pfoqfaowv, High-dose Seasonal, Quadrivalent, Preservative FreeBrittany Carter BAT PERSON Work Phone: [facility] CenterHcruyxlyod25-27-2344qchgth vaccine recombinant Kranthi Carter BAT PERSON Work Phone: noHCA Midwest DivisionLhsafredgk99-72-0578faglbzzpq virus vaccine, unspecified formulationBrittany Carter BAT PERSON Work Phone: [phone]-YdvfiAultman [facility] 40-18-0264UOJW-CoV-2 (COVID-19) mRNAMUL.ORD![id number] MARQUEZ [facility]10-20-2022influenza virus vaccine, unspecified formulationBaptist Health Deaconess Madisonvillesid MARQUEZ [facility]10-20-2022Influenza, High-dose Seasonal, Quadrivalent, Preservative Free Kranthi Carter BAT PERSON Work Phone: [facility] Cancer CenterFypghesbpu62-37-2121Toblaa-XgyTKnpe COVID-19 Vacc 30 MCG/0.3ML Intramuscular SuspensionShai Parental Healthwwad Work Phone: [facility] AndersonComment on above:Series:29-37-1601isgxriscn virus vaccine, unspecified formulationSan [facility] Regional Medical Center [facility]10-01-2021influenza, seasonal, injectableShaikh Fawwad Work Phone: [phone]-[facility]exaWaseca [facility] and [facility] 250 DO Work Phone: Comment on above:Series:47-36-8901Oivfuce High-Dose Quadrivalent 0.7 ML Intramuscular Suspension Prefilled SyringeShaikh Fawwad Work Phone: [facility] Work Phone: [phone]oc virus vaccine, unspecified formulationSan Juan Regional Medical Center [facility]03-31-2021Pfizer-BioNTech COVID-19 Vacc 30 MCG/0.3ML Intramuscular SuspensionShaikh Fawwad Work Phone: [facility] on above:Series:12-22-3210Rkowru-BioNTech COVID-19 Vacc 30 MCG/0.3ML Intramuscular SuspensionSsaint elizabeth hebrondarrian De La Vega Work Phone: [facility] on above:Series:11-78-3254mfnfvgfcr virus vaccine, unspecified formulationZacharysid MARQUEZ [facility]10-30-2019Seasonal, quadrivalent, recombinant, injectable influenza vaccine, preservative freekamryn De La Vega Work Phone: [facility] Work Phone: Payers DatePayer CategoryPayerClarion Hospitaly [id number]-[id number] Health InsuranceAARP Member Subscriber Plan / Payer (Effective 2022-Present) Name: Susanne Garcia Relation to Subscriber: Self Name: Susanne Garcia Payer ID:Not on file Group ID: Not on file Type: Not on file Address: [facility] [address] [place] [id number] [id number] 1960Medicare [id number] 2.8[id number] 2.0.3.33171[id number] 2..840.1.141191.3.579.2.356 [id number] 2.16.840.1.095823.3.57[id number] 2.16.840.1.586549.3.57[id number] 2.16.840.1.574699.3.57[id number] 2.16.840.1.057449.3.579.2.02504-43-8098Bztlhll1441414 2.16.840.1.359478.3.57[id number] 2.16840.1.978089.3.57[id number] 2.16840.1.830762.3.579.[id number] 2.16840.1.280987.3.57[id number] 2.16840.1.925269.3.57[id number] 2.16840.1.413071.3.579.2.18590-54-0777Cvgjdrm0367736 2.16840.1.378547.3.579.[id number] 2.16840.1.310143.3.57[id number] 2.16840.1.021941.3.579.[id number] 2.16840.1.562894.3.57[id number] 2.16.840.1.404579.3.57[id number] 2.16.840.1.486395.3.57[id number] 2.16.840.1.290391.3.57[id number] 2.16.840.1.837036.3.57[id number] 2.16.840.1.378377.3.57[id number] 2.16.840.1.510169.3.57[id number] 2.840.1.210366.3.579.2.[id number] 2.16.840.1.499838.3.57[id number] 2..840.1.126478.3.579.2.12036-14-7732Jwawyvg60712160 2..840.1.150602.3.579.2.01345-57-1589Krmbugh13441710 2.840.1.649[id number] 2.840.1.291987.3.579.2.531 Social History DateTypeDetailFacilityStart: 10-32-1631Dt alcohol useNo alcohol useMP-[facility] 250 DO Work Phone: Comment on above:1 SODA DAILY;Start: 09-10-9618Scx Assigned At [facility]tart: 10-29-2022 End: 04-98-3180Pcjezhe smoking statusNever smoked tobacco (finding)[facility] AndersonComment on above:denies use. Tobacco smoking statusNeverExecutive [facility] of [facility] AndersonComcaro center on above:denies use.Tobacco smoking status NHISTobacco smoking consumption unknownNOMS HealthcareStart: 44-31-4661Opi Assigned At [facility] HospitalNot on fileMCKAY-[facility]E [facility]ITAL [facility]ENTER HealthcareStart: 19-21-8933Qlu Assigned At Memorial Hospitaltart: 95-68-6335Sonozog use and exposureSmokeless tobacco non-userNOMS HealthcareStart: 35-85-1297Ftrrxvdgr beverage intakeLifetime non- drinker (finding)[facility] HealthcareStart: 56-47-7604Xfsvuqj Commentcaffeine: 3-4 cups per day 3 16oz bottles daily, soda/popNOMS HealthcareSexMale (finding) [facility] HospitalNEGATED: Highlighted rowStart: NINFHistory of tobacco usePassive smokerNOWV Healthcare Functional Status YmjfPzgdaugdkaXhymfeLiurnlrl04-13-9666Fkgdbrktxr StatusN/AExec[facility]05-15-2023Functional StatusN/A[facility]03-03-2023Functional StatusN/A [facility] Clinical Notes 05-14-2022 to 07-25-2024 Note Date & QnyhGvweHmejfeio97-87-6959 NoteNurse Consultation Note Reason for Visit Here for lab draw Assessment/Plan Medicare annual wellness visit, subsequent (Z00.00: Encounter for general adult medical examinationwithout abnormal findings) Medications losartan 100 mg Tab, 100 mg= 1 tab(s), Oral, Daily Norvasc 5 mg Tab, 5 mg= 1 tab(s), Oral, Daily Allergies Bactrim (Skin irritation) penicillins (Difficulty breathing) Immunizations Vaccine Date Status zoster vaccine, inactivated 08/01/2023 Recorded zoster vaccine, inactivated 05/30/2023 Recorded influenza virus vaccine, inactivated 05/30/2023 Recorded SARS-CoV-2 (COVID-19) mRNAMUL.ORD![id number] 07/28/2022 Recorded influenza virus vaccine, inactivated 06/17/2022 Recorded SARS-CoV-2 (COVID-19) mRNA BNT-162b2 vax 06/09/2021 Recorded influenza virus vaccine, inactivated 05/29/2021 Recorded influenza virus vaccine, inactivated 05/15/2021 Recorded SARS-CoV-2 (COVID-19) mRNA BNT-162b2 vax 11/26/2020 Recorded SARS-CoV-2 (COVID-19) mRNA BNT-162b2 vax 11/05/2020 Recorded influenza virus vaccine, inactivated 06/27/2019 [facility]edReg[facility] Company11-25-2024 NotePatient Education Emergency Medicine Heart Attack A heart attack occurs when blood and oxygen supply to the heart is cut off. A heart attack can cause damage to the heart that cannot be fixed. A heart attack is also called a myocardial infarction, or MS. If you think you are having a heart attack, do not wait to see if the symptoms will go away. Get medical help right away. What are the causes? This condition may be caused by: ??? A fatty substance (plaque) in the blood vessels (arteries). This can block the flow of blood tothe heart. ??? A blood clot in the blood vessels that go to the heart. The blood clot blocks blood flow. ??? An abnormal heartbeat. ??? Some diseases, such as problems in red blood cells (anemia)orproblems in breathing (respiratoryfailure). ??? Tightening (spasm) of a blood vessel that cuts off blood to the heart. ??? A tear in a blood vessel of the heart. Other causes may include: ??? Using drugs such as cocaine or methamphetamine. ??? Low blood pressure. What increases the risk? Aging. The risk gets higher as you get older. ??? Having a personal or family history of chest pain, heart attack, stroke, or narrowing of the arteries in the legs, arms, head, or stomach (peripheral vascular disease). ??? Having taken chemotherapy or immune-suppressing medicines. ??? Being male. ??? Being overweight or obese. ??? Having any of these conditions: ? High blood pressure. ? High cholesterol. ? Diabetes. ??? Making lifestyle choices such as: ? Drinking too much alcohol. ? Not getting regular exercise. ? Smoking. What are the signs or symptoms? Chest pain. It may feel like: ? Crushing or squeezing. ? Tightness, pressure, fullness, or heaviness. ??? Pain in the arm, neck, jaw, back, or upper body. ??? Heartburn. ??? Upset stomach (indigestion). ??? Shortness of breath. ??? Feeling like you may vomit (nauseous). ??? Cold sweats. ??? Sudden light-headedness, dizziness, or passing out. ??? Feeling tired. How is this treated? A heart attack must be treated as soon as possible. Treatment may include: ??? Medicines to: ? Break up or dissolve blood clots. ? Thin your blood and help prevent blood clots. ? Treat blood pressure. ? Improve blood flow to the heart. ? Reduce pain. ? Reduce cholesterol. ??? Procedures to widen a blocked artery and keep it open. ??? Open heart surgery. ??? Making your heart strong again (cardiac rehabilitation) through exercise, education, and counseling. Follow these instructions at home: Medicines ??? Take dhjd-jhe-humcacp and prescription medicines only as told by your doctor. ??? Do not take these medicines unless your doctor says it is okay: ? NSAIDs, such as ibuprofen, naproxen, or celecoxib. ? Any vitamins or supplements. ? Hormone replacement therapy that has estrogen with or without progestin. ??? If you are taking blood thinners: ? Talk with your doctor before taking any medicines that have aspirin or NSAIDs, such as ibuprofen. ? Take medicines exactly as told. Take them at the same time each day. ? Avoid doing things that could hurt or bruise you. Take action to prevent falls. ? Wear an alert bracelet or carry a card that shows you are taking blood thinners. Lifestyle ??? Do not smoke or use any products that contain nicotine or tobacco. If you need help quitting, ask your doctor. ??? Avoid secondhand smoke. ??? Exercise regularly. Ask your doctor about a cardiac rehab program. ??? Eat heart-healthy foods. Your doctor will tell you what foods to eat. ??? Stay at a healthy weight. ??? Learn ways to lower your stress level. ??? Do not use illegal drugs. Alcohol use ??? Do not drink alcohol if: ? Your doctor tells you not to drink. ? You are , may be , or are planning to become . ??? If you drink alcohol: ? Limit how much you have to: ? 0?1 drink a day for women. ? 0?2 drinks a day for men. ? Know how much alcohol is in your drink. In the [place] one drink equals one 12 oz bottle of beer (355 mL), one 5 oz glass of wine (148 mL), or one 1? oz glass of hard liquor (44 mL). General instructions ??? Work with your doctor to treat other problems you may have, such as diabetes or high blood pressure. ??? Get screened for depression. Get treatment if needed. ??? Keep your vaccines up to date. Get the flu shot (influenza vaccine) every year. ??? Keep all follow-up visits. Contact a doctor if: ??? You feel very sad. ??? You have trouble doing your daily activities. ??? You get light-headed or dizzy. Get help right away if: ??? You have sudden, unexplained discomfort in your chest, arms, back, neck, jaw, or upper body. ??? You have shortness of breath. ??? You have sudden sweating or clammy skin. ??? You feel like you may vomit or you vomit. ??? You fe (more content not included)...[facility]10-14-2024 History of Present illness Narrative* Kranthi Carter NP - 06/11/2024 3:25 PM EDTAssociated Problem(s): Viral upper respiratory tract infection Discussed likely viral etiology. Rest. Fluids. OTC management. Flonase. Cetirizine. * Kranthi Carter NP - 06/11/2024 2:00 PM EDT Subjective Patient ID: Susanne Garcia is a 69 y.o. male who presents for URI and Cough. URI Associated symptoms include coughing, ear pain, rhinorrhea and sneezing. Pertinent negatives include no abdominal pain, chest pain, congestion, diarrhea, dysuria, headaches, rash, sore throat, vomiting or wheezing. Cough Associated symptoms include ear pain, postnasal drip and rhinorrhea. Pertinent negatives include nochest pain, chills, fever, headaches, myalgias, rash, sore throat, shortness of breath or wheezing. Sinus pressure Sinus drainage L ear pain Cough Denies: Fever Body aches Shortness of breath Malaise GI upset Has not tested for COVID. States I feel good other than my nose running Review of Systems Constitutional: Negative for activity change, appetite change, chills, diaphoresis, fatigue, fever and unexpected weight change. HENT: Positive for ear pain, postnasal drip, rhinorrhea and sneezing. Negative for congestion, sinus pressure, sore throat, trouble swallowing and voice change. Eyes: Negative for visual disturbance. Respiratory: Positive for cough. Negative for chest tightness, shortness of breath and wheezing. Cardiovascular: Negative for chest pain, palpitations and leg swelling. Gastrointestinal: Negative for abdominal distention, abdominal pain, blood in stool, constipation, diarrhea and vomiting. Genitourinary: Negative for decreased urine volume, dysuria, flank pain, frequency, hematuria and urgency. Musculoskeletal: Negative for arthralgias, gait problem, joint swelling and myalgias. Skin: Negative for rash. Neurological: Negative for dizziness, tremors, syncope, weakness, light- headedness and headaches. Psychiatric/Behavioral: Negative for decreased concentration and suicidal ideas. The patient is notnervous/anxious. Hematological: Does not bruise/bleed easily. Endocrine: Negative for cold intolerance, heat intolerance, polydipsia, polyphagia and polyuria. Objective Physical Exam Vitals reviewed. Constitutional: Appearance: Normal appearance. HENT: Head: Normocephalic and atraumatic. Right Ear: Tympanic membrane normal. Left Ear: Tympanic membrane normal. Nose: Rhinorrhea present. Mouth/Throat: Mouth: Mucous membranes are moist. Pharynx: Oropharynx is clear. Eyes: Pupils: Pupils are equal, round, and reactive to light. Cardiovascular: Rate and Rhythm: Normal rate and regular rhythm. Pulses: Normal pulses. Heart sounds: Normal heart sounds. Pulmonary: Effort: Pulmonary effort is normal. Breath sounds: Normal breath sounds. Abdominal: General: Abdomen is flat. Bowel sounds are normal. Palpations: Abdomen is soft. Musculoskeletal: General: Normal range of motion. Cervical back: Normal range of motion. Skin: General: Skin is warm and dry. Capillary Refill: Capillary refill takes less than 2 seconds. Neurological: General: No focal deficit present. Mental Status: He is alert and oriented to person, place, and time. Psychiatric: Mood and Affect: Mood normal. Behavior: Behavior normal. Assessment/Plan Problem List Items Addressed This Visit Viral upper respiratory tract infection - Primary Discussed likely viral etiology. Rest. Fluids. OTC management. Flonase. Cetirizine. Relevant Medications fluticasone (Flonase) 50 MCG/ACT nasal spray cetirizine (ZyrTEC ALLERGY) 10 MG tablet benzonatate (Tessalon Perles) 100 MG capsule documented in this encounterEllis Fischel Cancer CenterHkaiubufwk25-27-0517 Instructions* Patient Instructions* Kranthi Carter NP - 06/11/2024 2:00 PM EDT Continue to rest, drink plenty of fluids, and eat a well-balance diet. Resume normal activity. AVOID anything strenuous until you are feeling better. Treatment: Nasal saline spray 2-3 times/dayCold and sinus medication - if you have high blood pressure issues use coricidin hbpAllegra or zyrtec allergy medication once daily. Flonase nasal spray 1-2squirts in each nostril at night. Tylenol for fever and body aches. Mucinex for cough/congestion 600-1,200mg twice daily. Delsym for a dry cough Vitamins: Vitamin C 1,000mg per day. Vitamin D3 2,000 international unit(s) per day.Zinc 25mg per day. WORSENING SYMPTOMS, CHEST PAIN, OR SHORTNESS OF BREATH, GO TO THE NEAREST EMERGENCY DEPARTMENT. documented in this encounterEllis Fischel Cancer CenterVizbdrnitq09-45-4443 Hospital Discharge instructions Patient Education 07/29/2023 09:01:05 [...] urethra. Follow these instructions at home: Take jlpr-heu-lqklpqt and prescription medicines only as told by [...] provider. Document Revised: 03/03/2022 Document Reviewed: 03/03/2022 drumbi Patient Education 2022 [employer]. Follow Up Care 01/10/2023 10:41:16 With:ALMA RAE, Jon Alvarado, URL Address: [address] [place] [address]- When: Unknown [facility] 07-10-2023 Evaluation note* Encounter Date Diagnosis Assessment Notes Treatment Notes Treatment Clinical Notes Feb, Acute swimmer's ear of right calos e (ICD-10 - H60.331) Discussed diagnosis with patient. [...] water inside ear after shower may use supervisor hairspring fabrication on lowest cool setting to blow dry. [...] understanding and is agreeable to treatment plan. 10 Feb, 2023Impacted cerumen of right ear (ICD-10 - H61.21) [...] understanding and is agreeable to treatment plan [facility] Other 05-15-2023 Hospital Discharge instructions Patient Education [...] urethra. Follow these instructions at home: Take inpy-atw-xjmjxbw and prescription medicines only as told by [...] provider. Document Revised: 03/03/2022 Document Reviewed: 03/03/2022 drumbi Patient Education 2022 [employer]. Follow Up Care 10/29/2022 10:07:00 With:ALMA RAE, Jon Alvarado, URL Address: [facility] [address] , [place] [phone] When:Within 6 Month(s) Comments:f/u in 6 months [facility] 03-03-2023 Hospital Discharge instructions Patient Education 10/29/2022 09:52:13 [...] prostate. Follow these instructions at home: Take hrxy-xuz-rwszybg and prescription medicines only as told by [...] 08/12/2001 Document Revised: 10/28/2018 Document Reviewed: 05/05/2017 drumbi Patient Education 2020 [employer]. Follow Up Care 09/23/2022 10:03:40 With:ALMA RAE, Jon Alvarado, URL Address: [address] [place] [address]- When: Unknown [facility] 10-26-2022 NotePROCEDURE: XR KNEE RT 4V or [...] Electronically authenticated by: SIMONE CALIX Date: 2022-06-23 21:55[facility] HealthAjidyhtx40-78-5207 Evaluation note* Encounter Date Diagnosis Assessment Notes Treatment Notes Treatment Clinical Notes Apr, Exacerbation of gout (ICD-10 - M 10.9) Discussed diagnosis with patient. Will send in [...] understanding and is agreeable to treatment plan Apr,therGout home care material was printed [facility] Other 09-16-2022 Evaluation note* Encounter Date Diagnosis Assessment Notes Treatment Notes Treatment Clinical Notes Apr, Contact with and (kumar spected) exposure to covid-19 (ICD-10 - Z20.822) Apr,OVID-19 (ICD-10 - U07.1)COVID testing is positive. Recommended patient initiate self [...] with PCP for further evaluation and mgmt. Apr,therDue to infection control protocols for COVID-19 virus, direct physical contact with patient was limited to only the absolute essential needed assessments. [facility] Other [place] complaint Narrative - ReportedTERRY RADHA is being seen for a cardiovascular evaluation . FANUSRAT SMITH SVT FREQ ECTOPY.- [facility] 250 DO Work Phone: [place] complaint Narrative - ReportedTERRY BOGNER is being seen for a cardiovascular evaluation . FAWWAD LUIS SVT FREQ ECTOPY. [facility] Work Phone: Chimd complaint Narrative - ReportedTERRY RADHA is being seen for a cardiovascular evaluation . FAWWAD ABN HM SVT FREQ ECTOPY. [facility] Work Phone: Evaluation + Plan note Future Appointments Appointment Date:01/10/2023 09:30:00 AM Scheduled Provider:Jon MARQUEZ MD Location:[facility] Appointment Type:URO Office Visit Diagnostic Tests Pending * PSA Total 10/29/22 [facility] evaluation + Plan note Future Appointments Appointment Date:07/29/2023 08:30:00 AM Scheduled Provider:Jon MARQUEZ MD Location:[facility] Appointment Type:URO Office Visit [facility] evaluation + Plan note Future Appointments Appointment Date:07/30/2024 08:45:00 AM Scheduled Provider:Jon MARQUEZ MD Location:[facility] Appointment Type:URO Office Visit Diagnostic Tests Pending * PSA Screen, Total 05/29/24 [facility] evaluation + Plan note Future Appointments Appointment Date:07/23/2024 10:00:00 AM Scheduled Provider:Ari Garcia MD Location:[facility] Appointment Type: Open [facility] Evaluation + Plan note Future Appointments Appointment Date:07/25/2024 08:20:00 AM Scheduled Provider: Location:[facility] Appointment Type: Nurse Visit Appointment Date:01/24/2025 07:00:00 AM Scheduled Provider:Ari Garcia MD [facility] App[facility] Type: Open Appointment Date:07/23/2025 08:00:00 AM Scheduled Provider: Location:[facility] Appointment Type: Medicare Wellness Subsequent Future Scheduled Tests Laboratory* HCV Antibody RFX to Quant PCR 07/23/24 * Lipid Panel 07/23/24 [facility] evaluation + Plan note Future Appointments Appointment Date:01/24/2025 07:00:00 AM Scheduled Provider:Ari Garcia MD [facility] App[facility] Type:FM Open Appointment Date:07/23/2025 08:00:00 AM Scheduled Provider: Location:[facility] Appointment Type: Medicare Wellness Subsequent Diagnostic Tests Pending * HCV Antibody RFX to Quant PCR 07/25/24 [facility] evaluation noteNo assessment information available [facility] Work Phone: evaluation note* Diagnosis Essential hypertension (CMS/HCC) Unspecified essential hypertension documented in this encounter [facility]* Diagnosis Essential hypertension (CMS/HCC)- Primary Unspecified essential hypertension BPH with urinary obstruction Hypertrophy of prostate with urinary obstruction and other lower urinary tract symptoms (LUTS) Hyperlipidemia LDL goal <100 (CMS/HCC) Other and unspecified hyperlipidemia Essential hypertension (CMS/HCC)- Primary Unspecified essential hypertension Hyperlipidemia LDL goal <100 (CMS/HCC) Other and unspecified hyperlipidemia Hypokalemia Hypopotassemia BPH with urinary obstruction Hypertrophy of prostate with urinary obstruction and other lower urinary tract symptoms (LUTS) Gastroesophageal reflux disease without esophagitis Esophageal reflux Viral upper respiratory tract infection- Primary Acute upper respiratory infections of unspecified site documented in this encounter [facility]* Diagnosis Essential hypertension (CMS/HCC)- Primary Unspecified essential hypertension Hyperlipidemia LDL goal <100 (CMS/HCC) Other and unspecified hyperlipidemia Class 2 obesity due to excess calories with body mass index (BMI) of 36.0 to 36.9 in adult, unspecified whether serious comorbidity present Hypokalemia Hypopotassemia documented in this encounter [facility]* Diagnosis Essential hypertension (CMS/HCC)- Primary Unspecified essential hypertension BPH with urinary obstruction Hypertrophy of prostate with urinary obstruction and other lower urinary tract symptoms (LUTS) Hyperlipidemia LDL goal <100 (CMS/HCC) Other and unspecified hyperlipidemia Essential hypertension (CMS/HCC)- Primary Unspecified essential hypertension Hyperlipidemia LDL goal <100 (CMS/HCC) Other and unspecified hyperlipidemia Hypokalemia Hypopotassemia BPH with urinary obstruction Hypertrophy of prostate with urinary obstruction and other lower urinary tract symptoms (LUTS) Gastroesophageal reflux disease without esophagitis Esophageal reflux Viral upper respiratory tract infection- Primary Acute upper respiratory infections of unspecified site Essential hypertension (CMS/HCC) Unspecified essential hypertension documented in this encounter [facility]* Diagnosis Onset Date Resolution Status Admit Date BPH with urinary obstruction acuteOctober 2024 8:27amColon cancer screening declinedacuteOctober 2024 8:27amGERD without esophagitisacuteOctober 2024 8:27amGoutacuteOctober 2024 8:27amHTN (hypertension)acuteOctober 2024 8:27amHyperlipidemia LDL goal <100acuteOctober 2024 8:27amObesityacuteOctober 2024 8:27am Prostate cancer screeningacuteOctober 2024 8:27am [facility] Work Phone: History general Narrative - Reported* Type Description Date Medical History hypercholesterolemia Medical HistoryHypertensionMedical Historyindigestion [place] [employer] Other History of Present illness Narrative* [facility] the [facility] [...] he [facility] and they [...] the emergency room if such symptoms arise. [facility] Plasencia DO Work Phone: History of Present illness Narrative* [facility] is [facility] at the request of his primary care [...] he acknowledges that [facility]al[facility] and they [...] the emergency room if such symptoms arise. [facility] Work Phone: History of Present illness Narrative* [facility] at the request of his primary care [...] he acknowledges that [facility] and they are treating it with supplement. I encouraged him to p ljue that matter with primary care and also [...] the emergency room if such symptoms arise. [facility] Work Phone: Hospital course Narrative No data available for this section [facility] Discharge instructions No data available for this section [facility] Progress note No data available for this section [facility] reason for referral (narrative)No reason for referral information available[facility] Work Phone: Summary Purpose Family History Relationship Condition Age at Onset Recorded Date/T jez father Heart disease Unknown DeceasedUnknownHypertensionUnknownmotherHypertensionUnknownHeart diseaseUnknown No Family History Records Found Advance Directives Advance Directive Response Recorded Date/ Time Advance Directives No April 15, 2024 10:18am Chief Complaint and Reason for Visit Chief Complaint Congestion Chief Complaint Admit Date med refills June [...] 8: 27am Prostate cancer screening June 04 8:27am Additional Source Comments (unrecognized sect ion and [...] section and content) DATE CREATED AUTHOR 03/31/2022 [employer] DATE CREATED AUTHOR AUTHOR'S ORGANIZ ATION 06/22/2022 [facility] DATE CREATED AUTHOR AUTHOR'S ORGANIZ ATION 06/22/2022 [facility] DATE CREATED AUTHOR AUTHOR'S ORGANIZ ATION 02/04/2023 [facility] DATE CREATED AUTHOR AUTHOR'S ORGANIZ ATION 06/13/2024 [facility] DATE CREATED AUTHOR AUTHOR'S ORGANIZ ATION 07/11/2024 [facility] DATE CREATED AUTHOR AUTHOR'S ORGANIZ ATION 07/25/2024 [facility] DATE CREATED AUTHOR AUTHOR'S ORGANIZ ATION 07/26/2024 [facility] DATE CREATED AUTHOR AUTHOR'S ORGANIZ ATION 07/28/2024 [facility] DATE CREATED AUTHOR AUTHOR'S ORGANIZ ATION 07/29/2024 [facility] DATE CREATED AUTHOR AUTHOR'S ORGANIZ ATION 08/27/2024 [facility] DATE CREATED AUTHOR AUTHOR'S ORGANIZ ATION 01/26/2025 [facility] REASON FOR VISIT (unrecogniz ed section and content) ReasonOnset DateCommentsMed Wzifgm0806/05/2024easonCommentsURICoughReasonOnset DateCommentsMed Efeuus5709/17/2024 Patient Care team informatio n (unrecognized section and content) Team MemberRelationshipSpecialtyStart DateEnd Date Shaikh De La Vega MD [facility] - [facility] Team Status: Active Member Role Status Dates Shaikh Ceferino MD Primary Care Provider Active Team Status: Inactive Member Role Status Dates Shaikh Ceferino MD Primary Care Provider Active Start: April 15, 2024 End: April 15, 2024Kaya Corona ProviderActiveStart: April 15, 2024 End: April 15, 2024Team MemberRelationshipSpecialtyStart DateEnd Date Cory Hardy MD [address] [place] [phone] [facility] - [facility]/24 Kranthi Carter NP [address] [place] [phone] [facility] Medicine05/22/24Team MemberRelationshipSpecialtyStart DateEnd Date Cory Hardy MD [address] [place] [phone] [facility] - [facility] Kranthi Carter NP [address] [place] [address] [facility]05/22/24Team MemberRelationshipSpecialtyStart DateEnd Date Cory Hardy MD [address] [place] [phone] [facility] - [facility]05/22/24 Kranthi Carter NP [address] [place] [phone] [facility]05/22/24Team MemberRelationshipSpecialtyStart DateEnd Date Cory Hardy MD [address] [place] [phone] [facility] - [facility]05/22/24 Kranthi Carter NP [address] [place] [address] [facility]05/22/24Team MemberRelationshipSpecialtyStart DateEnd Date Cory Hardy MD [address] [place] [phone] PCP - [facility]05/22/24 Kranthi Carter NP [address] [place] [address] [facility]05/22/24 Team Status: Active Member Role Status Dates DANIEL Gastelum Primary Care Provider Active Team Status: Inactive Member Role Status Dates DANIEL Gastelum Primary Care Provider Active Start: June 04, 2025 End: June 04, 2025AYALA GastelumCAttending ProviderActiveStart: June 04, 2025 End: June 04, 2025 Goals (unrecognized section and content) Goals may be documented in a n alternate section FOR RECORDS PERTAINING TO PATIENTS WHO ARE [...] BE BASED ON THE PRIMARY CLINICAL RECORDS. [facility]. provides no warranty or guarantee of the accuracy or completeness of information in this document.
[2025-06-18 07:55] LABS: Hematocrit 47.7 % (42.0-54.0); Hemoglobin 16.2 g/dL (14.0-18.0); Immature Granulocytes Abs Auto 0.02 10^3/uL (0.00-0.03); Immature Granulocytes Pct Auto 0.2 % (0.0-0.5); Lymphocytes Absolute Auto 2.4 10^3/uL (1.2-3.8); Mean Corpuscular HGB Conc 34.0 g/dL (29.9-35.2); Mean Corpuscular Hemoglobin 30.3 pg (25.9-34.0); Mean Corpuscular Volume 89.2 fL (80.0-94.0); Platelet Count 187 10^3/uL (150-450); Red Blood Count 5.35 10^6/uL (4.70-6.10); White Blood Count 9.0 10^3/uL (4.0-11.0)
[2025-06-18 08:06] LABS: Glucose Urine UA NEGATIVE (NEGATIVE)
[2025-06-18 08:15] LABS: Cast Seen? NONE SEEN #/LPF (NONE SEEN); Crystals Seen? None Seen #/HPF (None Seen)
[2025-06-18 08:23] LABS: Alanine Aminotransferase 50 U/L (16-63); Albumin Globulin Ratio 1.4; Albumin Level 4.4 g/dL (3.4-5.0); Alkaline Phosphatase 90 U/L (46-116); Anion Gap 12.1; Aspartate Amino Transferase 28 U/L (15-37); Blood Urea Nitrogen 10.0 mg/dL (7.0-18.0); Calcium 9.1 mg/dL (8.5-10.1); Carbon Dioxide 30.8 mmol/L (21.0-32.0); Chloride 102 mmol/L (98-107); Cholesterol 189 mg/dL (<=200); Estimated GFR (African America >60 (>=60 mL/min/1.73m^2); Estimated GFR (Non-African Ame >60 (>=60 mL/min/1.73m^2); Globulin 3.2 g/dL; Glucose 122 mg/dL (74-106); HDL Cholesterol 33 mg/dL (40-60); Magnesium 1.8 mg/dL (1.8-2.4); Potassium 3.9 mmol/L (3.5-5.1); Sodium 141 mmol/L (136-145); Total Protein 7.6 g/dL (6.4-8.2); Triglycerides 309 mg/dL (<=150); VLDL CHOLESTEROL 61.8 mg/dL
[2025-06-19 16:22] LABS: Microalbum Creatinine Ratio Ur 27.2 mg/g (0.0-29.9)
== END 2025-06-18 06:52 | disposition home or self-care (01) ==
LOC: LAB 06:51
PROVIDERS: PCP Nurse Practitioner; Visit Provider Nurse Practitioner
DX: E78.5 Hyperlipidemia, unspecified (principal); E66.9 Obesity, unspecified; I10 Essential (primary) hypertension; N39.0 Urinary tract infection, site not specified; M10.9 Gout, unspecified; Z12.5 Encounter for screening for malignant neoplasm of prostate; K21.9 Gastro-esophageal reflux disease without esophagitis
CPT/HCPCS: 36415; 80053; 80061; 81001; 82043; 82570; 83735; 85025; G0103